=== PATIENT | male | born 1960 | race Caucasian/White ===

== ENCOUNTER 2021-07-03 15:29 | Inpatient (IN) | payer OTHER ==
[~2021-07-03] VITALS: Ht 175.3 cm; Wt 84.9 kg
[~2021-07-03 15:29] MED LIST: ACETAMINOPHEN 500 MG TAB (TYLENOL) PO PRN; ALPR0.254 PO; ALPRAZolam 0.25 MG (XANAX) TAB PO PRN; AMLO-250 PO; ASPI325T32 PO; ATOR20TA66 PO; BISACODYL 10 MG SUPP (DULCOLAX) PR PRN; CALCIUM CARBONATE 500 MG (TUMS) TAB.CHEW PO PRN; CLN.1T PO; DOCUSATE SODIUM 100 MG (COLACE) CAP PO PRN; ENOX30DI4 SQ; FLEET ENEMA ADULT 1 EA BTL PR PRN; GLUC1KIT2 IJ; HYDR-3924 PO; INSU100I34 SQ; INSU100V SQ; INSU100V39 SQ; LABE100T6 PO; LACTULOSE SYRUP 10GM/15ML (ENULOSE) 30ML UDC PO PRN; LOPERAMIDE 2 MG (IMODIUM) TABLET PO PRN; LOSA50TA63 PO; MECL50TA3 PO; MELATONIN 3 MG TABLET PO PRN; ONDANSETRON 4 MG (ZOFRAN) ORAL DISSOLVE TAB PO PRN; PAMI30VI8 SQ; PANT40TA52 PO; diphenhydrAMINE 25 MG TAB (BENADRYL) PO PRN; guaiFENesin/CODEINE (ROBITUSSIN AC) 10ML UDC PO PRN
--- NOTE | 2021-07-03 17:10 | PM&R Post Admission Assessment ---
PM&R HP Date of Visit: Jul 03, 2021 Time of Visit: 17:00 History of Present Illness CC: CVA HPI: This is a 61yoWM patient who transferred from [facility] due to debility following a CVA. He continues to have dizziness and is a major fall risk. Nephrotic syndrome dx by Nephrology. 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 He does not smoke or drink. Checked meds and labs and records from [facility]. No BM for several days and has difficulty sleeping. [facility] H&P: Aniyah Julien a 60 y.o.rivka patient of No primary care provider on file.who is being admitted through the emergency room with chief complaint of dizziness. Patient has a history of CKD, diabetes, hypertension. Patient started having room spinning dizziness that was worse with movement. This started yesterday around 3 pmand he also had associated nausea and vomiting.He laid down for 3 hours or so and was feeling better. He was able to drink water and sprite after that.He states it started while he was lying on the ground fixing his car. Dizziness did improve today, but he is still not to baseline. He has been having some nasal congestion and right ear pain and some swelling on the right side of his neck for the past 2 weeks. Patient tried to be ambulated in the ER, but was very off balance. He is not dizzy at rest. It comes on when he stands up, sitting up does not affect as much. Turning his head does not affect it. Past medical and surgical histories, family and social histories, allergies and medications were reviewed and verified with the patient. 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 He reported dizziness only when he went for his MRI otherwise feels fine. There was a concern of acute stroke in the occipital lobe and possible vertebral dissection by neurology. I discussed the case with radiology and no stroke was seen but will have the imagine review again by neuroradiologist. We have ordered MRA to evaluate his vertebral carotid arteries. No contrast due to CKD 06/28 patient was seen and examined. MRI showed acute punctate infarcts in the posterior aspect of the right cerebellar. I discussed with neurologist via secure chart. MRA not done yet. ECHO not done yet. Carotid US showed moderate disease. Reported dizziness with PT. Nephrology: Principal Problem: Hypertensive urgency Active Problems: Type 2 diabetes mellitus with hyperglycemia, without long-term current use of insulin Dizziness CKD (chronic kidney disease) stage 4, GFR 15-29 ml/min Tongue mass-incidental finding Acute suppurative otitis media Hypertensive emergency Head and neck cancer Acute kidney injury superimposed on CKD Demand ischemia Cerebellar stroke SHIV on CKD3-4 due to diabetic nephropathy, nephrotic range proteinuria, no need for urgent HD, US ordered. HTN urgency. Uncontrolled DM. Mild anemia. Electrolytes/ acid base ok. Will check PTH, vit D. Prognosis guarded. MRI: IMPRESSION: 1. Acute punctate infarcts are present along the posterior aspect of the right cerebellar hemisphere in the medial aspect of the left frontal lobe. No evidence of acute intracranial hemorrhage. 2. Patchy foci of signal abnormality in the white matter most likely reflect chronic microvascular disease. SUBJECTIVE: no new events per nursing; patient describes dizzyas near syncope &vertigo particularly when standing no headache, neck pain, double vision, vision loss, slurred speech, difficulty swallowing, difficulty finding words, difficulty walking, focal weakness / numbness / clumsiness, chest pain / pressure, SOB, palpitations, fevers, chills OBJECTIVE: 204/86, 98.4, 91 BPM, 18 RR 96% RA Awake, alert, attentive, NAD; comprehends following Vox3, produces normally and appropriately, no dysarthria Thomas full to monocular testing EOMI, no N, gaze conjugate and crossing midline Face symmetric, tongue midline, shrug 5/5 Strength B UE 5/5 proximal and distal Strength B LE 5/5 proximal and distal Sensation intact to touch B F-A-L No jerking, tremor R UE dysmetria LABS: MRI brain with L frontal DWI changes. TTE negative. ASSESSMENT: 61 yo M with hypertensive encephalopathy causing ischemic stroke RECOMMENDATIONS 1. Reduce SBP <160 now, target BP <140/90 within 6hr; recommend transfer to ICU for intravenous antihypertensive treatment 2. Aspirin 325mg, atorvastatin 40mg qd 3. CTA head & neck preferable over MRA 4. Check stroke serologies: ESR, CRP, HIV, RPR, fasting lipid panel, hemoglobin A1c, vitamin B12 5. PT, OT, ST 6. Call with questions [phone] This visit has been conducted by synchronous interactive video conference. The patient or patients representatives consented to the evaluation. This encounter is appropriate and reasonable under the circumstances given the patients particular presentation at this time. The patient/parent/guardian arteaga s/have been advised of the potential risks and limitations of this mode of assessment and treatment (including but not limited to the absence of in-person examination) and verbally consented for this virtual medicine visit. Any and all of the patients/patients familys questions on this issue have been answered. The patient is located at: [facility]. Staff that participated with the visit included: Facility Staff. I, Felipe Villavicencio MD, performed this video medicine visit from my offsite location at my [facility] [employer] [facility] [employer] office I spent approximately 50 minutes in reviewing clinical data in the EMR, examining the patient, and in preparation of this report Past Tlaxprz-Caoanh-Txegsc Hx Past Med/Social Hx: Reviewed Nursing Past Med/Soc Hx, Reviewed and Corrections made Patient Social History Marrital Status: Employed/Student: employed ([employer]) Alcohol Use: Denies Use Smoking Status: Never a Smoker Past Medical History Surgeries: Orthopedic Cardiac: High Cholesterol, Hypertension Neurological: Stroke Genitourinary: Renal Failure Musculoskeletal: Arthritis Endocrine: Diabetes, Non-Insulin dep HEENT: Cataract Psychosocial: Sleep Difficulties PM&R Allergy/Meds/Data Review Allergies Coded Allergies: diltiazem (Verified Allergy, Unknown, 07/03/21) Home Medications Scheduled Amlodipine Besylate (Amlodipine Besylate), 5 MG PO DAILY, (Reported) Aspirin (Aspirin EC), 325 MG PO DAILY, (Reported) Atorvastatin Calcium (Atorvastatin Calcium), 20 MG PO HS, (Reported) Clonidine HCl (Clonidine HCl), 0.1 MG PO BID, (Reported) Enoxaparin Sodium (Enoxaparin Sodium), 30 MG SQ DAILY, (Reported) Hydralazine HCl (Hydralazine HCl), 50 MG PO Q8H, (Reported) Insulin Glargine,Hum.rec.anlog (Basaglar Kwikpen U-100), 10 UNIT SQ HS, (Reported) Insulin Lispro (Humalog), 0-4 UNIT SQ TIDWM, (Reported) Insulin Lispro (Insulin Lispro), 0-3 UNIT SQ HS, (Reported) Labetalol HCl (Labetalol HCl), 100 MG PO Q8H, (Reported) Losartan Potassium (Losartan Potassium), 50 MG PO DAILY, (Reported) Meclizine HCl (Antivert), 50 MG PO TID, (Reported) Pantoprazole Sodium (Pantoprazole Sodium), 40 MG PO DAILY BEFORE BREAKFAST, (Reported) Scheduled PRN ALPRAZolam (ALPRAZolam), 0.25 MG PO BID PRN for ANXIETY, (Reported) Glucagon,Human Recombinant (Glucagen), 1 MG IJ UD PRN for HYPERGLYCEMIA, (Repo rted) Current Medications Current Medications Reviewed Review of Systems Constitutional: dizziness, malaise, weakness EENTM: blurred vision, double vision Respiratory: no symptoms reported Cardiovascular: no symptoms reported Gastrointestinal: constipation Genitourinary: decreased output Musculoskeletal: back pain, joint pain Skin: no symptoms reported Psychiatric/Neurological: Anxiety, Depressed, Tremors, Weakness Physical Exam Physical Exam Vital Signs Capillary Refill : Height, Weight, BMI Height: '" Weight: lbs. oz. kg; BMI Method: General Appearance: No Apparent Distress, WD/WN, Chronically ill Eyes: Bilateral Eye Normal Inspection, Bilateral Eye PERRL HEENT: PERRL/EOMI, Normal ENT Inspection, Pharynx Normal Neck: Full Range of Motion, Normal Inspection, Non Tender, Supple, Carotid Bruit Respiratory: Chest Non Tender, Lungs Clear, Normal Breath Sounds, No Accessory Muscle Use, No Respiratory Distress Cardiovascular: Regular Rate, Rhythm, No Edema, No Gallop, No JVD, No Murmur, Normal Peripheral Pulses Gastrointestinal: Normal Bowel Sounds, No Organomegaly, No Pulsatile Mass, Non Tender, Soft Back: Normal Inspection, No CVA Tenderness, No Vertebral Tenderness Extremity: Normal Capillary Refill, Normal Inspection, Normal Range of Motion, Non Tender, No Calf Tenderness, No Pedal Edema Neurologic/Psychiatric: Alert, Oriented x3, No Motor/Sensory Deficits, cutch cleaner II- XII Norm as Tested, Abnormal Gait, Depressed Affect, Motor Weakness (generalized 3/5) Skin: Normal Color, Warm/Dry Lymphatic: No Adenopathy PM&R Medical Assessment & Plan REHAB/MEDICAL ASSESSMENT AND PLAN: REHAB IMPAIRMENT GROUP: CVA ETIOLOGIC DIAGNOSIS: CVA The comorbidities that impact the patients function and/or functional outcome by: presumed ENT cancer undx as of yet, dizziness, fall risk, CKD REHAB PLAN: The patient is being admitted to our comprehensive inpatient rehabilitation facility and can tolerate the intensity of service consisting of at least: 180 minutes of therapy a day, 5 out of 7 days a week Rehab treatment will consist of: PT OT will focus on regaining ambulatory skills with assistive devices along with help in increasing ADL independence The patient/family has a good understanding of our discharge process and will benefit from an interdisciplinary inpatient rehabilitation program. The patient has potential to make improvement and is in need of at least two of the following multidisciplinary therapies including but not limited to physical, occupational, speech, and prosthetics and orthotics. Additionally the patient will need services from respiratory, nutritional services, wound care, psychology, etc. (Customize this to each patient). Given the patients complex condition and risk of further medical complications, rehabilitation services cannot be safely or effectively provided at a lower level of care such as a half-way facility. BARRIERS TO DISCHARGE: Dizziness ESTIMATED LOS: 14 days DISPOSITION: Home RELEVANT CHANGES SINCE PREADMISSION SCREENING: I have compared the patients medical and functional status at the time of the preadmission screening and there are: no changes PROGNOSIS: Good REHABILITATION GOALS: 1.PT OT will focus on regaining ambulatory skills with assistive devices along with help in increasing ADL independence All the above goals were reviewed with the patient and he/she is in agreement. By signing this document, I acknowledge that I have personally performed a full physical examination on this patient within 24 hours of admission to this inpatient rehabilitation facility and have determined the patient to be able to tolerate the above course of treatment at an intensive level for a reasonable period of time. I will be completing a detailed individualized Plan of Care for this patient by day #4 of the patients stay based upon the Preadmission Screen, the Post-Admission Evaluation, and the therapy evaluations. 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
[2021-07-03] MEDS ORDERED: MAGNESIUM CITRATE 300 ML BTL PO PRN (17:15)
[2021-07-03 18:20] VITALS: BP 145/65
[2021-07-03] MEDS: DOCUSATE SODIUM 100 MG (COLACE) CAP PO SCH (19:56)
[2021-07-03] MEDS: MIRTAZAPINE 15 MG (REMERON) TAB PO SCH (19:56)
[2021-07-03] MEDS: SENNA W/DOCUSATE (SENOKOT S) TABLET PO SCH (19:57)
[2021-07-03] MEDS: MECLIZINE 25 MG (ANTIVERT) TAB PO SCH (19:57)
[2021-07-03] MEDS: cloNIDine 0.1 MG (CATAPRES) TAB PO SCH (19:57)
[2021-07-03] MEDS: hydrALAZINE (APRESOLINE) 25 MG TAB PO SCH (19:57)
[2021-07-03 20:38] VITALS: BP 129/60
[2021-07-03] MEDS: MELATONIN 3 MG TABLET PO SCH (21:03)
[2021-07-03] MEDS: polyethylene glycoL POWDER 17 GM (MIRALAX) PACK PO SCH (21:03)
[2021-07-04] MEDS: hydrALAZINE (APRESOLINE) 25 MG TAB PO SCH ×3 (03:43→18:03)
[2021-07-04 06:03] LABS: BASOPHILS # (AUTO) 0.1 10^3/uL (0.0-0.1); BASOPHILS % (AUTO) 1 % (0-10); EOSINOPHILS # (AUTO) 0.4 10^3/uL (0.0-0.3); EOSINOPHILS % (AUTO) 3 % (0-10); HEMATOCRIT 22 % (40-54); HEMOGLOBIN 7.4 g/dL (13.3-17.7); LYMPHOCYTES # (AUTO) 2.3 10^3/uL (1.0-4.0); LYMPHOCYTES % (AUTO) 19 % (12-44); MEAN CORPUSCULAR HEMOGLOBIN 30 pg (25-34); MEAN CORPUSCULAR HGB CONC 33 g/dL (32-36); MEAN CORPUSCULAR VOLUME 89 fL (80-99); MEAN PLATELET VOLUME 9.2 fL (9.0-12.2); MONOCYTES # (AUTO) 0.9 10^3/uL (0.0-1.0); MONOCYTES % (AUTO) 7 % (0-12); NEUTROPHILS # (AUTO) 8.7 10^3/uL (1.8-7.8); NEUTROPHILS % (AUTO) 70 % (42-75); PLATELET COUNT 364 10^3/uL (130-400); WHITE BLOOD COUNT 12.5 10^3/uL (4.3-11.0)
[2021-07-04 06:11] LABS: ALBUMIN 2.6 GM/DL (3.2-4.5); POTASSIUM 4.9 MMOL/L (3.6-5.0)
[2021-07-04 06:12] LABS: CALCIUM 8.1 MG/DL (8.5-10.1)
[2021-07-04 06:14] LABS: TOTAL PROTEIN 5.3 GM/DL (6.4-8.2)
[2021-07-04 06:15] LABS: BILIRUBIN,TOTAL 0.3 MG/DL (0.1-1.0)
[2021-07-04 06:17] LABS: CREATININE SERUM 4.05 MG/DL (0.60-1.30)
--- NOTE | 2021-07-04 06:21 | PM&R Progress Note ---
Subjective HPI/CC On Admission Date Seen by Provider: Jul 04, 2021 Time Seen by Provider: 06:20 Subjective/Events-last exam 07/04/2021: Patient settling in well No BM yet only a few things that he is passed that are hard Continue on laxatives Creatinine 4.0 Hemoglobin 7.4 which is chronic No signs of bleeding Check meds and labs Therapy working with him Review of Systems General: Fatigue, Malaise Gastrointestinal: Constipation Objective Exam Vital Signs Vital Signs Date Time Temp Pulse Resp B/P (MAP) Pulse Ox O2 Delivery O2 Flow Rate FiO2 07/04/21 09:03 Room Air 07/04/21 08:00 37.0 73 18 165/72 (103) 97 Capillary Refill : General Appearance: No Apparent Distress, WD/WN, Chronically ill HEENT: PERRL/EOMI, Normal ENT Inspection, Pharynx Normal Neck: Full Range of Motion, Normal Inspection, Non Tender, Supple, Carotid Bruit Respiratory: Chest Non Tender, Lungs Clear, Normal Breath Sounds, No Accessory Muscle Use, No Respiratory Distress Cardiovascular: Regular Rate, Rhythm, No Edema, No Gallop, No JVD, No Murmur, Normal Peripheral Pulses Gastrointestinal: Normal Bowel Sounds, No Organomegaly, No Pulsatile Mass, Non Tender, Soft Back: Normal Inspection, No CVA Tenderness, No Vertebral Tenderness Extremity: Normal Capillary Refill, Normal Inspection, Normal Range of Motion, Non Tender, No Calf Tenderness, No Pedal Edema Neurologic/Psychiatric: Alert, Oriented x3, No Motor/Sensory Deficits, sanitarian inspector II- XII Norm as Tested, Abnormal Gait, Depressed Affect, Motor Weakness (generalized 3/5) Skin: Normal Color, Warm/Dry Lymphatic: No Adenopathy Results/Procedures Lab Laboratory Tests 07/04/21 05:56 Patient resulted labs reviewed. FIM Transfers Therapy Code Descriptions/Definitions Functional [place] Measure: 0=Not Assessed/NA 4=Minimal Assistance 1=Total Assistance 5=Supervision or Setup 2=Maximal Assistance 6=Modified [place] 3=Moderate Assistance 7=Complete IndependenceSCALE: Activities may be completed with or without assistive devices. 9-Llgjlsuznq-mzmywxl completes the activity by him/herself with no assistance from a helper. 5-Set-up or Clean-up Assistance-helper sets up or cleans up; patient completes activity. [place] assists only prior to or following the activity. 4-Supervision or Touching Assistance-helper provides verbal cues and/or touching/steadying and/or contact guard assistance as patient completes activity. Assistance may be provided throughout the activity or intermittently. 3-Partial/Moderate Assistance-helper does LESS THAN HALF the effort. [place] lifts, holds or supports trunk or limbs, but provides less than half the effort. 2-Substantial/Maximal Assistance-helper does MORE THAN HALF the effort. [place] lifts or holds trunk or limbs and provides more than half the effort. 4-Atpbbnrwx-illrba does ALL the effort. Patient does none of the effort to complete the activity. Or, the assistance of 2 or more helpers is required for the patient to complete the activity. If activity was not attempted, code reason: 7-Patient Refused. 9-Not Applicable-not attempted and the patient did not perform the activity before the current illness, exacerbation or injury. 10-Not Attempted due to Environmental Limitations-(lack of equipment, weather restraints, etc.). 88-Not Attempted due to Medical Conditions or Safety Concerns. 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
[2021-07-04 08:00] VITALS: BP 165/72
[2021-07-04] MEDS ORDERED: ENOXAPARIN 40 MG/0.4 ML (LOVENOX) SYR SQ SCH (09:00)
--- NOTE | 2021-07-04 09:31 | Occupational Therapy Eval ---
OT Evaluation-General/PLF Medical Diagnosis Admission Date Jul 03, 2021 at 18:12 Medical Diagnosis: CVA Onset Date: Jun 28, 2021 Therapy Diagnosis Therapy Diagnosis: Decreased ADL skills Precautions Precautions/Isolations: Fall Prevention, Standard Precautions, Pressure Ulcer Weight Bear Status Weight Bearing Restriction: Weight Bearing/Tolerated Referral Physician: Dr. Springer Referral Reason: Activity Tolerance, Self Care, Evaluation/Treatment, Strengthening/ROM Medical History Pertinent Medical History: DM, HTN Additional Medical History Proliferative retinopathy and macular edema, nephrotic syndrome, head and neck CA Current History Pt. became dizzy. Eventually went to hospital. Found to have CVA. Reviewed History: Yes Social History Home: Single Level Current Living Status: Spouse Entry Into Home: Level Entry Steps Into Home: 2 ADL-Prior Level of Function SCALE: Activities may be completed with or without assistive devices. 7-Ybavwargdb-ylytbww completes the activity by him/herself with no assistance from a helper. 5-Set-up or Clean-up Assistance-helper sets up or cleans up; patient completes activity. [place] assists only prior to or following the activity. 4-Supervision or Touching Assistance-helper provides verbal cues and/or touching/steadying and/or contact guard assistance as patient completes activity. Assistance may be provided throughout the activity or intermittently. 3-Partial/Moderate Assistance-helper does LESS THAN HALF the effort. [place] lifts, holds or supports trunk or limbs, but provides less than half the effort. 2-Substantial/Maximal Assistance-helper does MORE THAN HALF the effort. [place] lifts or holds trunk or limbs and provides more than half the effort. 8-Joemngljv-fzatqg does ALL the effort. Patient does none of the effort to complete the activity. Or, the assistance of 2 or more helpers is required for the patient to complete the activity. If activity was not attempted, code reason: 7-Patient Refused. 9-Not Applicable-not attempted and the patient did not perform the activity before the current illness, exacerbation or injury. 10-Not Attempted due to Environmental Limitations-(lack of equipment, weather restraints, etc.). 88-Not Attempted due to Medical Conditions or Safety Concerns. ADL PLOF Comments Pt. reports that he was independent with all tasks. 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 Spouse works outside of the home. Self Care: Independent Functional Cognition: Independent DME/Equipment Comments Pt. currently does not have any type of DME. Occupation: [employer] Self: Yes OT Current Status Subjective No pain reported. Pt. states that he has been significantly dizzy when he gets up, but does not report dizziness on this visit. He is concerned that he has not had a BM in over a week. Appearance Pt. in bed. Alert and pleasant. Agrees to work with OT. Mental Status/Objective Patient Orientation: Person, Place Current Glasses/Contacts: Yes Hand Dominance: Right Upper Extremity ROM WFL Upper Extremity Strength WFL upon strength testing. ADL-Treatment Eating (QC): 6 Oral Hygiene (QC): 7 Shower/Bathe Self (QC): 4 (CGA at times for safety while in shower.) Upper Body Dressing (QC): 4 (CGA while doffing/donning shirt for safety.) Lower Body Dressing (QC): 2 (Max assist overall. Pt. able to thread right LE into underwear and pants while seated, with min assist for balance. OT assisted to thread other leg, and then donned over hips while in stance. Pt. attempted to don over hips, but became unstable on feet.) On/Off Footwear (QC): 2 (OT donned pt's socks and slippers because he states that his spouse always does this for him at home. Pt. states that he can, but it is difficult. Pt. will need training on sock aide and adaptive equipment.) Toileting Hygiene (QC): 3 (Min assist for balance while cleansing self.) Other Treatments Pt. transfers supine-sit with CGA. He does not report dizziness, and states that he is not sure how he will do because he hasn't been up in a week. PT came in to assist with co-treat at this time for safety. PT assessed gait and guided walker, assessed balance, while OT donned shoes and guided pt. to toilet with min assist needed. Noted that pt's gait pattern is almost ataxic in nature. Pt. seems to have difficulty articulating his position in space, and needs constant min assist for guidance, mod assist at times. Pt able to stand with min assist, and then stood again from toilet with min assist. Transferred into shower and required constant supervision/CGA for safety. Pt. able to wash all parts, but does have difficulty reaching for bar, will overshoot/undershoot. Cues to sequence at times. Pt. donned shirt, but then did not pull down over torso. After dressing task, pt. ambulated to chair with min assist. OT brought in scan board, and pt. instructed to find specific pattern, and teller those. He had great difficulty with this. He states that he can't see well, but can't say exactly what that is. In the notes it is states that pt. has proliferative retinopathy and macular edema. Pt. did not mention this and seemed surprised by his vision. OT unaware at this time if visual loss is new due to CVA. Will assess more. Education OT Patient Education: Correct positioning, Modified ADL techniques, Progress toward Goal/Update tx plan, Purpose of tx/functional activities, Reviewed precautions, Rehab process, Transfer techniques Teaching Recipient: Patient Teaching Methods: Demonstration, Discussion Response to Teaching: Verbalize Understanding, Return Demonstration, Reinforcement Needed OT Short Term Goals Short Term Goals Time Frame: Jul 11, 2021 Eatin Oral hygiene: 4 Toileting hygiene: 4 Shower/bathe self: 4 Upper body dressin Lower body dressin Putting on/taking off footwear: 3 OT Usp Goals Chief Business Officer Goals Time Frame: Jul 18, 2021 Eating (QC): 6 Oral Hygiene (QC): 6 Toileting Hygiene (QC): 6 Shower/Bathe Self (QC): 5 Upper Body Dressing (QC): 6 Lower Body Dressing (QC): 5 On/Off Footwear (QC): 6 Additional Goals: 1-Demonstrate ADL Tasks, 2-Verbalize Understanding, 3- ImproveStrength/[place] 1=Demonstrate adherence to instructed precautions during ADL tasks. 2=Patient will verbalize/demonstrate understanding of assistive devices/modifications for ADL. 3=Patient will improve strength/tolerance for activity to enable patient to perform ADL's. OT Education/Plan Problem List/Assessment Assessment: Decreased Activ Tolerance, Dependent Transfers, Impaired Bed Mobility, Impaired Cognition, Impaired Coordination, Impaired Funct Balance, Impaired I ADL's, Impaired Self-Care Skills, Visual-Perceptual Deficit Discharge Recommendations Plan/Recommendations: Continue POC Therapy Discharge Recommendati: Home & Family, Post Acute OT Comment Equipment needs to be determined. Treatment Plan/Plan of Care Treatment,Training & Education: Yes Patient would benefit from OT for education, treatment and training to promote independence in ADL's, mobility, safety and/or upper extremity function for ADL's. Plan of Care: ADL Retraining, Functional Mobility, Group Exercise/Act as Ind, UE Funct Exercise/Act Treatment Duration: Jul 18, 2021 Frequency: At least 5 of 7 days/Wk (IRF) Estimated Hrs Per Day: 1.5 hours per day Agreement: Yes Rehab Potential: Good Time/GCodes Start Time: 07:50 Stop Time: 09:20 Total Time Billed (hr/min): 90 Billed Treatment Time 9415-3680 1, EVM x 10minutes, ADL x 15minutes [id number] ADL x 15minutes Co-treat with PT [id number] ADL x 30minutes, FA x 20minutes RAY AVILA OT Jul 04, 2021 09:31
[2021-07-04] MEDS: LOSARTAN 50 MG (COZAAR) TAB PO SCH (09:38)
[2021-07-04] MEDS: cloNIDine 0.1 MG (CATAPRES) TAB PO SCH ×2 (09:38→21:23)
[2021-07-04] MEDS: amLODIPine 5 MG (NORVASC) TAB PO SCH (09:38)
[2021-07-04] MEDS: SENNA W/DOCUSATE (SENOKOT S) TABLET PO SCH ×2 (09:38→21:23)
[2021-07-04] MEDS: MECLIZINE 25 MG (ANTIVERT) TAB PO SCH ×3 (09:38→21:23)
[2021-07-04] MEDS: polyethylene glycoL POWDER 17 GM (MIRALAX) PACK PO SCH ×2 (09:38→21:22)
[2021-07-04] MEDS: PANTOPRAZOLE 40 MG (PROTONIX) TAB PO SCH (09:38)
[2021-07-04] MEDS: DOCUSATE SODIUM 100 MG (COLACE) CAP PO SCH ×2 (09:38→21:23)
[2021-07-04] MEDS: ASPIRIN E.C. 325 MG (ECOTRIN) TABLET PO SCH (09:40)
[2021-07-04] MEDS: inSUlin ASPART (NovoLOG) 1 UNIT/0.01 ML (CHARGE PER UNIT) SC SCH ×3 (11:46→20:31)
--- NOTE | 2021-07-04 12:05 | Physical Therapy Evaluation ---
PT Evaluation-General Medical Diagnosis Admission Date Jul 03, 2021 at 18:12 Medical Diagnosis: CVA Onset Date: Jun 28, 2021 Therapy Diagnosis Therapy Diagnosis: Impaired mobility Precautions Precautions/Isolations: Fall Prevention, Standard Precautions, Pressure Ulcer Referral Physician: Dr. Springer Reason for Referral: Evaluation/Treatment Medical History Pertinent Medical History: CVA, DM, HTN Additional Medical History chronic kidney disease, L2-4 fracture Current History 1 week ago began having dizziness and listing to the (R). Found to have had a CVA. Transferred to [facility] Rehab yesterday afternoon. Reviewed History: Yes Social History Home: Single Level Current Living Status: Spouse Entry Into Home: Level Entry PT Steps Into Home: 2 PT Steps Inside Home: 0 Prior Prior Level of Function SCALE: Activities may be completed with or without assistive devices. 3-Xsjljldujf-ongdqux completes the activity by him/herself with no assistance from a helper. 5-Set-up or Clean-up Assistance-helper sets up or cleans up; patient completes activity. [place] assists only prior to or following the activity. 4-Supervision or Touching Assistance-helper provides verbal cues and/or touching/steadying and/or contact guard assistance as patient completes activity. Assistance may be provided throughout the activity or intermittently. 3-Partial/Moderate Assistance-helper does LESS THAN HALF the effort. [place] lifts, holds or supports trunk or limbs, but provides less than half the effort. 2-Substantial/Maximal Assistance-helper does MORE THAN HALF the effort. [place] lifts or holds trunk or limbs and provides more than half the effort. 7-Lhjuhikbw-ixkows does ALL the effort. Patient does none of the effort to complete the activity. Or, the assistance of 2 or more helpers is required for the patient to complete the activity. If activity was not attempted, code reason: 7-Patient Refused. 9-Not Applicable-not attempted and the patient did not perform the activity before the current illness, exacerbation or injury. 10-Not Attempted due to Environmental Limitations-(lack of equipment, weather restraints, etc.). 88-Not Attempted due to Medical Conditions or Safety Concerns. Bed Mobility: 6 Transfers (B,C,W/C): 6 Gait: 6 Stairs: 6 Wheelchair Mobility: 9 Indoor Mobility (Ambulation): Independent Stairs: Independent Prior Devices Use: None PT Evaluation-Current Subjective Pt reports dizziness with supine to sit and with prolonged activity in standing. Pt/Family Goals Return home. Objective Patient Orientation: Person, Place, Time, Situation ROM/Strength ROM Upper Extremities WFL ROM Lower Extremities WFL Strength Upper Extremities 5/5 (B) Strength Lower Extremities 5/5 (B) Integumentary/Posture Bowel Incontinence: No Bladder Incontinence: No Neuromuscular (Tone, Coordination, Reflexes) Normal (B) UE/LE reflexes. Slight impairment with (R) LE coordination during standing testing. Sensory Vision: Wears Glasses Hearing: Functional Hand Dominance: Right Sensation Right Upper Extremit: Intact Sensation Left Upper Extremity: Intact Sensation Right Lower Extremit: Intact Sensation Left Lower Extremity: Intact Transfers Roll Left & Right (QC): 3 Sit to Lying (QC): 3 Lying to Sitting/Side of Bed(Q: 3 Sit to Stand (QC): 3 Chair/Fas-xs-Lygrl Xfer(QC): 2 Toilet Transfer (QC): 2 Car Transfer (QC): 2 Gait Does the Patient Walk?: Yes Mode of Locomotion: Walk Anticipated Mode of Locomotion: Walk Walk 10 feet (QC): 2 Walk 50 ft with 2 Turns(QC): 2 Walk 150 ft (QC): 88 Walking 10ft/uneven surface-QC: 2 Distance: 135ft Gait Assistive Device: FWW Comments/Gait Description Pt lists to the (R) intermittently. This is most prevalent after ambulating for >3min or when standing and exercising without UE support. Wheelchair Training Does the Pt Use a Wheelchair?: No Wheel 50 ft with 2 turns (QC): 9 Wheel 150 ft (QC): 9 Stairs #of Steps: 1 1 Step (curb) (QC): 2 4 Steps (QC): 88 12 Steps (QC): 88 Walking Assistive Device: Walker Balance Sitting Static: Good Sitting Dynamic: Fair Standing Static: Poor Standing Dynamic: Poor Picking up an Object (QC): 1 Special Test Comments Performed the Hallpike Will test due to pt report of symptoms beginning after lying on his side working on a vehicle. Pt had (L) torsional nystagmus with (L) posterior canal testing. Performed the Thu maneuver for the (L) side. Repeat testing of the (L) posterior canal was normal. Pt noted the dizziness with head movement was improved. However, his ambulation and balance were unchanged following the treatment. Assessment/Needs Pt has poor balance during ambulation and transfers. He would benefit from PT to address the ambulation and balance to allow him to return home (I). Rehab Potential: Good PT Halfway Goals Halfway Goals PT [id number] Programmer Goals Time Frame: Jul 18, 2021 Roll Left & Right (QC): 5 Sit to Lying (QC): 5 Lying-Sitting on Side/Bed(QC): 5 Sit to Stand (QC): 5 Chair/Khh-mf-Jiyeh Xfer(QC): 5 Toilet Transfer (QC): 5 Car Transfer (QC): 55 Does the Patient Walk: Yes Walk 10 feet (QC): 5 Walk 50ft with 2 Turns (QC): 5 Walk 150 ft (QC): 5 Walking 10ft on Uneven Surface: 5 1 Step (curb) (QC): 5 4 Steps (QC): 5 12 Steps (QC): 5 Picking up an Object (QC): 5 Does the Pt use WC or Scooter?: No Wheel 50 feet with 2 turns (QC: 9 Wheel 150 feet: 9 PT Plan Problem List Problem List: Activity Tolerance, Safety, Balance, Gait, Transfer, Bed Mobility Treatment/Plan Treatment Plan: Continue Plan of Care Treatment Plan: Bed Mobility, Concurrent Therapy, Education, Functional Activity Navya, Functional Strength, Group Therapy, Gait, Safety, Therapeutic Exercise, Transfers Treatment Duration: Jul 18, 2021 Frequency: At least 5 of 7 days/Wk (IRF) Estimated Hrs Per Day: 1.5 hours per day Patient and/or Family Agrees t: Yes Time/GCodes Time In: 1002 Time Out: 1054 Total Billed Treatment Time: 52 Total Billed Treatment 1, chris 35, gt 17 MEIR FERNANDEZ PT Jul 04, 2021 12:05
--- NOTE | 2021-07-04 12:17 | Physical Therapy Daily Note ---
PT Daily Note-Current Subjective Pt continued to report dizziness with supine to sit and head movements. Mental Status Patient Orientation: Person, Place, Time, Situation Transfers SCALE: Activities may be completed with or without assistive devices. 4-Cveqqkuyvb-ygqmskl completes the activity by him/herself with no assistance from a helper. 5-Set-up or Clean-up Assistance-helper sets up or cleans up; patient completes activity. [place] assists only prior to or following the activity. 4-Supervision or Touching Assistance-helper provides verbal cues and/or touching/steadying and/or contact guard assistance as patient completes activity. Assistance may be provided throughout the activity or intermittently. 3-Partial/Moderate Assistance-helper does LESS THAN HALF the effort. [place] lifts, holds or supports trunk or limbs, but provides less than half the effort. 2-Substantial/Maximal Assistance-helper does MORE THAN HALF the effort. [place] lifts or holds trunk or limbs and provides more than half the effort. 9-Pkqeprwiu-ijsnoa does ALL the effort. Patient does none of the effort to complete the activity. Or, the assistance of 2 or more helpers is required for the patient to complete the activity. If activity was not attempted, code reason: 7-Patient Refused. 9-Not Applicable-not attempted and the patient did not perform the activity before the current illness, exacerbation or injury. 10-Not Attempted due to Environmental Limitations-(lack of equipment, weather restraints, etc.). 88-Not Attempted due to Medical Conditions or Safety Concerns. Roll Left & Right (QC): 3 Sit to Lying (QC): 3 Lying to Sitting/Side of Bed(Q: 3 Sit to Stand (QC): 3 Chair/Dzu-rs-Kawas Xfer(QC): 3 Toilet Transfer (QC): 3 Gait Training Does the Patient Walk?: Yes Distance: 80ft x3 Gait Assistive Device: FWW Wheelchair Training Does the Pt Use a Wheelchair?: No Exercises Standing: Dynamic Reaching Ex, Floor clock, Heel/toe raises, 3 way Ex=Flex, Abd, Ext, Sit to Stand Standing Reps: 20 Neuromuscular Performed the Hallpike test. Normal ocular response (B). Continued feeling of dizziness with supine to sit. Treatments Neuromuscular re-education with standing habituation training, no hands, head movements up/down, sides, side bend, and ocular movements. [id number]. Assessment Current Status: Fair Progress Continued dizziness and instability with prolonged activity. Pt requires constant assistance to remain vertical during gait. PT Halfway Goals Beef Cattle Grazier Goals PT Halfway Goals Time Frame: Jul 18, 2021 Roll Left & Right (QC): 5 Sit to Lying (QC): 5 Lying-Sitting on Side/Bed(QC): 5 Sit to Stand (QC): 5 Chair/Ruy-nz-Ragdn Xfer(QC): 5 Toilet Transfer (QC): 5 Car Transfer (QC): 55 Does the Patient Walk: Yes Walk 10 feet (QC): 5 Walk 50ft with 2 Turns (QC): 5 Walk 150 ft (QC): 5 Walking 10ft on Uneven Surface: 5 1 Step (curb) (QC): 5 4 Steps (QC): 5 12 Steps (QC): 5 Picking up an Object (QC): 5 Does the Pt use WC or Scooter?: No Wheel 50 feet with 2 turns (QC: 9 Wheel 150 feet: 9 PT Plan Treatment/Plan Treatment Plan: Continue Plan of Care Treatment Plan: Bed Mobility, Concurrent Therapy, Education, Functional Activity Navya, Functional Strength, Group Therapy, Gait, Safety, Therapeutic Exercise, Transfers Treatment Duration: Jul 18, 2021 Frequency: At least 5 of 7 days/Wk (IRF) Estimated Hrs Per Day: 1.5 hours per day Patient and/or Family Agrees t: Yes Time/GCodes Time In: 1120 Time Out: 1158 Total Billed Treatment Time: 38 Total Billed Treatment 1, gt 10, ex 12, nm 16 MEIR FERNANDEZ PT Jul 04, 2021 12:17
[2021-07-04 20:02] VITALS: BP 151/66
[2021-07-04] MEDS: MELATONIN 3 MG TABLET PO SCH (21:23)
[2021-07-04] MEDS: MIRTAZAPINE 15 MG (REMERON) TAB PO SCH (21:23)
[2021-07-05] MEDS: hydrALAZINE (APRESOLINE) 25 MG TAB PO SCH ×3 (03:25→18:02)
--- NOTE | 2021-07-05 05:59 | PM&R Progress Note ---
Subjective HPI/CC On Admission Date Seen by Provider: Jul 05, 2021 Time Seen by Provider: 06:00 Subjective/Events-last exam 07/05/2021: Patient doing well No concerns Bowel evacuation in process Maintained on laxatives No pain is reported We will start an IV iron infusion and vitamin B12 07/04/2021: Patient settling in well No BM yet only a few things that he is passed that are hard Continue on laxatives Creatinine 4.0 Hemoglobin 7.4 which is chronic No signs of bleeding Check meds and labs Therapy working with him Review of Systems General: Fatigue, Malaise Neurological: Weakness Objective Exam Vital Signs Vital Signs Date Time Temp Pulse Resp B/P (MAP) Pulse Ox O2 Delivery O2 Flow Rate FiO2 07/05/21 11:32 72 159/73 (101) 07/05/21 09:16 Room Air 07/05/21 07:30 36.4 22 96 Capillary Refill : General Appearance: No Apparent Distress, WD/WN, Chronically ill HEENT: PERRL/EOMI, Normal ENT Inspection, Pharynx Normal Neck: Full Range of Motion, Normal Inspection, Non Tender, Supple, Carotid Bruit Respiratory: Chest Non Tender, Lungs Clear, Normal Breath Sounds, No Accessory Muscle Use, No Respiratory Distress Cardiovascular: Regular Rate, Rhythm, No Edema, No Gallop, No JVD, No Murmur, Normal Peripheral Pulses Gastrointestinal: Normal Bowel Sounds, No Organomegaly, No Pulsatile Mass, Non Tender, Soft Back: Normal Inspection, No CVA Tenderness, No Vertebral Tenderness Extremity: Normal Capillary Refill, Normal Inspection, Normal Range of Motion, Non Tender, No Calf Tenderness, No Pedal Edema Neurologic/Psychiatric: Alert, Oriented x3, No Motor/Sensory Deficits, natural gas inspector II- XII Norm as Tested, Abnormal Gait, Depressed Affect, Motor Weakness (generalized 3/5) Skin: Normal Color, Warm/Dry Lymphatic: No Adenopathy Results/Procedures Lab Patient resulted labs reviewed. FIM Transfers Therapy Code Descriptions/Definitions Functional [place] Measure: 0=Not Assessed/NA 4=Minimal Assistance 1=Total Assistance 5=Supervision or Setup 2=Maximal Assistance 6=Modified [place] 3=Moderate Assistance 7=Complete IndependenceSCALE: Activities may be completed with or without assistive devices. 3-Bxcswfinxg-xrqktit completes the activity by him/herself with no assistance from a helper. 5-Set-up or Clean-up Assistance-helper sets up or cleans up; patient completes activity. [place] assists only prior to or following the activity. 4-Supervision or Touching Assistance-helper provides verbal cues and/or touching/steadying and/or contact guard assistance as patient completes activity. Assistance may be provided throughout the activity or intermittently. 3-Partial/Moderate Assistance-helper does LESS THAN HALF the effort. [place] lifts, holds or supports trunk or limbs, but provides less than half the effort. 2-Substantial/Maximal Assistance-helper does MORE THAN HALF the effort. [place] lifts or holds trunk or limbs and provides more than half the effort. 8-Uhvchispc-ogxygn does ALL the effort. Patient does none of the effort to complete the activity. Or, the assistance of 2 or more helpers is required for the patient to complete the activity. If activity was not attempted, code reason: 7-Patient Refused. 9-Not Applicable-not attempted and the patient did not perform the activity before the current illness, exacerbation or injury. 10-Not Attempted due to Environmental Limitations-(lack of equipment, weather restraints, etc.). 88-Not Attempted due to Medical Conditions or Safety Concerns. Roll Left to Right (QC): 3 Sit to Lying (QC): 3 Sit to Stand (QC): 3 Chair/Eka-kt-Qexup Xfer(QC): 3 Car Transfer (QC): 2 Gait Training Does the Patient Walk?: Yes Distance: 80ft x3 Walk 10 feet (QC): 2 Walk 50 ft with 2 Turns(QC): 2 Walk 150 ft (QC): 88 Walking 10ft/uneven surface-QC: 2 Gait Assistive Device: FWW Wheelchair Training Does the Pt Use a Wheelchair?: No Wheel 50 ft with 2 turns (QC): 9 Wheel 150 ft (QC): 9 Stair Training #of Steps: 1 1 Step (curb) (QC): 2 4 Steps (QC): 88 12 Steps (QC): 88 Balance Picking up an Object (QC): 1 ADL-Treatment Eating (QC): 6 Oral Hygiene (QC): 7 Shower/Bathe Self (QC): 4 (CGA at times for safety while in shower.) Upper Body Dressing (QC): 4 (CGA while doffing/donning shirt for safety.) Lower Body Dressing (QC): 2 (Max assist overall. Pt. able to thread right LE into underwear and pants while seated, with min assist for balance. OT assisted to thread other leg, and then donned over hips while in stance. Pt. attempted to don over hips, but became unstable on feet.) On/Off Footwear (QC): 2 (OT donned pt's socks and slippers because he states that his spouse always does this for him at home. Pt. states that he can, but it is difficult. Pt. 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
--- NOTE | 2021-07-05 05:59 | Individualized Plan of Care ---
Individualized Plan of Care Rehab Nursing IPOC Order Admission Date Jul 03, 2021 at 18:12 Current Orders Orders Admission Order(Inpt,Obs,Sdc) (07/03/21 10:47) Vital Signs: Per Unit Policy ( ,16,00 (07/03/21 10:47) Italo Valenzuela (07/03/21 10:47) Sequential Compression Device .admit (07/03/21 10:47) Lead Driver-Inpt Rehab Con (07/03/21 10:47) Rehab Nursing Orders-Ipoc (07/03/21 10:47) Physical Therapy Rehab Orders (07/03/21 10:47) Occupational Therapy Rehab Ord (07/03/21 10:47) Speech Therapy Rehab Orders (07/03/21 10:47) Cbc With Automated Diff (07/04/21 06:00) Comprehensive Metabolic Panel (07/04/21 06:00) Precautions (Aru) (07/03/21 10:47) Rehab-Intensity Of Therapy (07/03/21 10:47) Initiate Admission Nursing Pro .admission (07/03/21 10:47) Alprazolam Tablet (Xanax Tablet) (07/03/21 11:00) Calcium Carbonate Chew Tablet (Antacid C (07/03/21 11:00) Diphenhydramine Tablet (Benadryl Tablet) (07/03/21 11:00) Docusate Sodium Capsule (Colace Capsule) (07/03/21 21:00) Docusate Sodium Capsule (Colace Capsule) (07/03/21 11:00) Bisacodyl Suppository (Dulcolax Supposit (07/03/21 11:00) Lactulose Oral Solution (Enulose Oral So (07/03/21 11:00) Na Phos/Na Biphos Enema (Fleet Enema Juan (07/03/21 11:00) Guaifenesin/Codeine Syrup (Robitussin Ac (07/03/21 11:00) Loperamide Tablet (Imodium Tablet) (07/03/21 11:00) Melatonin Tablet (Melatonin Tablet) (07/03/21 11:00) Polyethylene Glycol Powder Pkt (Miralax (07/03/21 21:00) Ondansetron Oral Dissolve Tab (Zofran (07/03/21 11:00) Senna S Tablet (Senokot S Tablet) (07/03/21 21:00) Code/Resuscitation (07/03/21 10:47) Initiate Admission Nursing Pro .admission (07/03/21 10:47) Acetaminophen Tablet (Tylenol Tablet) (07/03/21 11:00) Amlodipine Tablet (Norvasc Tablet) (07/04/21 09:00) Aspirin Enteric Coated Tablet (Ecotrin T (07/04/21 09:00) Atorvastatin Tablet (Lipitor Tablet) (07/03/21 21:00) Clonidine Tablet (Catapres Tablet) (07/03/21 21:00) Losartan Tablet (Cozaar Tablet) (07/04/21 09:00) Pantoprazole Tablet (Protonix Tablet) (07/04/21 09:00) Hydralazine Tablet (Apresoline Tablet) (07/03/21 19:00) Insulin Determir (Per Unit) (Levemir (Pe (07/03/21 21:00) Meclizine Tablet (Antivert Tablet) (07/03/21 21:00) Magnesium Citrate Oral Soln (Citrate Of (07/03/21 17:15) Soap Suds Enema Until Clear (07/03/21 17:09) Melatonin Tablet (Melatonin Tablet) (07/03/21 21:00) Mirtazapine Tablet (Remeron Tablet) (07/03/21 21:00) Heart Healthy (07/03/21 Dinner) Enoxaparin Injection (Lovenox Injection) (07/04/21 09:00) Accucheck Achs ACHS (07/04/21 06:35) Insulin Aspart (Novolog) (Novolog (Charg (07/04/21 11:00) Vitamin B 12 (07/04/21 06:35) Iron Test (Fe) (07/04/21 06:35) Heparin Injection (Heparin Injection) (07/04/21 06:45) Occult Blood Stool (07/04/21 06:35) Patient Visit (07/04/21 ) Pt Eval Low Complexity (07/04/21 ) Gait Training, Ea 15 Min (07/04/21 ) Exercise Therap, Ea 15 Min (07/04/21 ) Ex Neuromuscular, Ea 15 Min (07/04/21 ) Iron Sucrose Injection (Venofer Injectio (07/05/21 09:00) Iv Heplock-Insert (Order) (07/05/21 06:14) Cyanocobalamin Injection (Vitamin B-12 I (07/05/21 06:15) Cyanocobalamin Tablet (Vitamin B-12 Tabl (07/05/21 07:00) Rehab Nursing Orders: Ongoing Assess. of Cognitive Status, Ongoing Assess. of Function Status, Bladder Management, Bladder Scan, Bladder Training, Bowel Management, Bowel Training, Disease Management & Educaiton, DVT Prophylaxis, Fall Prevention, Fluid/Electrolyte/Nutrition Mgmt, Infection Prevention, Medication Management & Education, Management of Risks & Complications, Management of Skin Intergrity, Nutrition Management, Pain Management, Patient/Family Support, Safety Management, Swallow Precautions Intensity of Therapy to be met Patient to be seen: Min.3h per day/5 of 7d PT IPOC Problem List: Activity Tolerance, Safety, Balance, Gait, Transfer, Bed Mobility Treatment Plan: Continue Plan of Care Bed Mobility, Concurrent Therapy, Education, Functional Activity Navya, Functional Strength, Group Therapy, Gait, Safety, Therapeutic Exercise, Transfers Treatment Duration: Jul 18, 2021 Frequency: At least 5 of 7 days/Wk (IRF) Estimated Hrs Per Day: 1.5 hours per day OT IPOC Problems: Decreased Activ Tolerance, Dependent Transfers, Impaired Bed Mobility, Impaired Cognition, Impaired Coordination, Impaired Funct Balance, Impaired I ADL's, Impaired Self-Care Skills, Visual-Perceptual Deficit OT Treatment, Training and Edu: Yes Plan of Care: ADL Retraining, Functional Mobility, Group Exercise/Act as Ind, UE Funct Exercise/Act Treatment Duration: Jul 18, 2021 Frequency: At least 5 of 7 days/Wk (IRF) Estimated Hrs Per Day: 1.[address] IPOC Speech Therapy Treatment Plan: Modify Plan, See Comments Treatment Duration: Jul 06, 2021 Frequency: 2 times per week Estimated Hrs Per Day: Other Lead Driver/Case Mgmt Lead Driver/Case Managemen: Discharge Planning Dietitian/Marine Service Operator Dietitian/Marine Service Operator to monitor nutritional status and make changes and/or recommendations as needed and work with speech pathology on dietary upgrades as the occur. Physician IPOC Medical Issues being managed closely and that require the 24 hour availability of a physician: Recent stroke with hypertensive urgency with severe dizziness and disequilibrium with chronic kidney disease creatinine 4.0 with iron deficiency anemia will be monitored for any type of decompensation Medical Issues: Bowel/Bladder Function, DVT Prophylaxis, Falls Precautions, Fluid/Electrolyte/Nutrition Balance, Infection Protection, Pain Management, Swallowing Precautions Brief Synthesis of Preadmission Screen, Post-Admission Evaluation, and Therapy Evaluations: PT and OT will focus on ambulation with assistive devices along with fall risk prevention and increase independence in ADLs in order to return back home with spouse Medical Prognosis: Guarded Anticipated Length of Stay: 14 days MICHELLE ABBASI DO Jul 05, 2021 05:59
[2021-07-05] MEDS ORDERED: CYANOCOBALAMIN INJ 1000 MCG/ML IM ONE (06:15)
[2021-07-05] MEDS: inSUlin ASPART (NovoLOG) 1 UNIT/0.01 ML (CHARGE PER UNIT) SC SCH ×4 (06:21→20:26)
[2021-07-05] MEDS: CYANOCOBALAMIN 1,000 MCG (VITAMIN B-12) TABLET PO SCH (06:44)
[2021-07-05 07:30] VITALS: BP 163/71
[2021-07-05] MEDS: ASPIRIN E.C. 325 MG (ECOTRIN) TABLET PO SCH (08:09)
[2021-07-05] MEDS: LOSARTAN 50 MG (COZAAR) TAB PO SCH (08:09)
[2021-07-05] MEDS: amLODIPine 5 MG (NORVASC) TAB PO SCH (08:09)
[2021-07-05] MEDS: DOCUSATE SODIUM 100 MG (COLACE) CAP PO SCH ×2 (08:09→21:21)
[2021-07-05] MEDS: SENNA W/DOCUSATE (SENOKOT S) TABLET PO SCH ×2 (08:09→21:21)
[2021-07-05] MEDS: MECLIZINE 25 MG (ANTIVERT) TAB PO SCH ×3 (08:09→21:20)
[2021-07-05] MEDS: cloNIDine 0.1 MG (CATAPRES) TAB PO SCH ×2 (08:10→21:20)
[2021-07-05] MEDS: polyethylene glycoL POWDER 17 GM (MIRALAX) PACK PO SCH ×2 (08:10→21:21)
[2021-07-05] MEDS: PANTOPRAZOLE 40 MG (PROTONIX) TAB PO SCH (08:10)
[2021-07-05] MEDS: IRON SUCROSE 200 MG/10 ML (VENOFER) VIAL IV SCH (09:03)
[2021-07-05 11:32] VITALS: BP 159/73
[2021-07-05 18:02] VITALS: BP 174/81
[2021-07-05 19:03] VITALS: BP 160/74
[2021-07-05] MEDS: MIRTAZAPINE 15 MG (REMERON) TAB PO SCH (21:20)
[2021-07-05] MEDS: MELATONIN 3 MG TABLET PO SCH (21:20)
[2021-07-06] MEDS: hydrALAZINE (APRESOLINE) 25 MG TAB PO SCH ×3 (03:35→21:33)
[2021-07-06] MEDS: CYANOCOBALAMIN 1,000 MCG (VITAMIN B-12) TABLET PO SCH (06:39)
[2021-07-06] MEDS: inSUlin ASPART (NovoLOG) 1 UNIT/0.01 ML (CHARGE PER UNIT) SC SCH ×4 (06:40→20:58)
[2021-07-06 07:27] VITALS: BP 183/81
[2021-07-06] MEDS: MECLIZINE 25 MG (ANTIVERT) TAB PO SCH ×3 (08:36→21:30)
[2021-07-06] MEDS: cloNIDine 0.1 MG (CATAPRES) TAB PO SCH ×3 (08:36→21:32)
[2021-07-06] MEDS: DOCUSATE SODIUM 100 MG (COLACE) CAP PO SCH ×2 (08:36→21:31)
[2021-07-06] MEDS: polyethylene glycoL POWDER 17 GM (MIRALAX) PACK PO SCH ×2 (08:36→21:29)
[2021-07-06] MEDS: ASPIRIN E.C. 325 MG (ECOTRIN) TABLET PO SCH (08:36)
[2021-07-06] MEDS: LOSARTAN 50 MG (COZAAR) TAB PO SCH (08:36)
[2021-07-06] MEDS: PANTOPRAZOLE 40 MG (PROTONIX) TAB PO SCH (08:36)
[2021-07-06] MEDS: SENNA W/DOCUSATE (SENOKOT S) TABLET PO SCH ×2 (08:36→21:29)
[2021-07-06] MEDS: amLODIPine 5 MG (NORVASC) TAB PO SCH ×2 (08:36→21:34)
--- NOTE | 2021-07-06 08:53 | Occupational Ther Daily Note ---
OT Current Status-Daily Note Subjective Pt alert, laying with HOB raised when OT entered. Pt agreed to therapy. No c/o pain reported. Mental Status/Objective Patient Orientation: Person, Place, Time, Situation Attachments: IV ADL-Treatment Co-treat with PT ([id number]) due to decreased activity tolerance, poor balance, and increase fall risk . PT focusing on gait, transfers, and balance while OT focuses on functional/safe sitting/standing balance, sponge bath/dressing task, and hand placement during transfers. Pt requested to complete sponge bath at EOB. Pt transferred to EOB to complete sponge bath. Pt cleansed/dried UB, LB, chest, abdomen, and juan parts while seated at EOB with CGA due to decreased dynamic sitting balance. Pt sit-stand from EOB to FWW and required Mod A due to decrease standing balance to cleanse buttocks. After set up, pt donned UB dressing. Pt able to thread right LE into underwear and pants while seated, with min assist for balance. OT assisted to thread other leg due to decreased sitting balance. Pt sit-stand from EOB to FWW. Pt required CGA to stabilize pt and Mod A to hike LB dressing. Pt donned socks using figure 4 technique with CGA due to leaning. After set up, pt donned slip on shoes. Therapy Code Descriptions/Definitions Functional [place] Measure: 0=Not Assessed/NA 4=Minimal Assistance 1=Total Assistance 5=Supervision or Setup 2=Maximal Assistance 6=Modified [place] 3=Moderate Assistance 7=Complete IndependenceSCALE: Activities may be completed with or without assistive devices. 0-Jzonfwplhr-nivyqdk completes the activity by him/herself with no assistance from a helper. 5-Set-up or Clean-up Assistance-helper sets up or cleans up; patient completes activity. [place] assists only prior to or following the activity. 4-Supervision or Touching Assistance-helper provides verbal cues and/or touching/steadying and/or contact guard assistance as patient completes activity. Assistance may be provided throughout the activity or intermittently. 3-Partial/Moderate Assistance-helper does LESS THAN HALF the effort. [place] lifts, holds or supports trunk or limbs, but provides less than half the effort. 2-Substantial/Maximal Assistance-helper does MORE THAN HALF the effort. [place] lifts or holds trunk or limbs and provides more than half the effort. 5-Dvdtkjfqi-shhwdv does ALL the effort. Patient does none of the effort to complete the activity. Or, the assistance of 2 or more helpers is required for the patient to complete the activity. If activity was not attempted, code reason: 7-Patient Refused. 9-Not Applicable-not attempted and the patient did not perform the activity before the current illness, exacerbation or injury. 10-Not Attempted due to Environmental Limitations-(lack of equipment, weather restraints, etc.). 88-Not Attempted due to Medical Conditions or Safety Concerns. Other Treatment Pt sit-stand from EOB to FWW. Pt ambulated throughout [facility] using FWW to increase functional/safe mobility. See PT notes for assistance with mobility. Pt required resting break due decreased activity tolerance and pt reporting feeling dizzy. Pt ambulated to gym using FWW. Pt participated in dynamic/static standing/sitting test due to uncoordinated movement patterns. Pt tolerated test well, required multiple resting break throughout session due to feeling dizzy, pt able to recover. See PT notes for accurate scores on test. After session, pt with PT in gym. All needs met. Education OT Patient Education: Correct positioning, Energy conservation, Modified ADL techniques, Safety issues Teaching Recipient: Patient Teaching Methods: Demonstration, Discussion Response to Teaching: Verbalize Understanding OT Short Term Goals Short Term Goals Time Frame: Jul 11, 2021 Eatin Oral hygiene: 4 Toileting hygiene: 4 Shower/bathe self: 4 Upper body dressin Lower body dressin Putting on/taking off footwear: 3 OT Bunch Breaker Machine Operator Goals Bunch Breaker Machine Operator Goals Time Frame: Jul 18, 2021 Eating (QC): 6 Oral Hygiene (QC): 6 Toileting Hygiene (QC): 6 Shower/Bathe Self (QC): 5 Upper Body Dressing (QC): 6 Lower Body Dressing (QC): 5 On/Off Footwear (QC): 6 Additional Goals: 1-Demonstrate ADL Tasks, 2-Verbalize Understanding, 3-ImproveStrength/Navya 1=Demonstrate adherence to instructed precautions during ADL tasks. 2=Patient will verbalize/demonstrate understanding of assistive devices/modifications for ADL. 3=Patient will improve strength/tolerance for activity to enable patient to perform ADL's. OT Education/Plan Problem List/Assessment Assessment: Decreased Safety Aware, Impaired Coordination, Impaired Funct Balance, Impaired Self-Care Skills Discharge Recommendations Plan/Recommendations: Continue POC Treatment Plan/Plan of Care Patient would benefit from OT for education, treatment and training to promote independence in ADL's, mobility, safety and/or upper extremity function for ADL's. Plan of Care: ADL Retraining, Functional Mobility, Group Exercise/Act as Ind, UE Funct Exercise/Act Treatment Duration: Jul 18, 2021 Frequency: At least 5 of 7 days/Wk (IRF) Estimated Hrs Per Day: 1.5 hours per day Agreement: Yes Rehab Potential: Good Time/GCodes Start Time: 08:00 Stop Time: 09:00 Total Time Billed (hr/min): 60 Billed Treatment Time 1 visit -ADL 2 ( 32 mins) FA 2 (28 mins) Co treat ([id number]) CHAVEZ JEFF Jul 06, 2021 08:53
--- NOTE | 2021-07-06 09:13 | Physical Therapy Daily Note ---
PT Daily Note-Current Subjective Pt in bed upon arrival and agrees to co-treat. Pt has no c/o pain at this time. Co-treat d/t pt poor mobility, balance, safety, and decrease risk of falls. Mental Status Patient Orientation: Person, Place, Time, Situation Transfers SCALE: Activities may be completed with or without assistive devices. 5-Sjcfgoftoy-hmjbtxk completes the activity by him/herself with no assistance from a helper. 5-Set-up or Clean-up Assistance-helper sets up or cleans up; patient completes activity. [place] assists only prior to or following the activity. 4-Supervision or Touching Assistance-helper provides verbal cues and/or touching/steadying and/or contact guard assistance as patient completes activity. Assistance may be provided throughout the activity or intermittently. 3-Partial/Moderate Assistance-helper does LESS THAN HALF the effort. [place] lifts, holds or supports trunk or limbs, but provides less than half the effort. 2-Substantial/Maximal Assistance-helper does MORE THAN HALF the effort. [place] lifts or holds trunk or limbs and provides more than half the effort. 9-Vzbeeopci-sululd does ALL the effort. Patient does none of the effort to complete the activity. Or, the assistance of 2 or more helpers is required for the patient to complete the activity. If activity was not attempted, code reason: 7-Patient Refused. 9-Not Applicable-not attempted and the patient did not perform the activity before the current illness, exacerbation or injury. 10-Not Attempted due to Environmental Limitations-(lack of equipment, weather restraints, etc.). 88-Not Attempted due to Medical Conditions or Safety Concerns. Sit to Stand (QC): 3 Gait Training Does the Patient Walk?: Yes Distance: 100' x2, 80' x2 Walk 10 feet (QC): 3 Walk 50 ft with 2 Turns(QC): 3 Gait Persons Needed: 1 Gait Assistive Device: FWW Pt extremely unsteady throughout gait. Pt has accelerated pace, shuffling gait and tends to scissor with turns. VC given for slower pace and to not cross legs. With slower pace, pt more steady during amb. Wheelchair Training Does the Pt Use a Wheelchair?: No Exercises Seated Therapy Exercises: Sit to stand, Long arc quads Seated Reps: 10 Standing: Hip Abduction, Marching Standing Reps: 10 Treatments Co-treat 8:00- 9:00: OT focused on bathing, dressing, and UE strengthening/positioning. PT focused on mobility, balance, and LE streng thening/positioning. Pt completes bed bath while sitting EOB, pt requires Nafisa to hold balance when bathing and dressing LE. Sit to stand to clean bottom and don pants, Nafisa/CGA for steadiness. Pt then amb to therapy gym 100' x2. During gait/standing, pt c/o dizziness, subsides with seated/supine rest. Once in gym, pt completes Heath Balance test, scoring 17/56. Pt unable to complete: picking up object from floor, turning 360', alternate foot on step, tandem stance, and standing on one leg. Pt requires Min/ModA for all dynamic standing activity, and CGA for most static standing. Post Heath test, OT exits tx. 9:00-9:15: Pt completes standing ex, requiring rest breaks between each d/t dizziness. Pt completes seated ex, then amb back to room w/ one seated rest break. Pt returns to bed in room and begins to eat breakfast. Pt remains in bed with all needs met, call light in hand. Assessment Current Status: Fair Progress Pt c/o dizziness with prolonged standing/amb, subsides with seated/supine breaks. Pt requires frequent rest breaks during tx. Pt completed Heath Balance test, scoring 17/56 with rest breaks between each item d/t dizziness. PT Residential Goals Residential Goals PT Residential Goals Time Frame: Jul 18, 2021 Roll Left & Right (QC): 5 Sit to Lying (QC): 5 Lying-Sitting on Side/Bed(QC): 5 Sit to Stand (QC): 5 Chair/Kea-dr-Hglmo Xfer(QC): 5 Toilet Transfer (QC): 5 Car Transfer (QC): 55 Does the Patient Walk: Yes Walk 10 feet (QC): 5 Walk 50ft with 2 Turns (QC): 5 Walk 150 ft (QC): 5 Walking 10ft on Uneven Surface: 5 1 Step (curb) (QC): 5 4 Steps (QC): 5 12 Steps (QC): 5 Picking up an Object (QC): 5 Does the Pt use WC or Scooter?: No Wheel 50 feet with 2 turns (QC: 9 Wheel 150 feet: 9 PT Plan Treatment/Plan Treatment Plan: Continue Plan of Care Treatment Plan: Bed Mobility, Concurrent Therapy, Education, Functional Activity Navya, Functional Strength, Group Therapy, Gait, Safety, Therapeutic Exercise, Transfers Treatment Duration: Jul 18, 2021 Frequency: At least 5 of 7 days/Wk (IRF) Estimated Hrs Per Day: 1.5 hours per day Patient and/or Family Agrees t: Yes Time/GCodes Time In: 800 Time Out: 915 Total Billed Treatment Time: 75 Total Billed Treatment 1, NM x2, FA x2, DEA BUSTILLOS OPAL POLISHER Jul 06, 2021 09:13
--- NOTE | 2021-07-06 10:23 | ST Cognitive Linguistic Eval ---
Speech Evaluation-General Medical Diagnosis CVA Onset Date: Jun 28, 2021 Therapy Diagnosis Therapy Diagnosis: Cognitive-communication Referral Referring Physician: Dr. Springer Medical History Pertinent Medical History: CVA, DM, HTN Reviewed History: Yes Social History Current Living Status: Spouse Speech PLF-Current Status Prior Level of Function [place] . He was working up to the day the CVA occured. Subjective Patient was pleasant and cooperative with the cognitive assessment which was given at bedside. The patient does present with a flat affect. Language Eval: Auditory Comprehends Simple Yes/No Ques: Functional Indent/Objects Multiple Thomas: Functional Ident/Pics in Multiple Thomas: Functional Follows 1-Step Commands: Functional Follows Complex Directions: Functional Follows General Conversations: Functional Objective Cognitive Domain Attention: WNL Memory: WNL Problem Solving: Functional Executive Functions: WNL Visuospatial Skills: WNL Composite Severity Rating: WNL Objective Formal/Standardized Tests [facility] Mental Status ([facility]) Results 28/30, within normal range of function Oral Motor/Speech Production Within Normal Limits Impression Patient is a pleasant 61 y/o male who presents with a flat affect. He was given the SLUMS at bedside with a score of 28/30 obtained. This score is within normal range of function and does not indicate a need for further ST services. Speech Patient Assess Expression of Ideas/Wants: Expression (4) Understanding Verbal Content: Understands (4) Brief Interview-Mental Status: Yes Repetition of Three Words: Three (3) Temporal Orientation: Year: Correct (3) Temporal Orientation: Month: Accurate within 5 days(2) Temporal Orientation: Day: Correct (1) Recall : Wear to say "Sock": Yes, no cue required (2) Recall : Color: Yes, after cueing (1) Recall : Bed: Yes, no cue required (2) Memory/Recall Ability: Current season, Location of own room, That he or she is in a hsp/hsp unit Speech-Plan Patient/Family Goals Patient/Family Goals: Patient plans on returning to his home where he lives with his . Treatment Plan Speech Therapy Treatment Plan: Discontinue ST Treatment Duration: Jul 06, 2021 Frequency: 1 time per week Estimated Hrs Per Day: Other Rehab Potential: Good Barriers to Learning: None identified with cognitive-communication Pt/Family Agrees to Plan: Yes Safety Risks/Education Teaching Recipient: Patient Teaching Methods: Discussion Response to Teaching: Verbalize Understanding Education Topics Provided: Safety within his room, communication of wants/needs Time Speech Therapy Time In: 10:00 Speech Therapy Time Out: 10:30 Total Billed Time: 30 Billed Treatment Time 1, MARÍA ELENA BRADEN B[address] ST Jul 06, 2021 10:22
--- NOTE | 2021-07-06 10:32 | PM&R Progress Note ---
Subjective HPI/CC On Admission Date Seen by Provider: Jul 06, 2021 Time Seen by Provider: 10:30 Subjective/Events-last exam 07/06/2021: Pt doing okay Enema was done yesterday Laxatives will be given No dizziness if he lays in bed BP 180s so initiated Norvasc of 5mg twice daily and changed Hydralazine to 50 TID and Clonidine TID 07/05/2021: Patient doing well No concerns Bowel evacuation in process Maintained on laxatives No pain is reported We will start an IV iron infusion and vitamin B12 07/04/2021: Patient settling in well No BM yet only a few things that he is passed that are hard Continue on laxatives Creatinine 4.0 Hemoglobin 7.4 which is chronic No signs of bleeding Check meds and labs Therapy working with him Review of Systems General: Fatigue, Malaise Gastrointestinal: Constipation Neurological: Weakness, Incoordination Objective Exam Vital Signs Vital Signs Date Time Temp Pulse Resp B/P (MAP) Pulse Ox O2 Delivery O2 Flow Rate FiO2 07/06/21 20:15 97 Room Air 07/06/21 19:47 37.0 76 20 174/68 (103) Capillary Refill : General Appearance: No Apparent Distress, WD/WN, Chronically ill HEENT: PERRL/EOMI, Normal ENT Inspection, Pharynx Normal Neck: Full Range of Motion, Normal Inspection, Non Tender, Supple, Carotid Bruit Respiratory: Chest Non Tender, Lungs Clear, Normal Breath Sounds, No Accessory Muscle Use, No Respiratory Distress Cardiovascular: Regular Rate, Rhythm, No Edema, No Gallop, No JVD, No Murmur, Normal Peripheral Pulses Gastrointestinal: Normal Bowel Sounds, No Organomegaly, No Pulsatile Mass, Non Tender, Soft Back: Normal Inspection, No CVA Tenderness, No Vertebral Tenderness Extremity: Normal Capillary Refill, Normal Inspection, Normal Range of Motion, Non Tender, No Calf Tenderness, No Pedal Edema Neurologic/Psychiatric: Alert, Oriented x3, No Motor/Sensory Deficits, sewing techniques demonstrator II- XII Norm as Tested, Abnormal Gait, Depressed Affect, Motor Weakness (generalized 3/5) Skin: Normal Color, Warm/Dry Lymphatic: No Adenopathy Results/Procedures Lab Patient resulted labs reviewed. FIM Transfers Therapy Code Descriptions/Definitions Functional [place] Measure: 0=Not Assessed/NA 4=Minimal Assistance 1=Total Assistance 5=Supervision or Setup 2=Maximal Assistance 6=Modified [place] 3=Moderate Assistance 7=Complete IndependenceSCALE: Activities may be completed with or without assistive devices. 4-Xwzyssyfkx-knhnnrd completes the activity by him/herself with no assistance from a helper. 5-Set-up or Clean-up Assistance-helper sets up or cleans up; patient completes activity. [employer] assists only prior to or following the activity. 4-Supervision or Touching Assistance-helper provides verbal cues and/or touching/steadying and/or contact guard assistance as patient completes activity. Assistance may be provided throughout the activity or intermittently. 3-Partial/Moderate Assistance-helper does LESS THAN HALF the effort. [employer] lifts, holds or supports trunk or limbs, but provides less than half the effort. 2-Substantial/Maximal Assistance-helper does MORE THAN HALF the effort. [employer] lifts or holds trunk or limbs and provides more than half the effort. 2-Soxlexhnu-lyxpru does ALL the effort. Patient does none of the effort to complete the activity. Or, the assistance of 2 or more helpers is required for the patient to complete the activity. If activity was not attempted, code reason: 7-Patient Refused. 9-Not Applicable-not attempted and the patient did not perform the activity before the current illness, exacerbation or injury. 10-Not Attempted due to Environmental Limitations-(lack of equipment, weather restraints, etc.). 88-Not Attempted due to Medical Conditions or Safety Concerns. Roll Left to Right (QC): 3 Sit to Lying (QC): 3 Sit to Stand (QC): 3 Chair/Wxz-fb-Meptq Xfer(QC): 3 Car Transfer (QC): 2 Gait Training Does the Patient Walk?: Yes Distance: 100' x2, 80' x2 Walk 10 feet (QC): 3 Walk 50 ft with 2 Turns(QC): 3 Walk 150 ft (QC): 88 Walking 10ft/uneven surface-QC: 2 Gait Persons Needed: 1 Gait Assistive Device: FWW Wheelchair Training Does the Pt Use a Wheelchair?: No Wheel 50 ft with 2 turns (QC): 9 Wheel 150 ft (QC): 9 Stair Training #of Steps: 1 1 Step (curb) (QC): 2 4 Steps (QC): 88 12 Steps (QC): 88 Balance Picking up an Object (QC): 1 ADL-Treatment Eating (QC): 6 Oral Hygiene (QC): 7 Shower/Bathe Self (QC): 4 (CGA at times for safety while in shower.) Upper Body Dressing (QC): 4 (CGA while doffing/donning shirt for safety.) Lower Body Dressing (QC): 2 (Max assist overall. Pt. able to thread right LE into underwear and pants while seated, with min assist for balance. OT assisted to thread other leg, and then donned over hips while in stance. Pt. attempted to don over hips, but became unstable on feet.) On/Off Footwear (QC): 2 (OT donned pt's socks and slippers because he states that his spouse always does this for him at home. Pt. states that he can, but it is difficult. Pt. 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
--- NOTE | 2021-07-06 14:09 | Occupational Ther Daily Note ---
OT Current Status-Daily Note Subjective Pt alert, laying in bed when OT entered. Pt agreed to therapy. No c/o pain reported. Mental Status/Objective Patient Orientation: Person, Place, Time, Situation ADL-Treatment Therapy Code Descriptions/Definitions Functional [place] Measure: 0=Not Assessed/NA 4=Minimal Assistance 1=Total Assistance 5=Supervision or Setup 2=Maximal Assistance 6=Modified [place] 3=Moderate Assistance 7=Complete IndependenceSCALE: Activities may be completed with or without assistive devices. 2-Bfxwtelkzo-ekewywj completes the activity by him/herself with no assistance from a helper. 5-Set-up or Clean-up Assistance-helper sets up or cleans up; patient completes activity. [place] assists only prior to or following the activity. 4-Supervision or Touching Assistance-helper provides verbal cues and/or to uching/steadying and/or contact guard assistance as patient completes activity. Assistance may be provided throughout the activity or intermittently. 3-Partial/Moderate Assistance-helper does LESS THAN HALF the effort. [place] lifts, holds or supports trunk or limbs, but provides less than half the effort. 2-Substantial/Maximal Assistance-helper does MORE THAN HALF the effort. [place] lifts or holds trunk or limbs and provides more than half the effort. 1-Xqketfruj-sbyghd does ALL the effort. Patient does none of the effort to complete the activity. Or, the assistance of 2 or more helpers is required for the patient to complete the activity. If activity was not attempted, code reason: 7-Patient Refused. 9-Not Applicable-not attempted and the patient did not perform the activity before the current illness, exacerbation or injury. 10-Not Attempted due to Environmental Limitations-(lack of equipment, weather restraints, etc.). 88-Not Attempted due to Medical Conditions or Safety Concerns. Other Treatment Pt transferred from supine to EOB. While seated at EOB, pt participated in dynamic sitting/standing task of reaching BUE across ALEKSANDR to grasp cone from therapist for improved safety completing ADLs such as dressing/bathing. Pt tole rated task well when sitting. Pt required vc to slow down on task and focus on where the cone was before reaching. Noted visual perception deficit when reaching for cones on L side using RUE. Pt required CGA when completing task when standing due to decreased dynamic standing balance. While seated at EOB, pt particicpated in FM task of crossing midline to grasp pegs and place them into peg board to increase FM skills for opening/closing fasteners and visual perception skills. When asked to pick out purple peg from box, pt grasped a blue peg. When given 2 options of pegs pt grasped correct color 5/5. Pt transferred from EOB to supine. After session, pt laying in bed. Call light in reach and all needs met. Education OT Patient Education: Correct positioning, Purpose of tx/functional activities Teaching Recipient: Patient Teaching Methods: Demonstration, Discussion Response to Teaching: Verbalize Understanding, Return Demonstration OT Short Term Goals Short Term Goals Time Frame: Jul 11, 2021 Eatin Oral hygiene: 4 Toileting hygiene: 4 Shower/bathe self: 4 Upper body dressin Lower body dressin Putting on/taking off footwear: 3 OT Halfway Goals Halfway Goals Time Frame: Jul 18, 2021 Eating (QC): 6 Oral Hygiene (QC): 6 Toileting Hygiene (QC): 6 Shower/Bathe Self (QC): 5 Upper Body Dressing (QC): 6 Lower Body Dressing (QC): 5 On/Off Footwear (QC): 6 Additional Goals: 1-Demonstrate ADL Tasks, 2-Verbalize Understanding, 3- ImproveStrength/[place] 1=Demonstrate adherence to instructed precautions during ADL tasks. 2=Patient will verbalize/demonstrate understanding of assistive devices/modifications for ADL. 3=Patient will improve strength/tolerance for activity to enable patient to perform ADL's. OT Education/Plan Problem List/Assessment Assessment: Decreased Activ Tolerance, Decreased UE Strength, Impaired Coordination, Impaired Funct Balance, Impaired Self-Care Skills Discharge Recommendations Plan/Recommendations: Continue POC Treatment Plan/Plan of Care Patient would benefit from OT for education, treatment and training to promote independence in ADL's, mobility, safety and/or upper extremity function for ADL's. Plan of Care: ADL Retraining, Functional Mobility, Group Exercise/Act as Ind, UE Funct Exercise/Act Treatment Duration: Jul 18, 2021 Frequency: At least 5 of 7 days/Wk (IRF) Estimated Hrs Per Day: 1.5 hours per day Agreement: Yes Rehab Potential: Good Time/GCodes Start Time: 13:15 Stop Time: 13:30 Total Time Billed (hr/min): 15 Billed Treatment Time 1 visit- FA 1 (15 mins) RANDEE,CHAVEZ MONKEY KEEPER Jul 06, 2021 14:09
[2021-07-06 19:47] VITALS: BP 174/68
[2021-07-06] MEDS: MIRTAZAPINE 15 MG (REMERON) TAB PO SCH (21:31)
[2021-07-06] MEDS: MELATONIN 3 MG TABLET PO SCH (21:31)
[2021-07-07] MEDS: inSUlin ASPART (NovoLOG) 1 UNIT/0.01 ML (CHARGE PER UNIT) SC SCH ×4 (05:11→21:12)
[2021-07-07] MEDS: CYANOCOBALAMIN 1,000 MCG (VITAMIN B-12) TABLET PO SCH (06:43)
[2021-07-07 06:52] LABS: ALBUMIN 2.7 GM/DL (3.2-4.5)
[2021-07-07 06:53] LABS: POTASSIUM 5.7 MMOL/L (3.6-5.0)
[2021-07-07 06:54] LABS: CALCIUM 8.4 MG/DL (8.5-10.1)
[2021-07-07 06:55] LABS: TOTAL PROTEIN 5.7 GM/DL (6.4-8.2)
[2021-07-07 06:57] LABS: BILIRUBIN,TOTAL 0.4 MG/DL (0.1-1.0)
[2021-07-07 06:59] LABS: CREATININE SERUM 3.27 MG/DL (0.60-1.30)
--- NOTE | 2021-07-07 07:22 | PM&R Progress Note ---
Subjective HPI/CC On Admission Date Seen by Provider: Jul 07, 2021 Time Seen by Provider: 09:30 Subjective/Events-last exam 07/07/2021: Patient doing well Blood pressure very resistant so adding meds Consulting Dr. Cheng for iron deficiency and Procrit request Starting sodium bicarb Starting Kayexalate Had complete bowel evacuation this morning 07/06/2021: Pt doing okay Enema was done yesterday Laxatives will be given No dizziness if he lays in bed BP 180s so initiated Norvasc of 5mg twice daily and changed Hydralazine to 50 TID and Clonidine TID 07/05/2021: Patient doing well No concerns Bowel evacuation in process Maintained on laxatives No pain is reported We will start an IV iron infusion and vitamin B12 07/04/2021: Patient settling in well No BM yet only a few things that he is passed that are hard Continue on laxatives Creatinine 4.0 Hemoglobin 7.4 which is chronic No signs of bleeding Check meds and labs Therapy working with him Review of Systems Neurological: Weakness, Incoordination Objective Exam Vital Signs Vital Signs Date Time Temp Pulse Resp B/P (MAP) Pulse Ox O2 Delivery O2 Flow Rate FiO2 07/07/21 21:04 97 Room Air 07/07/21 19:41 37.0 75 18 177/81 (113) Capillary Refill : General Appearance: No Apparent Distress, WD/WN, Chronically ill HEENT: PERRL/EOMI, Normal ENT Inspection, Pharynx Normal Neck: Full Range of Motion, Normal Inspection, Non Tender, Supple, Carotid Bruit Respiratory: Chest Non Tender, Lungs Clear, Normal Breath Sounds, No Accessory Muscle Use, No Respiratory Distress Cardiovascular: Regular Rate, Rhythm, No Edema, No Gallop, No JVD, No Murmur, Normal Peripheral Pulses Gastrointestinal: Normal Bowel Sounds, No Organomegaly, No Pulsatile Mass, Non Tender, Soft Back: Normal Inspection, No CVA Tenderness, No Vertebral Tenderness Extremity: Normal Capillary Refill, Normal Inspection, Normal Range of Motion, Non Tender, No Calf Tenderness, No Pedal Edema Neurologic/Psychiatric: Alert, Oriented x3, No Motor/Sensory Deficits, map editor II- XII Norm as Tested, Abnormal Gait, Depressed Affect, Motor Weakness (generalized 3/5) Skin: Normal Color, Warm/Dry Lymphatic: No Adenopathy Results/Procedures Lab Laboratory Tests 07/07/21 06:35 Patient resulted labs reviewed. FIM Transfers Therapy Code Descriptions/Definitions Functional [place] Measure: 0=Not Assessed/NA 4=Minimal Assistance 1=Total Assistance 5=Supervision or Setup 2=Maximal Assistance 6=Modified [place] 3=Moderate Assistance 7=Complete IndependenceSCALE: Activities may be completed with or without assistive devices. 9-Yptdelvrua-syfibzl completes the activity by him/herself with no assistance from a helper. 5-Set-up or Clean-up Assistance-helper sets up or cleans up; patient completes activity. [place] assists only prior to or following the activity. 4-Supervision or Touching Assistance-helper provides verbal cues and/or touching/steadying and/or contact guard assistance as patient completes activity. Assistance may be provided throughout the activity or intermittently. 3-Partial/Moderate Assistance-helper does LESS THAN HALF the effort. [place] lifts, holds or supports trunk or limbs, but provides less than half the effort. 2-Substantial/Maximal Assistance-helper does MORE THAN HALF the effort. [place] lifts or holds trunk or limbs and provides more than half the effort. 6-Lscchdbhi-zuuqxx does ALL the effort. Patient does none of the effort to complete the activity. Or, the assistance of 2 or more helpers is required for the patient to complete the activity. If activity was not attempted, code reason: 7-Patient Refused. 9-Not Applicable-not attempted and the patient did not perform the activity before the current illness, exacerbation or injury. 10-Not Attempted due to Environmental Limitations-(lack of equipment, weather restraints, etc.). 88-Not Attempted due to Medical Conditions or Safety Concerns. Roll Left to Right (QC): 3 Sit to Lying (QC): 3 Sit to Stand (QC): 3 Chair/Gho-oi-Uhjym Xfer(QC): 3 Car Transfer (QC): 2 Gait Training Does the Patient Walk?: Yes Distance: 100' x2, 80' x2 Walk 10 feet (QC): 3 Walk 50 ft with 2 Turns(QC): 3 Walk 150 ft (QC): 88 Walking 10ft/uneven surface-QC: 2 Gait Persons Needed: 1 Gait Assistive Device: FWW Wheelchair Training Does the Pt Use a Wheelchair?: No Wheel 50 ft with 2 turns (QC): 9 Wheel 150 ft (QC): 9 Stair Training #of Steps: 1 1 Step (curb) (QC): 2 4 Steps (QC): 88 12 Steps (QC): 88 Balance Picking up an Object (QC): 1 ADL-Treatment Eating (QC): 6 Oral Hygiene (QC): 7 Shower/Bathe Self (QC): 4 (CGA at times for safety while in shower.) Upper Body Dressing (QC): 4 (CGA while doffing/donning shirt for safety.) Lower Body Dressing (QC): 2 (Max assist overall. Pt. able to thread right LE into underwear and pants while seated, with min assist for balance. OT assisted to thread other leg, and then donned over hips while in stance. Pt. attempted to don over hips, but became unstable on feet.) On/Off Footwear (QC): 2 (OT donned pt's socks and slippers because he states that his spouse always does this for him at home. Pt. states that he can, but it is difficult. Pt. 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 MACK for Procrit request (1) CVA (cerebral vascular accident) MICHELLE ABBASI DO Jul 07, 2021 07:22
[2021-07-07 07:37] VITALS: BP 181/83
[2021-07-07] MEDS: IRON SUCROSE 200 MG/10 ML (VENOFER) VIAL IV SCH (08:29)
[2021-07-07] MEDS: LOSARTAN 50 MG (COZAAR) TAB PO SCH (08:29)
[2021-07-07] MEDS: cloNIDine 0.1 MG (CATAPRES) TAB PO SCH ×3 (08:30→21:02)
[2021-07-07] MEDS: amLODIPine 5 MG (NORVASC) TAB PO SCH ×2 (08:30→21:03)
[2021-07-07] MEDS: DOCUSATE SODIUM 100 MG (COLACE) CAP PO SCH ×2 (08:30→21:11)
[2021-07-07] MEDS: ASPIRIN E.C. 325 MG (ECOTRIN) TABLET PO SCH (08:30)
[2021-07-07] MEDS: SENNA W/DOCUSATE (SENOKOT S) TABLET PO SCH ×2 (08:30→21:12)
[2021-07-07] MEDS: PANTOPRAZOLE 40 MG (PROTONIX) TAB PO SCH (08:30)
[2021-07-07] MEDS: polyethylene glycoL POWDER 17 GM (MIRALAX) PACK PO SCH ×2 (08:30→21:11)
[2021-07-07] MEDS: MECLIZINE 25 MG (ANTIVERT) TAB PO SCH ×3 (08:30→21:02)
[2021-07-07] MEDS: hydrALAZINE (APRESOLINE) 25 MG TAB PO SCH ×3 (08:30→21:01)
[2021-07-07] MEDS ORDERED: SOD POLYSTERENE 15 GM/60 ML (KAYEXALATE) UNIT DOSE PO ONE (09:00)
--- NOTE | 2021-07-07 09:20 | Occupational Ther Daily Note ---
OT Current Status-Daily Note Subjective Pt denies pain. complains only of dizziness but states it is better than previous date. Appearance Pt left sitting in chair, all needs within reach at end of session. Mental Status/Objective Attachments: IV ADL-Treatment Therapy Code Descriptions/Definitions Functional [place] Measure: 0=Not Assessed/NA 4=Minimal Assistance 1=Total Assistance 5=Supervision or Setup 2=Maximal Assistance 6=Modified [place] 3=Moderate Assistance 7=Complete IndependenceSCALE: Activities may be completed with or without assistive devices. 1-Jccfqvzhkl-iwnyrpf completes the activity by him/herself with no assistance from a helper. 5-Set-up or Clean-up Assistance-helper sets up or cleans up; patient completes activity. [place] assists only prior to or following the activity. 4-Supervision or Touching Assistance-helper provides verbal cues and/or touching/steadying and/or contact guard assistance as patient completes activity. Assistance may be provided throughout the activity or intermittently. 3-Partial/Moderate Assistance-helper does LESS THAN HALF the effort. [place] lifts, holds or supports trunk or limbs, but provides less than half the effort. 2-Substantial/Maximal Assistance-helper does MORE THAN HALF the effort. [place] lifts or holds trunk or limbs and provides more than half the effort. 8-Bgbjmudwt-ngypul does ALL the effort. Patient does none of the effort to complete the activity. Or, the assistance of 2 or more helpers is required for the patient to complete the activity. If activity was not attempted, code reason: 7-Patient Refused. 9-Not Applicable-not attempted and the patient did not perform the activity before the current illness, exacerbation or injury. 10-Not Attempted due to Environmental Limitations-(lack of equipment, weather restraints, etc.). 88-Not Attempted due to Medical Conditions or Safety Concerns. Oral Hygiene (QC): 3 Bathing Location: L Arm, R Arm, L Upper Leg, R Upper Leg, L Lower Leg (including foot), R Lower Leg (including foot), Chest, Abdomen, Buttocks, Perineal Area Shower/Bathe Self (QC): 3 Upper Body Dressing (QC): 4 Lower Body Dressing (QC): 3 On/Off Footwear: 4 Toileting Hygiene (QC): 3 Toilet Transfer (QC): 3 Co-treat with PT ([id number]) due to decreased activity tolerance, poor balance, impulsivity and increased fall risk . PT focusing on gait, transfers, and balance while OT focuses on functional balance, ADLs, safety and coordination. All transfers performed with Min A. Pt is very impulsive and requires max cues for safety and correct positioning of hands. Pt able to follow cues but with poor carryover throughout treatment. When cued to slow speed, balance improves. Very poor safety with walker management as pt has tendency to lift walker off floor and push too far to left. Pt exhibits listing left and scissoring with gait. Poor coordination/proprioception demonstrated during functional tasks. With toileting, Pt often bumping head into wall when attempting juan care. cues for safety. Min a for thoroughness. Shower performed; majority completed in sitting. Pt stood only briefly to wash juan area/buttocks with min a for balance. Unsteadiness increases with zero UE support. Cues needed for sequencing and to initiate use of soap throughout shower. Pt able to reach all body parts without physical assist. Poor coordination noted when threading LE's into LB clothing. Cues for compensatory strategies such as threading R first and using cross over method. Ataxic movements observed throughout. Cues x2 for safety and to initiate clothing management prior to ambulating. Min A x2 for safety as pt stands to pull clothing over hips with zero UE support. Oral care and hair combing performed standing at the sink. Min-mod a for balance. Cues included: widening ALEKSANDR, scanning, initiating, and sequencing through steps. Pt often over/under shooting. Other Treatment When ambulating to gym, pt requires cues to reduce scissoring, slow speed, and improve walker management. Pt instructed to use line on floor as visual feedback to keep feet from scissoring. In gym, pt participated in dynamic standing activity with focus on improving balance, coordination, sequencing, propr ioception, and scanning. When erasing letters (placed randomly on white board) pt had difficult time completing in alphabetical order and often would speed through task. He was able to verbalize alphabet correctly before activity but unable to sequence during activity. Improved performance when using numbers (numerically) than letters. Several cues needed for scanning, more in upper right quadrant and lower left quadrant. On second attempt, 2# wrist weight added to RUE to aid in proprioception feedback. Slight improvement exhibited post addition. Pt completed activity with 0-1 UE support. Unable to tolerate zero UE support for long periods and often will use wall for support. Several standing and sitting rest breaks needed throughout activity. Education OT Patient Education: Correct positioning, Disease process, Energy conservation, Modified ADL techniques, Progress toward Goal/Update tx plan, Purpose of tx/functional activities, Reviewed precautions, Rehab process, Safety issues, Transfer techniques Teaching Recipient: Patient Teaching Methods: Demonstration, Discussion Response to Teaching: Verbalize Understanding, Return Demonstration, Reinforcement Needed OT Short Term Goals Short Term Goals Time Frame: Jul 11, 2021 Eatin Oral hygiene: 4 Toileting hygiene: 4 Shower/bathe self: 4 Upper body dressin Lower body dressin Putting on/taking off footwear: 3 OT Tactical Deception Plans Officer Goals Tactical Deception Plans Officer Goals Time Frame: Jul 18, 2021 Eating (QC): 6 Oral Hygiene (QC): 6 Toileting Hygiene (QC): 6 Shower/Bathe Self (QC): 5 Upper Body Dressing (QC): 6 Lower Body Dressing (QC): 5 On/Off Footwear (QC): 6 Additional Goals: 1-Demonstrate ADL Tasks, 2-Verbalize Understanding, 3- ImproveStrength/Navya 1=Demonstrate adherence to instructed precautions during ADL tasks. 2=Patient will verbalize/demonstrate understanding of assistive devices/modifications for ADL. 3=Patient will improve strength/tolerance for activity to enable patient to perform ADL's. OT Education/Plan Problem List/Assessment Assessment: Decreased Activ Tolerance, Decreased Safety Aware, Decreased UE Strength, Impaired Cognition, Impaired Coordination, Impaired Funct Balance, Impaired I ADL's, Impaired Self-Care Skills Discharge Recommendations Plan/Recommendations: Continue POC Equpiment Recommendations-D/C: Rails on Tub/Shower, Bath Chair Treatment Plan/Plan of Care Treatment,Training & Education: Yes Patient would benefit from OT for education, treatment and training to promote independence in ADL's, mobility, safety and/or upper extremity function for ADL's. Plan of Care: ADL Retraining, Functional Mobility, Group Exercise/Act as Ind, UE Funct Exercise/Act Treatment Duration: Jul 18, 2021 Frequency: At least 5 of 7 days/Wk (IRF) Estimated Hrs Per Day: 1.5 hours per day Agreement: Yes Rehab Potential: Fair Time/GCodes Start Time: 08:00 Stop Time: 09:30 Total Time Billed (hr/min): 90 Billed Treatment Time 1 visit ADL x4 (55 min) FA x2 (35 min) Co-treat with PT for 90 min Rosie Rocha OT Jul 07, 2021 09:20
--- NOTE | 2021-07-07 09:26 | Physical Therapy Daily Note ---
PT Daily Note-Current Subjective Pt in bed upon arrival and agrees to co-treat. Use of 2 skilled clinicians d/t pt poor balance, coordination, low activity tolerance, and safety. Pt states he is dizzy periodically during the day, says nothing improves it but does worsen when laying on R side. Mental Status Patient Orientation: Person, Place, Situation Transfers SCALE: Activities may be completed with or without assistive devices. 1-Iqxfwsweig-qyhswqr completes the activity by him/herself with no assistance from a helper. 5-Set-up or Clean-up Assistance-helper sets up or cleans up; patient completes activity. [place] assists only prior to or following the activity. 4-Supervision or Touching Assistance-helper provides verbal cues and/or touching/steadying and/or contact guard assistance as patient completes activity. Assistance may be provided throughout the activity or intermittently. 3-Partial/Moderate Assistance-helper does LESS THAN HALF the effort. [place] lifts, holds or supports trunk or limbs, but provides less than half the effort. 2-Substantial/Maximal Assistance-helper does MORE THAN HALF the effort. [place] lifts or holds trunk or limbs and provides more than half the effort. 0-Uvkfptskg-upwril does ALL the effort. Patient does none of the effort to complete the activity. Or, the assistance of 2 or more helpers is required for the patient to complete the activity. If activity was not attempted, code reason: 7-Patient Refused. 9-Not Applicable-not attempted and the patient did not perform the activity before the current illness, exacerbation or injury. 10-Not Attempted due to Environmental Limitations-(lack of equipment, weather restraints, etc.). 88-Not Attempted due to Medical Conditions or Safety Concerns. Roll Left & Right (QC): 3 Lying to Sitting/Side of Bed(Q: 3 Sit to Stand (QC): 3 Chair/Ewy-lw-Ejodl Xfer(QC): 3 CGA/Nafisa for steadiness d/t poor balance Gait Training Does the Patient Walk?: Yes Distance: 100', 75' Walk 10 feet (QC): 3 Walk 50 ft with 2 Turns(QC): 3 Gait Persons Needed: 2 Gait Assistive Device: FWW Pt steps w/ R LE closer to midline, VC for wider ALEKSANDR. With slower pace, pt is more steady Treatments Pt completes bed mobility, and sits EOB, then sit to stand to bathroom. pt request to use toilet prior to shower to have BM. Pt able to doff/don clothes and needs some A for cleaning. Pt transfers to shower (see OT note). Pt holds standing balance Min/ModA w/ torso lean on sink to perform ADLs. Pt then amb to therapy gym to complete dynamic standing balance activities with coordination training on R UE. Pt uses L UE for support and Nafisa for 15 minutes, no UE support and Nafisa for 10 minutes. Pt then amb back to room and returns to recliner. Pt remains in recliner with all needs met, call light in hand. OT focused on bathing, dressing, and UE strengthening/coordination. PT focused on functional mobility, transfers, and LE strengthening/coordination. Assessment Current Status: Fair Progress Pt balance improved from tx yesterday. VC for slower gait w/ wider ALEKSANDR. Pt requires frequent rest breaks during tx and c/o dizziness PT Residential Goals Residential Goals PT Hand Tacker Goals Time Frame: Jul 18, 2021 Roll Left & Right (QC): 5 Sit to Lying (QC): 5 Lying-Sitting on Side/Bed(QC): 5 Sit to Stand (QC): 5 Chair/Pvm-ta-Vpjlj Xfer(QC): 5 Toilet Transfer (QC): 5 Car Transfer (QC): 55 Does the Patient Walk: Yes Walk 10 feet (QC): 5 Walk 50ft with 2 Turns (QC): 5 Walk 150 ft (QC): 5 Walking 10ft on Uneven Surface: 5 1 Step (curb) (QC): 5 4 Steps (QC): 5 12 Steps (QC): 5 Picking up an Object (QC): 5 Does the Pt use WC or Scooter?: No Wheel 50 feet with 2 turns (QC: 9 Wheel 150 feet: 9 PT Plan Treatment/Plan Treatment Plan: Continue Plan of Care Treatment Plan: Bed Mobility, Concurrent Therapy, Education, Functional Activity Navya, Functional Strength, Group Therapy, Gait, Safety, Therapeutic Exercise, Transfers Treatment Duration: Jul 18, 2021 Frequency: At least 5 of 7 days/Wk (IRF) Estimated Hrs Per Day: 1.5 hours per day Patient and/or Family Agrees t: Yes Time/GCodes Time In: 800 Time Out: 930 Total Billed Treatment Time: 90 Total Billed Treatment 1, FA x4, NM x2 RODRIGUEZ,[facility] Jul 07, 2021 09:26
--- NOTE | 2021-07-07 09:56 | Oncology Consultation ---
Visit Information Visit Information Date of Admission Jul 03, 2021 at 18:12 Attending Physician Josy Springer DO Admitting Physician Ginger,Local Physician Chief Complaint Anemia and acute on chronic renal failure. Possible starting procrit treatment for anemia Interval History Mr. Zavala is a 61 year old white man in rehab here after a CVA and acute on chronic renal failure. Dr. Springer called to see if patient would be a candidate for procrit injection for his normocytic anemia Hb 7.4. Cr 3.4, GFR 19. Pt had CKD due to HTN, uncontrolled DM. I consulted the patient on: 07/07/21 09:51 Time Seen by Provider: 10:00 Review of Systems Constitutional: see HPI Health Status Allergies Coded Allergies: diltiazem (Verified Allergy, Unknown, 07/03/21) Home Medications Amlodipine Besylate (Amlodipine Besylate) 5 Mg Tablet, 5 MG PO HS, (Reported) Atorvastatin Calcium (Atorvastatin Calcium) 20 Mg Tablet, 20 MG PO HS, (Reported) Clonidine HCl (Clonidine HCl) 0.1 Mg Tablet, 0.1 MG PO BID, (Reported) Ergocalciferol (Vitamin D2) (Vitamin D2) 1,250 Mcg Capsule, 1,250 MCG PO WEEKLY, (Reported) Insulin Glargine,Hum.rec.anlog (Basaglar Kwikpen U-100) 100 Unit/1 Ml Insuln.pen, 10 UNIT SQ HS, (Reported) Loratadine (Loratadine) 10 Mg Tablet, 10 MG PO DAILY PRN for ALLERGY SYMPTOMS, (Reported) Losartan Potassium (Losartan Potassium) 50 Mg Tablet, 50 MG PO DAILY, (Reported) Montelukast Sodium (Montelukast Sodium) 10 Mg Tablet, 10 MG PO HS, (Reported) GDW-Nwytkk-Stpvzf Hx Patient Social History Marrital Status: Employed/Student: employed ([employer]) Smoking Status: Never a Smoker Alcohol Use?: Yes Have you traveled recently?: No Physical Exam Vital Signs Vital Signs - First Documented 07/09/21 08:00 Temp 36.1 Pulse 89 Resp 20 B/P (MAP) 167/74 (105) Pulse Ox 97 O2 Delivery Room Air Capillary Refill : Height, Weight, BMI Height: '" Weight: lbs. oz. kg; 29.12 BMI Method: General Appearance: No Apparent Distress Respiratory: No Accessory Muscle Use, No Respiratory Distress Data Review Labs Laboratory Tests 07/15/21 06:36 Laboratory Tests 07/12/21 15:33: Glucometer 214H 07/12/21 20:49: Glucometer 184H 07/13/21 05:34: White Blood Count 12.2H, Red Blood Count 2.55L, Hemoglobin 7.6L, Hematocrit 23L, Platelet Count 417H, Neutrophils # (Auto) 8.5H, Eosinophils # (Auto) 0.4H, Potassium Level 5.7H, Chloride Level 108H, Carbon Dioxide Level 18L, Blood Urea Nitrogen 43H, Creatinine 3.33H, Glucose Level 107H, Calcium Level 7.8L, Total Protein 5.5L, Albumin 2.8L 07/13/21 06:11: 07/13/21 10:51: Glucometer 269H 07/13/21 15:28: Glucometer 180H 07/13/21 20:23: Glucometer 160H 07/14/21 05:36: 07/14/21 10:51: Glucometer 111H 07/14/21 15:37: Glucometer 263H 07/14/21 20:34: Glucometer 230H 07/15/21 05:48: 07/15/21 06:36: Hemoglobin 7.8L, Hematocrit 25L, Potassium Level 5.4H, Chloride Level 111H, Carbon Dioxide Level 18L, Blood Urea Nitrogen 43H, Creatinine 3.23H, Calcium Level 8.3L 07/15/21 10:55: Impression & Plan Impression & Plan IMP: 1. Acute on chronic renal failure, Cr 3.2, GFR 19 and elevated K+ 5.7 2. Normacytic anemia due to #1. Stool occult blood test pending 3. Recent CVA and now on rehab 4. HTN 5. DM Plan: 1. Start long acting EPO aranesp 40mcg q2-4 week. Will give a dose today. 2. 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 3. Monitor CBC weekly. 4. If he needs to get the aranesp at cancer center, please set up follow up appointment with me in 2-4 weeks. Thank you for the consultation. ERMELINDA MACK MD Jul 07, 2021 09:56
[2021-07-07] MEDS ORDERED: DARBEPOETIN 40 MCG/ML (ARANESP) HOSPITAL SC ONE (10:30)
[2021-07-07] MEDS: SODIUM BICARBONATE 650 MG TABLET (NON-FORMULARY) PO SCH ×2 (10:42→21:01)
[2021-07-07] MEDS: doxAzosin 1 MG (CARDURA) TAB PO SCH ×2 (10:42→21:01)
[2021-07-07 19:41] VITALS: BP 177/81
[2021-07-07] MEDS ORDERED: amLODIPine 5 MG (NORVASC) TAB ONE (20:11)
[2021-07-07] MEDS: MIRTAZAPINE 15 MG (REMERON) TAB PO SCH (21:02)
[2021-07-07] MEDS: MELATONIN 3 MG TABLET PO SCH (21:02)
[2021-07-08] MEDS: inSUlin ASPART (NovoLOG) 1 UNIT/0.01 ML (CHARGE PER UNIT) SC SCH ×4 (06:00→20:58)
[2021-07-08] MEDS: CYANOCOBALAMIN 1,000 MCG (VITAMIN B-12) TABLET PO SCH (06:38)
[2021-07-08 07:30] VITALS: BP 171/80
[2021-07-08] MEDS: MECLIZINE 25 MG (ANTIVERT) TAB PO SCH ×3 (07:43→21:20)
[2021-07-08] MEDS: LOSARTAN 50 MG (COZAAR) TAB PO SCH (07:43)
[2021-07-08] MEDS: amLODIPine 5 MG (NORVASC) TAB PO SCH ×2 (07:43→21:21)
[2021-07-08] MEDS: cloNIDine 0.1 MG (CATAPRES) TAB PO SCH ×3 (07:44→21:20)
[2021-07-08] MEDS: doxAzosin 1 MG (CARDURA) TAB PO SCH ×2 (07:44→21:19)
[2021-07-08] MEDS: hydrALAZINE (APRESOLINE) 25 MG TAB PO SCH ×3 (07:47→21:20)
[2021-07-08] MEDS: PANTOPRAZOLE 40 MG (PROTONIX) TAB PO SCH (07:48)
[2021-07-08] MEDS: ASPIRIN E.C. 325 MG (ECOTRIN) TABLET PO SCH (07:48)
[2021-07-08] MEDS: SODIUM BICARBONATE 650 MG TABLET (NON-FORMULARY) PO SCH ×2 (07:48→21:20)
--- NOTE | 2021-07-08 09:25 | Occupational Ther Daily Note ---
OT Current Status-Daily Note Subjective Pt denies pain. Agreeable to co-treat. Appearance Pt left sitting in chair, RN in room. All needs within reach. Mental Status/Objective Attachments: IV ADL-Treatment Therapy Code Descriptions/Definitions Functional [place] Measure: 0=Not Assessed/NA 4=Minimal Assistance 1=Total Assistance 5=Supervision or Setup 2=Maximal Assistance 6=Modified [place] 3=Moderate Assistance 7=Complete IndependenceSCALE: Activities may be completed with or without assistive devices. 7-Mubewsvfwo-gxvmqra completes the activity by him/herself with no assistance from a helper. 5-Set-up or Clean-up Assistance-helper sets up or cleans up; patient completes activity. [place] assists only prior to or following the activity. 4-Supervision or Touching Assistance-helper provides verbal cues and/or touching/steadying and/or contact guard assistance as patient completes activity. Assistance may be provided throughout the activity or intermittently. 3-Partial/Moderate Assistance-helper does LESS THAN HALF the effort. [place] lifts, holds or supports trunk or limbs, but provides less than half the effort. 2-Substantial/Maximal Assistance-helper does MORE THAN HALF the effort. [place] lifts or holds trunk or limbs and provides more than half the effort. 6-Savyhjeyg-iuhqbs does ALL the effort. Patient does none of the effort to complete the activity. Or, the assistance of 2 or more helpers is required for the patient to complete the activity. If activity was not attempted, code reason: 7-Patient Refused. 9-Not Applicable-not attempted and the patient did not perform the activity before the current illness, exacerbation or injury. 10-Not Attempted due to Environmental Limitations-(lack of equipment, weather restraints, etc.). 88-Not Attempted due to Medical Conditions or Safety Concerns. Upper Body Dressing (QC): 4 Lower Body Dressing (QC): 3 (balance assist only) On/Off Footwear: 4 Co-treat with PT (800-930) due to decreased activity tolerance, poor balance, impulsivity and increased fall risk . PT focusing on gait, transfers, and balance while OT focuses on functional balance, vision, ADLs, safety and coordination. Pt supine at therapy arrival. BP: 191/84, asymptomatic. RN informed. Dressing tasks completed seated EOB. Pt with speedy movements and often gets off balanced secondary to this; cues for slowing pace. Pt able to thread LE's into LB clothing without assist but demonstrates increased effort secondary to losing balance. He is able to self recover and does not demonstrate any significant LOB. Min a needed for balance as he stand to pull clothing up to waist. Re-education on pacing, safety, and correct hand placement with all transfers. He stood at sink to brush hair, declined oral care. Pt continues to exhibit over/undershooting and relies heavily and resting trunk against sink. Other Treatment Pt participated in scanning activity throughout unit. Emphasis on improving compensatory scanning strategies, balance, coordination, dexterity/FM control, and endurance. 10 large resistance (yellow, green, red) clothespins placed at different heights around unit. Pt initiated proper scanning methods and often appears to be looking directly at the clothespin, yet misses it all together. Several cues needed for safety including walker management, stepping closer to item to reduce reaching too far out of ALEKSANDR, and object avoidance. Pt often bumping into objects on right side. R side inattention? Field cut? He continues to demonstrate scissoring. 1# weight added to RLE to aid in proproceptive feedback. Post addition, pt demonstrates moderate improvement with step through. Pt then performed standing balloon volleyball. Pt challenged to reduce UE support with keeping L hand on walker only. With fatigue, he begins to become retropulsive. Again, cues for safety, slowing pace, and stepping toward object during activity. Several rest breaks needed throughout task secondary to fatigue. BP checked at end of session. Continues to be hypertensive, 194/82. Rn in room. Education OT Patient Education: Correct positioning, Disease process, Energy conservation, Modified ADL techniques, Progress toward Goal/Update tx plan, Purpose of tx/functional activities, Reviewed precautions, Rehab process, Safety issues, Transfer techniques Teaching Recipient: Patient Teaching Methods: Demonstration Response to Teaching: Verbalize Understanding, Reinforcement Needed OT Short Term Goals Short Term Goals Time Frame: Jul 11, 2021 Eatin Oral hygiene: 4 Toileting hygiene: 4 Shower/bathe self: 4 Upper body dressin Lower body dressin Putting on/taking off footwear: 3 OT Drill Press Set Up Operator Goals Drill Press Set Up Operator Goals Time Frame: Jul 18, 2021 Eating (QC): 6 Oral Hygiene (QC): 6 Toileting Hygiene (QC): 6 Shower/Bathe Self (QC): 5 Upper Body Dressing (QC): 6 Lower Body Dressing (QC): 5 On/Off Footwear (QC): 6 Additional Goals: 1-Demonstrate ADL Tasks, 2-Verbalize Understanding, 3- ImproveStrength/Navya 1=Demonstrate adherence to instructed precautions during ADL tasks. 2=Patient will verbalize/demonstrate understanding of assistive devices/modifications for ADL. 3=Patient will improve strength/tolerance for activity to enable patient to perform ADL's. OT Education/Plan Problem List/Assessment Assessment: Decreased Activ Tolerance, Decreased Safety Aware, Impaired Cognition, Impaired Coordination, Impaired Funct Balance, Impaired I ADL's, Impaired Self-Care Skills Discharge Recommendations Plan/Recommendations: Continue POC Treatment Plan/Plan of Care Treatment,Training & Education: Yes Patient would benefit from OT for education, treatment and training to promote independence in ADL's, mobility, safety and/or upper extremity function for ADL's. Plan of Care: ADL Retraining, Functional Mobility, Group Exercise/Act as Ind, UE Funct Exercise/Act Treatment Duration: Jul 18, 2021 Frequency: At least 5 of 7 days/Wk (IRF) Estimated Hrs Per Day: 1.5 hours per day Agreement: Yes Rehab Potential: Fair Time/GCodes Start Time: 08:00 Stop Time: 09:30 Total Time Billed (hr/min): 90 Billed Treatment Time 1 visit, ADL x2 (30 min) FA x4 (60 min) Rosie Rocha OT Jul 08, 2021 09:25
--- NOTE | 2021-07-08 09:29 | PM&R Progress Note ---
Subjective HPI/CC On Admission Date Seen by Provider: Jul 08, 2021 Time Seen by Provider: 09:00 Subjective/Events-last exam 07/08/2021: Patient doing really well Received erythropoietin yesterday Appreciate Dr. Cheng Taking Kayexalate Taking sodium bicarb tablets Monitor closely Dizziness Is improving Impulsive Pursuing disability 07/07/2021: Patient doing well Blood pressure very resistant so adding meds Consulting Dr. Cheng for iron deficiency and Procrit request Starting sodium bicarb Starting Kayexalate Had complete bowel evacuation this morning 07/06/2021: Pt doing okay Enema was done yesterday Laxatives will be given No dizziness if he lays in bed BP 180s so initiated Norvasc of 5mg twice daily and changed Hydralazine to 50 TID and Clonidine TID 07/05/2021: Patient doing well No concerns Bowel evacuation in process Maintained on laxatives No pain is reported We will start an IV iron infusion and vitamin B12 07/04/2021: Patient settling in well No BM yet only a few things that he is passed that are hard Continue on laxatives Creatinine 4.0 Hemoglobin 7.4 which is chronic No signs of bleeding Check meds and labs Therapy working with him Review of Systems General: Fatigue, Malaise Neurological: Weakness, Incoordination Objective Exam Vital Signs Vital Signs Date Time Temp Pulse Resp B/P (MAP) Pulse Ox O2 Delivery O2 Flow Rate FiO2 07/08/21 20:24 Room Air 07/08/21 19:45 35.9 76 17 173/75 (107) 98 Capillary Refill : General Appearance: No Apparent Distress, WD/WN, Chronically ill HEENT: PERRL/EOMI, Normal ENT Inspection, Pharynx Normal Neck: Full Range of Motion, Normal Inspection, Non Tender, Supple, Carotid Bruit Respiratory: Chest Non Tender, Lungs Clear, Normal Breath Sounds, No Accessory Muscle Use, No Respiratory Distress Cardiovascular: Regular Rate, Rhythm, No Edema, No Gallop, No JVD, No Murmur, Normal Peripheral Pulses Gastrointestinal: Normal Bowel Sounds, No Organomegaly, No Pulsatile Mass, Non Tender, Soft Back: Normal Inspection, No CVA Tenderness, No Vertebral Tenderness Extremity: Normal Capillary Refill, Normal Inspection, Normal Range of Motion, Non Tender, No Calf Tenderness, No Pedal Edema Neurologic/Psychiatric: Alert, Oriented x3, No Motor/Sensory Deficits, well driller II- XII Norm as Tested, Abnormal Gait, Depressed Affect, Motor Weakness (generalized 3/5) Skin: Normal Color, Warm/Dry Lymphatic: No Adenopathy Results/Procedures Lab Patient resulted labs reviewed. FIM Transfers Therapy Code Descriptions/Definitions Functional [place] Measure: 0=Not Assessed/NA 4=Minimal Assistance 1=Total Assistance 5=Supervision or Setup 2=Maximal Assistance 6=Modified [place] 3=Moderate Assistance 7=Complete IndependenceSCALE: Activities may be completed with or without assistive devices. 4-Bfdmubhkcs-wjdsror completes the activity by him/herself with no assistance from a helper. 5-Set-up or Clean-up Assistance-helper sets up or cleans up; patient completes activity. [place] assists only prior to or following the activity. 4-Supervision or Touching Assistance-helper provides verbal cues and/or touching/steadying and/or contact guard assistance as patient completes activity. Assistance may be provided throughout the activity or intermittently. 3-Partial/Moderate Assistance-helper does LESS THAN HALF the effort. [place] lifts, holds or supports trunk or limbs, but provides less than half the effort. 2-Substantial/Maximal Assistance-helper does MORE THAN HALF the effort. [place] lifts or holds trunk or limbs and provides more than half the effort. 5-Iitcglgbq-gfttku does ALL the effort. Patient does none of the effort to complete the activity. Or, the assistance of 2 or more helpers is required for the patient to complete the activity. If activity was not attempted, code reason: 7-Patient Refused. 9-Not Applicable-not attempted and the patient did not perform the activity before the current illness, exacerbation or injury. 10-Not Attempted due to Environmental Limitations-(lack of equipment, weather restraints, etc.). 88-Not Attempted due to Medical Conditions or Safety Concerns. Roll Left to Right (QC): 3 Sit to Lying (QC): 3 Sit to Stand (QC): 3 Chair/Poz-ui-Wpolw Xfer(QC): 3 Car Transfer (QC): 2 Gait Training Does the Patient Walk?: Yes Distance: 100', 75' Walk 10 feet (QC): 3 Walk 50 ft with 2 Turns(QC): 3 Walk 150 ft (QC): 88 Walking 10ft/uneven surface-QC: 2 Gait Persons Needed: 2 Gait Assistive Device: FWW Wheelchair Training Does the Pt Use a Wheelchair?: No Wheel 50 ft with 2 turns (QC): 9 Wheel 150 ft (QC): 9 Stair Training #of Steps: 1 1 Step (curb) (QC): 2 4 Steps (QC): 88 12 Steps (QC): 88 Balance Picking up an Object (QC): 1 ADL-Treatment Eating (QC): 6 Oral Hygiene (QC): 3 Bathing Location: L Arm, R Arm, L Upper Leg, R Upper Leg, L Lower Leg (including foot), R Lower Leg (including foot), Chest, Abdomen, Buttocks, Perineal Area Shower/Bathe Self (QC): 3 Upper Body Dressing (QC): 4 Lower Body Dressing (QC): 3 On/Off Footwear (QC): 4 Toileting Hygiene (QC): 3 Toilet Transfer (QC): 3 Assessment/Plan Assessment and Plan Assess & Plan/Chief Complaint Assessment: CVA cerebellar type Dizziness Fall risk h/o Back [id number] L2,3,4 CKD (chronic kidney disease) stage 4, GFR 15-29 ml/min Combined form of senile cataract of both eyes Diabetes mellitus High cholesterol Hypertension malignant type 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 MACK for Procrit request 07/08/2021: Status post with erythropoietin Continue Kayexalate Continue sodium bicarb (1) CVA (cerebral vascular accident) MICHELLE ABBASI DO Jul 08, 2021 09:29
[2021-07-08] MEDS: polyethylene glycoL POWDER 17 GM (MIRALAX) PACK PO SCH ×2 (09:31→20:04)
[2021-07-08] MEDS: DOCUSATE SODIUM 100 MG (COLACE) CAP PO SCH ×2 (09:31→20:03)
--- NOTE | 2021-07-08 09:31 | Physical Therapy Daily Note ---
PT Daily Note-Current Subjective Pt in bed upon arrival and agrees to co-treat. Pt has no c/o pain and states there hasn't been any dizziness today. Pt states his vision has gotten worse since CVA, RN notified Mental Status Patient Orientation: Person, Place, Time, Situation Transfers SCALE: Activities may be completed with or without assistive devices. 0-Yvrhhpahrp-zoacpyq completes the activity by him/herself with no assistance from a helper. 5-Set-up or Clean-up Assistance-helper sets up or cleans up; patient completes activity. [place] assists only prior to or following the activity. 4-Supervision or Touching Assistance-helper provides verbal cues and/or touching/steadying and/or contact guard assistance as patient completes activity. Assistance may be provided throughout the activity or intermittently. 3-Partial/Moderate Assistance-helper does LESS THAN HALF the effort. [place] lifts, holds or supports trunk or limbs, but provides less than half the effort. 2-Substantial/Maximal Assistance-helper does MORE THAN HALF the effort. [place] lifts or holds trunk or limbs and provides more than half the effort. 6-Jmrgasrow-gloopq does ALL the effort. Patient does none of the effort to complete the activity. Or, the assistance of 2 or more helpers is required for the patient to complete the activity. If activity was not attempted, code reason: 7-Patient Refused. 9-Not Applicable-not attempted and the patient did not perform the activity before the current illness, exacerbation or injury. 10-Not Attempted due to Environmental Limitations-(lack of equipment, weather restraints, etc.). 88-Not Attempted due to Medical Conditions or Safety Concerns. Roll Left & Right (QC): 4 Lying to Sitting/Side of Bed(Q: 4 Sit to Stand (QC): 3 Gait Training Does the Patient Walk?: Yes Distance: 150' x4 Walk 10 feet (QC): 3 Walk 50 ft with 2 Turns(QC): 3 Walk 150 ft (QC): 3 Gait Persons Needed: 2 Gait Assistive Device: FWW Min/ModA for stability. Pt very impulsive throughout gait, tends to orange picking supervisor FWW for turns. Scissors w/ most amb, VC for wide ALEKSANDR, keep centered in FWW, and safety awareness. Pt instructed to amb w/ one LE on each side on line on ground. Pt more steady when doing so. Exercises Seated Therapy Exercises: Long arc quads, Hip abd/add Seated Reps: 12 Treatments Co-treat with 2 skilled clinicians d/t pt poor stability, impulsiveness, mobility, and safety. OT focused on dressing, ADLs, and UE coordination. PT focused on mobility, balance, and LE coordination. Pt completes bed mob and sits EOB. Pt completes dressing and amb to bathroom for ADLs (see OT note). Pt then amb 150' w/ FWW to therapy gym. Post seated rest break, pt amb around ARU while looking for clothes pins and grabbing them to improve visual scanning, UE coordination, balance, and gait training. Pt then amb back to therapy gym and completes dynamic standing balance activity while using R UE for coordination activity and supported on FWW w/ L UE. Pt requires Min/ModA for stability, increased A with fatigue. Pt then completes seated exercise, then amb back to room. Pt returns to recliner and was left with all needs met, call light in hand. Assessment Current Status: Good Progress BP taken 3 times at beginning of tx, in supine (191/84), sitting EOB (183/68), and standing (183/83), and taken post tx in recliner (194/82). RN notified of high BP. Pt requires frequent rest breaks during tx. Pt extremely impulsive and unsteady, requires Min/ModA for safety for mobility. PT Liquid Waste Treatment Plant Operator Goals Liquid Waste Treatment Plant Operator Goals PT Liquid Waste Treatment Plant Operator Goals Time Frame: Jul 18, 2021 Roll Left & Right (QC): 5 Sit to Lying (QC): 5 Lying-Sitting on Side/Bed(QC): 5 Sit to Stand (QC): 5 Chair/Hwp-ld-Ikjsj Xfer(QC): 5 Toilet Transfer (QC): 5 Car Transfer (QC): 55 Does the Patient Walk: Yes Walk 10 feet (QC): 5 Walk 50ft with 2 Turns (QC): 5 Walk 150 ft (QC): 5 Walking 10ft on Uneven Surface: 5 1 Step (curb) (QC): 5 4 Steps (QC): 5 12 Steps (QC): 5 Picking up an Object (QC): 5 Does the Pt use WC or Scooter?: No Wheel 50 feet with 2 turns (QC: 9 Wheel 150 feet: 9 PT Plan Treatment/Plan Treatment Plan: Continue Plan of Care Treatment Plan: Bed Mobility, Concurrent Therapy, Education, Functional Activity Navya, Functional Strength, Group Therapy, Gait, Safety, Therapeutic Exercise, Transfers Treatment Duration: Jul 18, 2021 Frequency: At least 5 of 7 days/Wk (IRF) Estimated Hrs Per Day: 1.5 hours per day Patient and/or Family Agrees t: Yes Time/GCodes Time In: 800 Time Out: 930 Total Billed Treatment Time: 90 Total Billed Treatment 1, FA x2, GT x2, NM x2 DEA RODRIGUEZ SOFTWARE CONSULTANT Jul 08, 2021 09:31
[2021-07-08] MEDS: SENNA W/DOCUSATE (SENOKOT S) TABLET PO SCH ×2 (09:32→20:04)
[2021-07-08] MEDS: SOD POLYSTERENE 15 GM/60 ML (KAYEXALATE) UNIT DOSE PO SCH (09:38)
[2021-07-08 09:39] VITALS: BP 169/76
[2021-07-08 19:45] VITALS: BP 173/75
[2021-07-08] MEDS: MELATONIN 3 MG TABLET PO SCH (21:19)
[2021-07-08] MEDS: MIRTAZAPINE 15 MG (REMERON) TAB PO SCH (21:21)
[2021-07-09] MEDS: inSUlin ASPART (NovoLOG) 1 UNIT/0.01 ML (CHARGE PER UNIT) SC SCH ×4 (06:02→21:12)
[2021-07-09] MEDS: CYANOCOBALAMIN 1,000 MCG (VITAMIN B-12) TABLET PO SCH (06:45)
[2021-07-09] MEDS: doxAzosin 1 MG (CARDURA) TAB PO SCH ×2 (07:23→21:13)
[2021-07-09] MEDS: MECLIZINE 25 MG (ANTIVERT) TAB PO SCH ×3 (07:23→21:13)
[2021-07-09] MEDS: IRON SUCROSE 200 MG/10 ML (VENOFER) VIAL IV SCH (07:24)
[2021-07-09] MEDS: ASPIRIN E.C. 325 MG (ECOTRIN) TABLET PO SCH (07:24)
[2021-07-09] MEDS: PANTOPRAZOLE 40 MG (PROTONIX) TAB PO SCH (07:24)
[2021-07-09] MEDS: SOD POLYSTERENE 15 GM/60 ML (KAYEXALATE) UNIT DOSE PO SCH (07:24)
[2021-07-09] MEDS: LOSARTAN 50 MG (COZAAR) TAB PO SCH (07:24)
[2021-07-09] MEDS: amLODIPine 5 MG (NORVASC) TAB PO SCH ×2 (07:24→21:13)
[2021-07-09] MEDS: SODIUM BICARBONATE 650 MG TABLET (NON-FORMULARY) PO SCH ×2 (07:24→21:13)
[2021-07-09] MEDS: hydrALAZINE (APRESOLINE) 25 MG TAB PO SCH ×3 (07:24→21:13)
[2021-07-09] MEDS: cloNIDine 0.1 MG (CATAPRES) TAB PO SCH ×3 (07:24→21:13)
[2021-07-09 08:00] VITALS: BP 167/74
[2021-07-09] MEDS: polyethylene glycoL POWDER 17 GM (MIRALAX) PACK PO SCH ×2 (08:38→20:16)
[2021-07-09] MEDS: DOCUSATE SODIUM 100 MG (COLACE) CAP PO SCH ×2 (08:38→20:09)
[2021-07-09] MEDS: SENNA W/DOCUSATE (SENOKOT S) TABLET PO SCH ×2 (08:39→20:16)
--- NOTE | 2021-07-09 08:57 | Occupational Ther Daily Note ---
OT Current Status-Daily Note Subjective Pt alert, working with PT in therapy gym. Pt agrees to therapy. No c/o pain at this time. Mental Status/Objective Patient Orientation: Person, Place, Time, Situation ADL-Treatment 1st session([id number]): Pt sitting EOB with SBA due to impulsivity and balance issues. After set up, pt able to don/doff shirt and footwear by self. After set up, pt able to thread pants on/off feet then CGA to hike pants over hips due to balance issues, pt using B UE to hike pants no other stabilization. Pt then ambulated to bathroom to stand at sink with CGA due to balance issues to complete grooming and oral care with CGA. Verbal cues for safety during all ADLs. Therapy Code Descriptions/Definitions Functional [place] Measure: 0=Not Assessed/NA 4=Minimal Assistance 1=Total Assistance 5=Supervision or Setup 2=Maximal Assistance 6=Modified [place] 3=Moderate Assistance 7=Complete IndependenceSCALE: Activities may be completed with or without assistive devices. 1-Uobiiineof-nhbufci completes the activity by him/herself with no assistance from a helper. 5-Set-up or Clean-up Assistance-helper sets up or cleans up; patient completes activity. [place] assists only prior to or following the activity. 4-Supervision or Touching Assistance-helper provides verbal cues and/or touching/steadying and/or contact guard assistance as patient completes activity. Assistance may be provided throughout the activity or intermittently. 3-Partial/Moderate Assistance-helper does LESS THAN HALF the effort. [place] lifts, holds or supports trunk or limbs, but provides less than half the effort. 2-Substantial/Maximal Assistance-helper does MORE THAN HALF the effort. [place] lifts or holds trunk or limbs and provides more than half the effort. 3-Luhsiqogx-remnxz does ALL the effort. Patient does none of the effort to complete the activity. Or, the assistance of 2 or more helpers is required for the patient to complete the activity. If activity was not attempted, code reason: 7-Patient Refused. 9-Not Applicable-not attempted and the patient did not perform the activity before the current illness, exacerbation or injury. 10-Not Attempted due to Environmental Limitations-(lack of equipment, weather restraints, etc.). 88-Not Attempted due to Medical Conditions or Safety Concerns. Co-treat with PT([id number]), 2 clinicians required for skilled instruction and care to increase body awareness, decrease fall risk and increase all mobility. PT focusing on transfers, standing, ambulation and dynamic balance while OT focusing on ADLs, B UE strengthening, body awareness and all functional mobility. Other Treatment 1st session([id number]): Pt requires CGA to min A for ambulation due to balance issues and impulsivity. Using FWW, pt ambulated around 2nd floor of hospital visually scanning for cones placed at varying heights. Pt able to scan and find 80% of cones without cues. Min A to bend and grasp cones at floor level and assist to make sure pt did not hit head on wall or wall rail when bending. Pt required 2 recovery breaks during this part of treatment. Pt engaged in therapeutic exercise program using green(medium-heavier resistance) theraband for resistance to strengthen B UE and increase activity tolerance for ADLs while seated in recliner in room.. Pt participated in 15 reps each of: B shoulder abduction, B horizontal shoulder abduction, B internal/external rotation. Pt required skilled instruction for correct technique, VC and TC to complete task. After session, pt sitting in recliner with call light/phone in reach. All needs met in room. 2nd session([id number]) Pt participated in therapeutic exercise using green(medium-heavier resistance) theraband for resistance to strengthen B UE and increase activity tolerance for ADLs while seated in recliner in room.. Pt participated in 15 reps x 2 each of: B shoulder abduction, B horizontal shoulder abduction, B internal/external rotation, B tricep extensions, and B Bicep curls. Pt required skilled instruction for correct technique, demonstrating good return on instructions. After session, pt sitting in recliner with call light/phone in reach. All needs met. Education OT Patient Education: Exercise program Teaching Recipient: Patient, Significant Other Teaching Methods: Demonstration, Handout, Discussion Response to Teaching: Verbalize Understanding, Return Demonstration OT Short Term Goals Short Term Goals Time Frame: Jul 11, 2021 Eatin Oral hygiene: 4 Toileting hygiene: 4 Shower/bathe self: 4 Upper body dressin Lower body dressin Putting on/taking off footwear: 3 OT Desktop Publishing Specialist Goals [facility] Goals Time Frame: Jul 18, 2021 Eating (QC): 6 Oral Hygiene (QC): 6 Toileting Hygiene (QC): 6 Shower/Bathe Self (QC): 5 Upper Body Dressing (QC): 6 Lower Body Dressing (QC): 5 On/Off Footwear (QC): 6 Additional Goals: 1-Demonstrate ADL Tasks, 2-Verbalize Understanding, 3- ImproveStrength/[place] 1=Demonstrate adherence to instructed precautions during ADL tasks. 2=Patient will verbalize/demonstrate understanding of assistive devices/modifications for ADL. 3=Patient will improve strength/tolerance for activity to enable patient to perform ADL's. OT Education/Plan Problem List/Assessment Assessment: Decreased Activ Tolerance, Decreased Safety Aware, Decreased UE Strength, Impaired Funct Balance, Impaired Self-Care Skills Discharge Recommendations Plan/Recommendations: Continue POC Treatment Plan/Plan of Care Patient would benefit from OT for education, treatment and training to promote independence in ADL's, mobility, safety and/or upper extremity function for ADL's. Plan of Care: ADL Retraining, Functional Mobility, Group Exercise/Act as Ind, UE Funct Exercise/Act Treatment Duration: Jul 18, 2021 Frequency: At least 5 of 7 days/Wk (IRF) Estimated Hrs Per Day: 1.5 hours per day Agreement: Yes Rehab Potential: Fair Time/GCodes Start Time: 08:00 (1430) Stop Time: 09:00 (1500) Total Time Billed (hr/min): 90 Billed Treatment Time 1 Visit ([id number])- ADL (15 min) EX (15 min) FA 2 (30 min), Co-treat with PT ([id number]). 1 Visit ([id number]) Ex 2 (30 min) TIFFANIE SOTELO Jul 09, 2021 08:57
--- NOTE | 2021-07-09 09:04 | Physical Therapy Daily Note ---
PT Daily Note-Current Subjective Pt in bed w/ RN in room and agrees to tx. Pt has no c/o pain and states that dizziness is getting better, only experienced once yesterday at night and not yet today. Mental Status Patient Orientation: Person, Place, Time, Situation Transfers SCALE: Activities may be completed with or without assistive devices. 6-Bcipidvhiu-gffrmpy completes the activity by him/herself with no assistance from a helper. 5-Set-up or Clean-up Assistance-helper sets up or cleans up; patient completes activity. [place] assists only prior to or following the activity. 4-Supervision or Touching Assistance-helper provides verbal cues and/or touchi ng/steadying and/or contact guard assistance as patient completes activity. Assistance may be provided throughout the activity or intermittently. 3-Partial/Moderate Assistance-helper does LESS THAN HALF the effort. [place] lifts, holds or supports trunk or limbs, but provides less than half the effort. 2-Substantial/Maximal Assistance-helper does MORE THAN HALF the effort. [place] lifts or holds trunk or limbs and provides more than half the effort. 4-Mritzxmym-uferjx does ALL the effort. Patient does none of the effort to complete the activity. Or, the assistance of 2 or more helpers is required for the patient to complete the activity. If activity was not attempted, code reason: 7-Patient Refused. 9-Not Applicable-not attempted and the patient did not perform the activity before the current illness, exacerbation or injury. 10-Not Attempted due to Environmental Limitations-(lack of equipment, weather restraints, etc.). 88-Not Attempted due to Medical Conditions or Safety Concerns. Roll Left & Right (QC): 6 Sit to Lying (QC): 6 Lying to Sitting/Side of Bed(Q: 4 Sit to Stand (QC): 3 Gait Training Does the Patient Walk?: Yes Distance: 200' x2, 100' x4 Walk 10 feet (QC): 3 Walk 50 ft with 2 Turns(QC): 3 Walk 150 ft (QC): 3 Gait Persons Needed: 1 Gait Assistive Device: FWW Pt has extremely unsteady gait. Accelerated pace, scissoring, veers to R side, and has LOB often. With slower pace, VC and TC for foot placement pt is more steady. Pt attempted to amb w/ 1 lbs weights on R UE and LE to A with coordination. Pt used FWW w/ theraband around front center and attached to pt gait belt at umbilical to TC and visual cues to stay centered in FWW and have wider ALEKSANDR, pt had less LOB w/ use of theraband. Exercises Supine Ex: Hip abd/add Supine Reps: 10 Seated Therapy Exercises: Ankle pumps, Long arc quads, Hip flexion Seated Reps: 10 Treatments 730-800: Pt completes bed mobility and sits EOB. pt sit to stand Nafisa and amb 200' x2 w/ Min/ModA. Pt has slight LOB throughout, VC given to pause amb for pt to regain balance before beginning to amb again. Pt enters therapy gym and during seated rest break theraband attached to pt and FWW. OT enters tx at this time. 800-900 Co-treat: Use of 2 skilled clinicians d/t poor balance, mobility, impulsiveness, safety, and pt risk of falls. OT focused on dressing, ADLs, and UE coordination/strengthening. PT focused on gait, balance, and LE coordination/strengthening. Pt amb around ARU finding cones placed throughout, pt able to picker and packer all cones and place them, reaching in all planes. Pt requires ModA when grabbing cones on floor for stabilization. Pt then enters room and changes clothes, enters bathroom to brush teeth, then sits in recliner. Pt completes seated ex, followed by supine ex w/ leg rest raised. Pt remains in recliner with all needs met, call light in hand. Assessment Current Status: Good Progress Pt increasing mobility, endurance, balance, and strength. Pt increase amb distance today with more steady gait. PT Advanced Solutions Architect Goals Advanced Solutions Architect Goals PT Advanced Solutions Architect Goals Time Frame: Jul 18, 2021 Roll Left & Right (QC): 5 Sit to Lying (QC): 5 Lying-Sitting on Side/Bed(QC): 5 Sit to Stand (QC): 5 Chair/Pte-xg-Iodel Xfer(QC): 5 Toilet Transfer (QC): 5 Car Transfer (QC): 55 Does the Patient Walk: Yes Walk 10 feet (QC): 5 Walk 50ft with 2 Turns (QC): 5 Walk 150 ft (QC): 5 Walking 10ft on Uneven Surface: 5 1 Step (curb) (QC): 5 4 Steps (QC): 5 12 Steps (QC): 5 Picking up an Object (QC): 5 Does the Pt use WC or Scooter?: No Wheel 50 feet with 2 turns (QC: 9 Wheel 150 feet: 9 PT Plan Treatment/Plan Treatment Plan: Continue Plan of Care Treatment Plan: Bed Mobility, Concurrent Therapy, Education, Functional Activity Navya, Functional Strength, Group Therapy, Gait, Safety, Therapeutic Exercise, Transfers Treatment Duration: Jul 18, 2021 Frequency: At least 5 of 7 days/Wk (IRF) Estimated Hrs Per Day: 1.5 hours per day Patient and/or Family Agrees t: Yes Time/GCodes Time In: 730 Time Out: 900 Total Billed Treatment Time: 90 Total Billed Treatment 1, GT x3, FA x2, Ex DEA RODRIGUEZ SHAFTING CLEANER Jul 09, 2021 09:04
--- NOTE | 2021-07-09 10:11 | PM&R Progress Note ---
Subjective HPI/CC On Admission Date Seen by Provider: Jul 09, 2021 Time Seen by Provider: 10:15 Subjective/Events-last exam 07/09/2021: Patient dramatically improved at bedside Sugar was 95 Reviewed blood pressure trend and will adjust medications again Checking labs tomorrow Kayexalate maintained although loose stools occur that is how hyperkalemia is resolved Not eating bananas anymore 07/08/2021: Patient doing really well Received erythropoietin yesterday Appreciate Dr. Cheng Taking Kayexalate Taking sodium bicarb tablets Monitor closely Dizziness Is improving Impulsive Pursuing disability 07/07/2021: Patient doing well Blood pressure very resistant so adding meds Consulting Dr. Cheng for iron deficiency and Procrit request Starting sodium bicarb Starting Kayexalate Had complete bowel evacuation this morning 07/06/2021: Pt doing okay Enema was done yesterday Laxatives will be given No dizziness if he lays in bed BP 180s so initiated Norvasc of 5mg twice daily and changed Hydralazine to 50 TID and Clonidine TID 07/05/2021: Patient doing well No concerns Bowel evacuation in process Maintained on laxatives No pain is reported We will start an IV iron infusion and vitamin B12 07/04/2021: Patient settling in well No BM yet only a few things that he is passed that are hard Continue on laxatives Creatinine 4.0 Hemoglobin 7.4 which is chronic No signs of bleeding Check meds and labs Therapy working with him Review of Systems General: Fatigue, Malaise Neurological: Weakness, Incoordination Objective Exam Vital Signs Vital Signs Date Time Temp Pulse Resp B/P (MAP) Pulse Ox O2 Delivery O2 Flow Rate FiO2 07/09/21 20:10 Room Air 07/09/21 19:37 37.0 84 18 163/72 (102) 98 Capillary Refill : General Appearance: No Apparent Distress, WD/WN, Chronically ill HEENT: PERRL/EOMI, Normal ENT Inspection, Pharynx Normal Neck: Full Range of Motion, Normal Inspection, Non Tender, Supple, Carotid Bruit Respiratory: Chest Non Tender, Lungs Clear, Normal Breath Sounds, No Accessory Muscle Use, No Respiratory Distress Cardiovascular: Regular Rate, Rhythm, No Edema, No Gallop, No JVD, No Murmur, Normal Peripheral Pulses Gastrointestinal: Normal Bowel Sounds, No Organomegaly, No Pulsatile Mass, Non Tender, Soft Back: Normal Inspection, No CVA Tenderness, No Vertebral Tenderness Extremity: Normal Capillary Refill, Normal Inspection, Normal Range of Motion, Non Tender, No Calf Tenderness, No Pedal Edema Neurologic/Psychiatric: Alert, Oriented x3, No Motor/Sensory Deficits, acid plant helper II- XII Norm as Tested, Abnormal Gait, Depressed Affect, Motor Weakness (generalized 3/5) Skin: Normal Color, Warm/Dry Lymphatic: No Adenopathy Results/Procedures Lab Patient resulted labs reviewed. FIM Transfers Therapy Code Descriptions/Definitions Functional [place] Measure: 0=Not Assessed/NA 4=Minimal Assistance 1=Total Assistance 5=Supervision or Setup 2=Maximal Assistance 6=Modified [place] 3=Moderate Assistance 7=Complete IndependenceSCALE: Activities may be completed with or without assistive devices. 0-Evzzqurzce-rdewxbq completes the activity by him/herself with no assistance from a helper. 5-Set-up or Clean-up Assistance-helper sets up or cleans up; patient completes activity. [place] assists only prior to or following the activity. 4-Supervision or Touching Assistance-helper provides verbal cues and/or touching/steadying and/or contact guard assistance as patient completes activity. Assistance may be provided throughout the activity or intermittently. 3-Partial/Moderate Assistance-helper does LESS THAN HALF the effort. [place] lifts, holds or supports trunk or limbs, but provides less than half the effort. 2-Substantial/Maximal Assistance-helper does MORE THAN HALF the effort. [place] lifts or holds trunk or limbs and provides more than half the effort. 9-Kffabhemf-enurvl does ALL the effort. Patient does none of the effort to complete the activity. Or, the assistance of 2 or more helpers is required for the patient to complete the activity. If activity was not attempted, code reason: 7-Patient Refused. 9-Not Applicable-not attempted and the patient did not perform the activity before the current illness, exacerbation or injury. 10-Not Attempted due to Environmental Limitations-(lack of equipment, weather restraints, etc.). 88-Not Attempted due to Medical Conditions or Safety Concerns. Roll Left to Right (QC): 6 Sit to Lying (QC): 6 Sit to Stand (QC): 3 Chair/Epr-gf-Huyzz Xfer(QC): 3 Car Transfer (QC): 2 Gait Training Does the Patient Walk?: Yes Distance: 200' x2, 100' x4 Walk 10 feet (QC): 3 Walk 50 ft with 2 Turns(QC): 3 Walk 150 ft (QC): 3 Walking 10ft/uneven surface-QC: 2 Gait Persons Needed: 1 Gait Assistive Device: FWW Wheelchair Training Does the Pt Use a Wheelchair?: No Wheel 50 ft with 2 turns (QC): 9 Wheel 150 ft (QC): 9 Stair Training #of Steps: 1 1 Step (curb) (QC): 2 4 Steps (QC): 88 12 Steps (QC): 88 Balance Picking up an Object (QC): 1 ADL-Treatment Eating (QC): 6 Oral Hygiene (QC): 3 Bathing Location: L Arm, R Arm, L Upper Leg, R Upper Leg, L Lower Leg (inc luding foot), R Lower Leg (including foot), Chest, Abdomen, Buttocks, Perineal Area Shower/Bathe Self (QC): 3 Upper Body Dressing (QC): 4 Lower Body Dressing (QC): 3 (balance assist only) On/Off Footwear (QC): 4 Toileting Hygiene (QC): 3 Toilet Transfer (QC): 3 Assessment/Plan Assessment and Plan Assess & Plan/Chief Complaint Assessment: CVA cerebellar type Dizziness Fall risk h/o Back [id number] L2,3,4 CKD (chronic kidney disease) stage 4, GFR 15-29 ml/min Combined form of senile cataract of both eyes Diabetes mellitus High cholesterol Hypertension malignant type 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 MACK for Procrit request 07/08/2021: Status post with erythropoietin Continue Kayexalate Continue sodium bicarb 07/09/2021: Checking labs tomorrow Monitor blood pressure (1) CVA (cerebral vascular accident) MICHELLE ABBASI DO Jul 09, 2021 10:11
[2021-07-09 13:32] VITALS: BP 173/77
[2021-07-09] MEDS ORDERED: ERGO1250 PO (14:56)
[2021-07-09] MEDS ORDERED: MONT10TA32 PO (14:56)
[2021-07-09] MEDS ORDERED: LORA10TA7 PO (14:56)
[2021-07-09 19:37] VITALS: BP 163/72
[2021-07-09] MEDS: MIRTAZAPINE 15 MG (REMERON) TAB PO SCH (21:13)
[2021-07-09] MEDS: MELATONIN 3 MG TABLET PO SCH (21:13)
[2021-07-10] MEDS: inSUlin ASPART (NovoLOG) 1 UNIT/0.01 ML (CHARGE PER UNIT) SC SCH ×4 (05:35→21:22)
[2021-07-10 06:15] LABS: BASOPHILS # (AUTO) 0.1 10^3/uL (0.0-0.1); BASOPHILS % (AUTO) 1 % (0-10); EOSINOPHILS # (AUTO) 0.4 10^3/uL (0.0-0.3); EOSINOPHILS % (AUTO) 4 % (0-10); HEMATOCRIT 22 % (40-54); HEMOGLOBIN 7.4 g/dL (13.3-17.7); LYMPHOCYTES # (AUTO) 2.4 10^3/uL (1.0-4.0); LYMPHOCYTES % (AUTO) 23 % (12-44); MEAN CORPUSCULAR HEMOGLOBIN 30 pg (25-34); MEAN CORPUSCULAR HGB CONC 33 g/dL (32-36); MEAN CORPUSCULAR VOLUME 89 fL (80-99); MEAN PLATELET VOLUME 9.2 fL (9.0-12.2); MONOCYTES # (AUTO) 0.7 10^3/uL (0.0-1.0); MONOCYTES % (AUTO) 7 % (0-12); NEUTROPHILS # (AUTO) 6.5 10^3/uL (1.8-7.8); NEUTROPHILS % (AUTO) 65 % (42-75); PLATELET COUNT 381 10^3/uL (130-400); WHITE BLOOD COUNT 10.1 10^3/uL (4.3-11.0)
[2021-07-10 06:24] LABS: ALBUMIN 2.7 GM/DL (3.2-4.5); POTASSIUM 4.9 MMOL/L (3.6-5.0)
[2021-07-10 06:25] LABS: CALCIUM 7.9 MG/DL (8.5-10.1)
[2021-07-10 06:27] LABS: TOTAL PROTEIN 5.4 GM/DL (6.4-8.2)
[2021-07-10 06:28] LABS: BILIRUBIN,TOTAL 0.3 MG/DL (0.1-1.0)
[2021-07-10 06:30] LABS: CREATININE SERUM 3.02 MG/DL (0.60-1.30)
[2021-07-10] MEDS: CYANOCOBALAMIN 1,000 MCG (VITAMIN B-12) TABLET PO SCH (06:36)
[2021-07-10 07:54] VITALS: BP 177/77
[2021-07-10] MEDS: ASPIRIN E.C. 325 MG (ECOTRIN) TABLET PO SCH (08:23)
[2021-07-10] MEDS: PANTOPRAZOLE 40 MG (PROTONIX) TAB PO SCH (08:23)
[2021-07-10] MEDS: SENNA W/DOCUSATE (SENOKOT S) TABLET PO SCH ×2 (08:23→21:25)
[2021-07-10] MEDS: hydrALAZINE (APRESOLINE) 25 MG TAB PO SCH ×3 (08:23→21:16)
[2021-07-10] MEDS: SODIUM BICARBONATE 650 MG TABLET (NON-FORMULARY) PO SCH ×2 (08:23→21:16)
[2021-07-10] MEDS: amLODIPine 5 MG (NORVASC) TAB PO SCH ×2 (08:23→21:15)
[2021-07-10] MEDS: DOCUSATE SODIUM 100 MG (COLACE) CAP PO SCH ×2 (08:23→21:16)
[2021-07-10] MEDS: doxAzosin 1 MG (CARDURA) TAB PO SCH ×2 (08:24→21:15)
[2021-07-10] MEDS: cloNIDine 0.1 MG (CATAPRES) TAB PO SCH ×3 (08:24→21:15)
[2021-07-10] MEDS: MECLIZINE 25 MG (ANTIVERT) TAB PO SCH ×3 (08:26→21:15)
[2021-07-10] MEDS: polyethylene glycoL POWDER 17 GM (MIRALAX) PACK PO SCH ×2 (09:00→21:24)
--- NOTE | 2021-07-10 09:57 | Physical Therapy Daily Note ---
PT Daily Note-Current Subjective Pt in bed upon arrival and agrees to tx. Pt has no c/o pain but states he was dizzy earlier this morning. Mental Status Patient Orientation: Person, Place, Situation Transfers SCALE: Activities may be completed with or without assistive devices. 4-Ebqvovgkaf-mclexqe completes the activity by him/herself with no assistance from a helper. 5-Set-up or Clean-up Assistance-helper sets up or cleans up; patient completes activity. [place] assists only prior to or following the activity. 4-Supervision or Touching Assistance-helper provides verbal cues and/or touching/steadying and/or contact guard assistance as patient completes activity. Assistance may be provided throughout the activity or intermittently. 3-Partial/Moderate Assistance-helper does LESS THAN HALF the effort. [place] lifts, holds or supports trunk or limbs, but provides less than half the effort. 2-Substantial/Maximal Assistance-helper does MORE THAN HALF the effort. [place] lifts or holds trunk or limbs and provides more than half the effort. 4-Yhfoluhcv-brhhez does ALL the effort. Patient does none of the effort to complete the activity. Or, the assistance of 2 or more helpers is required for the patient to complete the activity. If activity was not attempted, code reason: 7-Patient Refused. 9-Not Applicable-not attempted and the patient did not perform the activity before the current illness, exacerbation or injury. 10-Not Attempted due to Environmental Limitations-(lack of equipment, weather restraints, etc.). 88-Not Attempted due to Medical Conditions or Safety Concerns. Roll Left & Right (QC): 4 Sit to Lying (QC): 4 Lying to Sitting/Side of Bed(Q: 4 Sit to Stand (QC): 3 Gait Training Does the Patient Walk?: Yes Distance: 200' x2, 100' x5 Walk 10 feet (QC): 3 Walk 50 ft with 2 Turns(QC): 3 Walk 150 ft (QC): 3 Gait Persons Needed: 1 Gait Assistive Device: FWW Pt attempted to amb with accelerated pace today, was much more unsteady. VC for slower pace, wider ALEKSANDR, and to stay centered in FWW. With slow pace pt much more stable with gait Treatments Pt completes bed mobility and sit to stand Nafisa for steadiness. Pt amb to bathroom, able to doff/don pants and clean self CGA. Pt then amb 100' to therapy gym for seated rest break. Pt then amb 200' on ARU while searching for cones at various heights. With VC, pt able to find cones, requires CGA/Nafisa for stabilization throughout activity. Pt had slight LOB when grabbing cone from floor, correct by standing back upright and readjusting LE placement. Pt then completes various functional gait activities, navigating through cones with turns and in tight spaces. Pt requires VC for awareness of cones at times. Pt then amb 200' back to room and returns to recliner, pt remains in chair with all needs met, call light in hand. Assessment Current Status: Fair Progress Pt attempted to accelerate pace w/ amb today, VC given that w/ slower pace pt more steady. PT Tactical Response Group Officer Goals Tactical Response Group Officer Goals PT Tactical Response Group Officer Goals Time Frame: Jul 18, 2021 Roll Left & Right (QC): 5 Sit to Lying (QC): 5 Lying-Sitting on Side/Bed(QC): 5 Sit to Stand (QC): 5 Chair/Pbx-hk-Huqap Xfer(QC): 5 Toilet Transfer (QC): 5 Car Transfer (QC): 55 Does the Patient Walk: Yes Walk 10 feet (QC): 5 Walk 50ft with 2 Turns (QC): 5 Walk 150 ft (QC): 5 Walking 10ft on Uneven Surface: 5 1 Step (curb) (QC): 5 4 Steps (QC): 5 12 Steps (QC): 5 Picking up an Object (QC): 5 Does the Pt use WC or Scooter?: No Wheel 50 feet with 2 turns (QC: 9 Wheel 150 feet: 9 PT Plan Treatment/Plan Treatment Plan: Continue Plan of Care Treatment Plan: Bed Mobility, Concurrent Therapy, Education, Functional Activity Navya, Functional Strength, Group Therapy, Gait, Safety, Therapeutic Exercise, Transfers Treatment Duration: Jul 18, 2021 Frequency: At least 5 of 7 days/Wk (IRF) Estimated Hrs Per Day: 1.5 hours per day Patient and/or Family Agrees t: Yes Time/GCodes Time In: 900 Time Out: 1000 Total Billed Treatment Time: 60 Total Billed Treatment 1, GA x2, FA x2 DEA RODRIGUEZ CARE WORKER Jul 10, 2021 09:57
--- NOTE | 2021-07-10 11:05 | PM&R Progress Note ---
Subjective HPI/CC On Admission Date Seen by Provider: Jul 10, 2021 Time Seen by Provider: 11:15 Subjective/Events-last exam 07/10/2021: Dizziness improved Youngest son at the bedside Blood pressure still high Potassium 4.9 we will stop Kayexalate Stopping losartan due to hyperkalemia Hemoglobin the same at 7.4 07/09/2021: Patient dramatically improved at bedside Sugar was 95 Reviewed blood pressure trend and will adjust medications again Checking labs tomorrow Kayexalate maintained although loose stools occur that is how hyperkalemia is re solved Not eating bananas anymore 07/08/2021: Patient doing really well Received erythropoietin yesterday Appreciate Dr. Cheng Taking Kayexalate Taking sodium bicarb tablets Monitor closely Dizziness Is improving Impulsive Pursuing disability 07/07/2021: Patient doing well Blood pressure very resistant so adding meds Consulting Dr. Cheng for iron deficiency and Procrit request Starting sodium bicarb Starting Kayexalate Had complete bowel evacuation this morning 07/06/2021: Pt doing okay Enema was done yesterday Laxatives will be given No dizziness if he lays in bed BP 180s so initiated Norvasc of 5mg twice daily and changed Hydralazine to 50 TID and Clonidine TID 07/05/2021: Patient doing well No concerns Bowel evacuation in process Maintained on laxatives No pain is reported We will start an IV iron infusion and vitamin B12 07/04/2021: Patient settling in well No BM yet only a few things that he is passed that are hard Continue on laxatives Creatinine 4.0 Hemoglobin 7.4 which is chronic No signs of bleeding Check meds and labs Therapy working with him Review of Systems General: Fatigue, Malaise Objective Exam Vital Signs Vital Signs Date Time Temp Pulse Resp B/P (MAP) Pulse Ox O2 Delivery O2 Flow Rate FiO2 07/10/21 21:25 Room Air 07/10/21 20:00 37.4 83 18 163/74 (103) 95 Capillary Refill : General Appearance: No Apparent Distress, WD/WN, Chronically ill HEENT: PERRL/EOMI, Normal ENT Inspection, Pharynx Normal Neck: Full Range of Motion, Normal Inspection, Non Tender, Supple, Carotid Bruit Respiratory: Chest Non Tender, Lungs Clear, Normal Breath Sounds, No Accessory Muscle Use, No Respiratory Distress Cardiovascular: Regular Rate, Rhythm, No Edema, No Gallop, No JVD, No Murmur, Normal Peripheral Pulses Gastrointestinal: Normal Bowel Sounds, No Organomegaly, No Pulsatile Mass, Non Tender, Soft Back: Normal Inspection, No CVA Tenderness, No Vertebral Tenderness Extremity: Normal Capillary Refill, Normal Inspection, Normal Range of Motion, Non Tender, No Calf Tenderness, No Pedal Edema Neurologic/Psychiatric: Alert, Oriented x3, No Motor/Sensory Deficits, regional transportation manager II- XII Norm as Tested, Abnormal Gait, Depressed Affect, Motor Weakness (generalized 3/5) Skin: Normal Color, Warm/Dry Lymphatic: No Adenopathy Results/Procedures Lab Patient resulted labs reviewed. FIM Transfers Therapy Code Descriptions/Definitions Functional [place] Measure: 0=Not Assessed/NA 4=Minimal Assistance 1=Total Assistance 5=Supervision or Setup 2=Maximal Assistance 6=Modified [place] 3=Moderate Assistance 7=Complete IndependenceSCALE: Activities may be completed with or without assistive devices. 2-Ontmuhpbip-fbmirzx completes the activity by him/herself with no assistance from a helper. 5-Set-up or Clean-up Assistance-helper sets up or cleans up; patient completes activity. [place] assists only prior to or following the activity. 4-Supervision or Touching Assistance-helper provides verbal cues and/or touching/steadying and/or contact guard assistance as patient completes activity. Assistance may be provided throughout the activity or intermittently. 3-Partial/Moderate Assistance-helper does LESS THAN HALF the effort. [place] lifts, holds or supports trunk or limbs, but provides less than half the effort. 2-Substantial/Maximal Assistance-helper does MORE THAN HALF the effort. [place] lifts or holds trunk or limbs and provides more than half the effort. 4-Obbilxany-xjtqqo does ALL the effort. Patient does none of the effort to complete the activity. Or, the assistance of 2 or more helpers is required for the patient to complete the activity. If activity was not attempted, code reason: 7-Patient Refused. 9-Not Applicable-not attempted and the patient did not perform the activity before the current illness, exacerbation or injury. 10-Not Attempted due to Environmental Limitations-(lack of equipment, weather restraints, etc.). 88-Not Attempted due to Medical Conditions or Safety Concerns. Roll Left to Right (QC): 4 Sit to Lying (QC): 4 Sit to Stand (QC): 3 Chair/Hve-xd-Gbhhn Xfer(QC): 3 Car Transfer (QC): 2 Gait Training Does the Patient Walk?: Yes Distance: 200' x2, 100' x5 Walk 10 feet (QC): 3 Walk 50 ft with 2 Turns(QC): 3 Walk 150 ft (QC): 3 Walking 10ft/uneven surface-QC: 2 Gait Persons Needed: 1 Gait Assistive Device: FWW Wheelchair Training Does the Pt Use a Wheelchair?: No Wheel 50 ft with 2 turns (QC): 9 Wheel 150 ft (QC): 9 Stair Training #of Steps: 1 1 Step (curb) (QC): 2 4 Steps (QC): 88 12 Steps (QC): 88 Balance Picking up an Object (QC): 1 ADL-Treatment Eating (QC): 6 Oral Hygiene (QC): 3 Bathing Location: L Arm, R Arm, L Upper Leg, R Upper Leg, L Lower Leg (in cluding foot), R Lower Leg (including foot), Chest, Abdomen, Buttocks, Perineal Area Shower/Bathe Self (QC): 3 Upper Body Dressing (QC): 4 Lower Body Dressing (QC): 3 (balance assist only) On/Off Footwear (QC): 4 Toileting Hygiene (QC): 3 Toilet Transfer (QC): 3 Assessment/Plan Assessment and Plan Assess & Plan/Chief Complaint Assessment: CVA cerebellar type Dizziness Fall risk h/o Back [id number] L2,3,4 CKD (chronic kidney disease) stage 4, GFR 15-29 ml/min Combined form of senile cataract of both eyes Diabetes mellitus High cholesterol Hypertension malignant type 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 MACK for Procrit request 07/08/2021: Status post with erythropoietin Continue Kayexalate Continue sodium bicarb 07/09/2021: Checking labs tomorrow Monitor blood pressure 07/10/2021: Stop losartan Stop Kayexalate Continue iron infusions (1) CVA (cerebral vascular accident) MICHLELE ABBASI DO Jul 10, 2021 11:05
--- NOTE | 2021-07-10 11:13 | Occupational Ther Daily Note ---
OT Current Status-Daily Note Subjective Pt sitting in recliner, alert. Pt stated being weak, no c/o pain. Pt agrees to therapy. Mental Status/Objective Patient Orientation: Person, Place, Time, Situation Attachments: IV ADL-Treatment Pt agrees to shower. Pt sit->stand using FWW CGA , ambulated to shower seat in bathroom SBA using FWW. VC x 2 on proper hand placement and to slow down. Pt stand to sit using FWW and grab bars. Pt doffed UB independently, LB dressing SBA. Pt showered SBA. After shower Pt lost balance in shower requiring assist to recover. Pt educated on proper hand placement and transfer technique to transfer from FWW to chair. Pt donned UB dressing of shirt while seated independently after set up, LB dressing of underwear and pants SBA to thread over ankles and Min A to hike over hips, using FWW for stability when sit->stand. Pt independent after set up in donning shoes and socks while seated. Pt engaged in sit<->stand activity 5x to improve safety awareness and improve functional balance for ADL tasks. Therapy Code Descriptions/Definitions Functional [place] Measure: 0=Not Assessed/NA 4=Minimal Assistance 1=Total Assistance 5=Supervision or Setup 2=Maximal Assistance 6=Modified [place] 3=Moderate Assistance 7=Complete IndependenceSCALE: Activities may be completed with or without assistive devices. 1-Hoqzcjfzex-nplcivs completes the activity by him/herself with no assistance from a helper. 5-Set-up or Clean-up Assistance-helper sets up or cleans up; patient completes activity. [place] assists only prior to or following the activity. 4-Supervision or Touching Assistance-helper provides verbal cues and/or touching/steadying and/or contact guard assistance as patient completes activity. Assistance may be provided throughout the activity or intermittently. 3-Partial/Moderate Assistance-helper does LESS THAN HALF the effort. [place] lifts, holds or supports trunk or limbs, but provides less than half the effort. 2-Substantial/Maximal Assistance-helper does MORE THAN HALF the effort. [place] lifts or holds trunk or limbs and provides more than half the effort. 1-Sxayxstzp-clbizs does ALL the effort. Patient does none of the effort to complete the activity. Or, the assistance of 2 or more helpers is required for the patient to complete the activity. If activity was not attempted, code reason: 7-Patient Refused. 9-Not Applicable-not attempted and the patient did not perform the activity before the current illness, exacerbation or injury. 10-Not Attempted due to Environmental Limitations-(lack of equipment, weather restraints, etc.). 88-Not Attempted due to Medical Conditions or Safety Concerns. Oral Hygiene (QC): 7 (Pt refused) Bathing Location: L Arm, R Arm, L Upper Leg, R Upper Leg, L Lower Leg (including foot), R Lower Leg (including foot), Chest, Abdomen, Buttocks, Perineal Area Shower/Bathe Self (QC): 5 (SBA due to instability with balance) Upper Body Dressing (QC): 6 (Pt don/dof shirt Independently ) Lower Body Dressing (QC): 3 On/Off Footwear: 3 (SBA threading pants, underwear. Min A hiking over hips using FWW for stability.) Toileting Hygiene (QC): 6 (Pt independent in don/doffing socks and shoes) Other Treatment Pt did not demonstrate any visual field cut during visual scanning activities. Pt able to work L to R and top to bottom to find specified shapes and letters. After therapy, pt sitting in recliner with call light/phone in reach. All needs met in room. Education OT Patient Education: Correct positioning, Safety issues, Transfer techniques Teaching Recipient: Patient Teaching Methods: Demonstration, Discussion Response to Teaching: Verbalize Understanding, Return Demonstration, Reinforcement Needed OT Short Term Goals Short Term Goals Time Frame: Jul 11, 2021 Eatin Oral hygiene: 4 Toileting hygiene: 4 Shower/bathe self: 4 Upper body dressin Lower body dressin Putting on/taking off footwear: 3 OT Case Briefer Goals Longterm Goals Time Frame: Jul 18, 2021 Eating (QC): 6 Oral Hygiene (QC): 6 Toileting Hygiene (QC): 6 Shower/Bathe Self (QC): 5 Upper Body Dressing (QC): 6 Lower Body Dressing (QC): 5 On/Off Footwear (QC): 6 Additional Goals: 1-Demonstrate ADL Tasks, 2-Verbalize Understanding, 3- ImproveStrength/Navya 1=Demonstrate adherence to instructed precautions during ADL tasks. 2=Patient will verbalize/demonstrate understanding of assistive devices/modifications for ADL. 3=Patient will improve strength/tolerance for activity to enable patient to perform ADL's. OT Education/Plan Problem List/Assessment Assessment: Decreased Safety Aware, Impaired Funct Balance, Impaired Self-Care Skills, Visual-Perceptual Deficit Discharge Recommendations Plan/Recommendations: Continue POC Treatment Plan/Plan of Care Patient would benefit from OT for education, treatment and training to promote independence in ADL's, mobility, safety and/or upper extremity function for ADL's. Plan of Care: ADL Retraining, Functional Mobility, Group Exercise/Act as Ind, UE Funct Exercise/Act Treatment Duration: Jul 18, 2021 Frequency: At least 5 of 7 days/Wk (IRF) Estimated Hrs Per Day: 1.5 hours per day Agreement: Yes Rehab Potential: Fair Time/GCodes Start Time: 10:00 Stop Time: 11:00 Total Time Billed (hr/min): 60 Billed Treatment Time 1 Visit- ADL 3 (45 min) FA 1 (15 min) TIFFANIE SOTELO Jul 10, 2021 11:13
--- NOTE | 2021-07-10 14:01 | Physical Therapy Daily Note ---
PT Daily Note-Current Subjective Pt in recliner w/ family in room upon arrival and agrees to PT. Pt has no c/o pain or dizziness at this time. Mental Status Patient Orientation: Person, Place, Situation Transfers SCALE: Activities may be completed with or without assistive devices. 4-Rulxjqtbrh-joevdgw completes the activity by him/herself with no assistance from a helper. 5-Set-up or Clean-up Assistance-helper sets up or cleans up; patient completes activity. [place] assists only prior to or following the activity. 4-Supervision or Touching Assistance-helper provides verbal cues and/or touching/steadying and/or contact guard assistance as patient completes activity. Assistance may be provided throughout the activity or intermittently. 3-Partial/Moderate Assistance-helper does LESS THAN HALF the effort. [place] lifts, holds or supports trunk or limbs, but provides less than half the effort. 2-Substantial/Maximal Assistance-helper does MORE THAN HALF the effort. [place] lifts or holds trunk or limbs and provides more than half the effort. 9-Admaugulo-cduqef does ALL the effort. Patient does none of the effort to complete the activity. Or, the assistance of 2 or more helpers is required for the patient to complete the activity. If activity was not attempted, code reason: 7-Patient Refused. 9-Not Applicable-not attempted and the patient did not perform the activity before the current illness, exacerbation or injury. 10-Not Attempted due to Environmental Limitations-(lack of equipment, weather restraints, etc.). 88-Not Attempted due to Medical Conditions or Safety Concerns. Sit to Stand (QC): 3 Gait Training Does the Patient Walk?: Yes Distance: 200' x2 Walk 10 feet (QC): 3 Walk 50 ft with 2 Turns(QC): 3 Walk 150 ft (QC): 3 Gait Persons Needed: 1 Gait Assistive Device: FWW Pt had more steady gait in pm tx. Pt had slow, steady pace w/ wide ALEKSANDR. Pt used lines on ground to keep wider ALEKSANDR and to keep from veering to R side. With turns VC given to move R LE before L LE d/t the pt moving L LE first and stepping on R LE Exercises NuStep Minutes: 5 NuStep Workload: 4 Treatments Pt sit to stand from recliner and amb 200' x2 on ARU w/ FWW and Nafisa. Pt enters therapy gym and completes NuStep on WL of 4 for 5 minutes to increase strength and endurance, and to improve coordination in UE and LE. Pt then amb back to room and returns to recliner, pt left with all needs met and call light in hand. Assessment Current Status: Good Progress With slower gait pace, pt more steady. Pt requires frequent rest breaks PT Detention Goals Hose Tubing Backer Goals PT Detention Goals Time Frame: Jul 18, 2021 Roll Left & Right (QC): 5 Sit to Lying (QC): 5 Lying-Sitting on Side/Bed(QC): 5 Sit to Stand (QC): 5 Chair/Gvo-ba-Msayt Xfer(QC): 5 Toilet Transfer (QC): 5 Car Transfer (QC): 55 Does the Patient Walk: Yes Walk 10 feet (QC): 5 Walk 50ft with 2 Turns (QC): 5 Walk 150 ft (QC): 5 Walking 10ft on Uneven Surface: 5 1 Step (curb) (QC): 5 4 Steps (QC): 5 12 Steps (QC): 5 Picking up an Object (QC): 5 Does the Pt use WC or Scooter?: No Wheel 50 feet with 2 turns (QC: 9 Wheel 150 feet: 9 PT Plan Problem List Problem List: Safety, Balance, Gait, Transfer Treatment/Plan Treatment Plan: Continue Plan of Care Treatment Plan: Bed Mobility, Concurrent Therapy, Education, Functional Activity Navya, Functional Strength, Group Therapy, Gait, Safety, Therapeutic Exercise, Transfers Treatment Duration: Jul 18, 2021 Frequency: At least 5 of 7 days/Wk (IRF) Estimated Hrs Per Day: 1.5 hours per day Patient and/or Family Agrees t: Yes Safety Risks/Education Patient Education: Gait Training, Transfer Techniques, Correct Positioning, Safety Issues Teaching Recipient: Patient Teaching Methods: Demonstration, Discussion Response to Teaching: Verbalize Understanding, Return Demonstration Time/GCodes Time In: 1330 Time Out: 1400 Total Billed Treatment Time: 30 Total Billed Treatment 1, GT, DEA BUSTILLOS OPERATIONS TEAM LEADER Jul 10, 2021 14:01
--- NOTE | 2021-07-10 14:14 | Occupational Ther Daily Note ---
OT Current Status-Daily Note Subjective Pt sitting in recliner, alert. No c/o pain. Pt agrees to therapy. Mental Status/Objective Patient Orientation: Person, Place, Time, Situation Attachments: IV ADL-Treatment Therapy Code Descriptions/Definitions Functional [place] Measure: 0=Not Assessed/NA 4=Minimal Assistance 1=Total Assistance 5=Supervision or Setup 2=Maximal Assistance 6=Modified [place] 3=Moderate Assistance 7=Complete IndependenceSCALE: Activities may be completed with or without assistive devices. 8-Fraesijnlu-mypbckm completes the activity by him/herself with no assistance from a helper. 5-Set-up or Clean-up Assistance-helper sets up or cleans up; patient completes activity. [place] assists only prior to or following the activity. 4-Supervision or Touching Assistance-helper provides verbal cues and/or touching/steadying and/or contact guard assistance as patient completes activity. Assistance may be provided throughout the activity or intermittently. 3-Partial/Moderate Assistance-helper does LESS THAN HALF the effort. [place] lift s, holds or supports trunk or limbs, but provides less than half the effort. 2-Substantial/Maximal Assistance-helper does MORE THAN HALF the effort. [place] lifts or holds trunk or limbs and provides more than half the effort. 3-Ubsabrsra-lnhcpl does ALL the effort. Patient does none of the effort to complete the activity. Or, the assistance of 2 or more helpers is required for the patient to complete the activity. If activity was not attempted, code reason: 7-Patient Refused. 9-Not Applicable-not attempted and the patient did not perform the activity before the current illness, exacerbation or injury. 10-Not Attempted due to Environmental Limitations-(lack of equipment, weather restraints, etc.). 88-Not Attempted due to Medical Conditions or Safety Concerns. Other Treatment Pt participated in therapeutic exercise while seated in chair. Pt engaged in resistive exercise using green theraband (medium) to strengthen B UE and increase activity tolerance for ADL tasks. Pt engaged in 10 reps 2 sets of each exercise: B bicep curls, B tricep extensions, B horizontal shoulder abduction, B internal/external rotation. Skilled instruction for correct technique and VC required for pt to decrease pace, educated on pursed lip breathing with pt giv ing good return on instructions. Pt engaged in pivot transfer task to improve safety awareness and prevent a fall event. Pt sit-> stand from recliner using FWW for stability CGA. Pt ambulated to shower bench CGA using FWW. VC x 3 and PC x 2 required on hand placement and body mechanics to safely complete task of transfer using grab bars and FWW for support CGA. After session, pt in recliner with call light/phone within reach. All needs met in room. Education OT Patient Education: Correct positioning, Safety issues, Transfer techniques Teaching Recipient: Patient Teaching Methods: Demonstration, Discussion Response to Teaching: Verbalize Understanding, Return Demonstration OT Short Term Goals Short Term Goals Time Frame: Jul 11, 2021 Eatin Oral hygiene: 4 Toileting hygiene: 4 Shower/bathe self: 4 Upper body dressin Lower body dressin Putting on/taking off footwear: 3 OT Metal Stamping Machine Operator Goals Metal Stamping Machine Operator Goals Time Frame: Jul 18, 2021 Eating (QC): 6 Oral Hygiene (QC): 6 Toileting Hygiene (QC): 6 Shower/Bathe Self (QC): 5 Upper Body Dressing (QC): 6 Lower Body Dressing (QC): 5 On/Off Footwear (QC): 6 Additional Goals: 1-Demonstrate ADL Tasks, 2-Verbalize Understanding, 3- ImproveStrength/Navya 1=Demonstrate adherence to instructed precautions during ADL tasks. 2=Patient will verbalize/demonstrate understanding of assistive devices/modifications for ADL. 3=Patient will improve strength/tolerance for activity to enable patient to perform ADL's. OT Education/Plan Problem List/Assessment Assessment: Decreased Safety Aware, Decreased UE Strength, Impaired Funct Balance Discharge Recommendations Plan/Recommendations: Continue POC Treatment Plan/Plan of Care Patient would benefit from OT for education, treatment and training to promote independence in ADL's, mobility, safety and/or upper extremity function for ADL's. Plan of Care: ADL Retraining, Functional Mobility, Group Exercise/Act as Ind, UE Funct Exercise/Act Treatment Duration: Jul 18, 2021 Frequency: At least 5 of 7 days/Wk (IRF) Estimated Hrs Per Day: 1.5 hours per day Agreement: Yes Rehab Potential: Fair Time/GCodes Start Time: 13:00 Stop Time: 13:30 Total Time Billed (hr/min): 30 Billed Treatment Time 1 Visit- Ex (15 min) FA (15 min) TIFFANIE SOTELO Jul 10, 2021 14:14
[2021-07-10 20:00] VITALS: BP 163/74
[2021-07-10] MEDS: MIRTAZAPINE 15 MG (REMERON) TAB PO SCH (21:16)
[2021-07-10] MEDS: MELATONIN 3 MG TABLET PO SCH (21:16)
[2021-07-11] MEDS: inSUlin ASPART (NovoLOG) 1 UNIT/0.01 ML (CHARGE PER UNIT) SC SCH ×4 (06:00→21:44)
[2021-07-11] MEDS: CYANOCOBALAMIN 1,000 MCG (VITAMIN B-12) TABLET PO SCH (06:32)
[2021-07-11 07:30] VITALS: BP 163/74
[2021-07-11] MEDS: cloNIDine 0.1 MG (CATAPRES) TAB PO SCH ×3 (07:45→21:43)
[2021-07-11] MEDS: ASPIRIN E.C. 325 MG (ECOTRIN) TABLET PO SCH (07:45)
[2021-07-11] MEDS: doxAzosin 1 MG (CARDURA) TAB PO SCH ×2 (07:46→21:43)
[2021-07-11] MEDS: PANTOPRAZOLE 40 MG (PROTONIX) TAB PO SCH (07:46)
[2021-07-11] MEDS: amLODIPine 5 MG (NORVASC) TAB PO SCH ×2 (07:46→21:43)
[2021-07-11] MEDS: hydrALAZINE (APRESOLINE) 25 MG TAB PO SCH ×3 (07:46→21:44)
[2021-07-11] MEDS: MECLIZINE 25 MG (ANTIVERT) TAB PO SCH ×3 (07:46→21:43)
[2021-07-11] MEDS: SODIUM BICARBONATE 650 MG TABLET (NON-FORMULARY) PO SCH ×2 (07:46→21:44)
[2021-07-11] MEDS: IRON SUCROSE 200 MG/10 ML (VENOFER) VIAL IV SCH (07:46)
--- NOTE | 2021-07-11 10:44 | Physical Therapy Daily Note ---
PT Daily Note-Current Subjective Pt in bed, agreeable. Denies pain. Pain Numeric Pain Scale: 0-No Pain Location: No Pain Reported Mental Status Patient Orientation: Person, Place, Time, Situation Transfers SCALE: Activities may be completed with or without assistive devices. 7-Wkjcsyliek-rpsiwzk completes the activity by him/herself with no assistance from a helper. 5-Set-up or Clean-up Assistance-helper sets up or cleans up; patient completes activity. [place] assists only prior to or following the activity. 4-Supervision or Touching Assistance-helper provides verbal cues and/or to uching/steadying and/or contact guard assistance as patient completes activity. Assistance may be provided throughout the activity or intermittently. 3-Partial/Moderate Assistance-helper does LESS THAN HALF the effort. [place] lifts, holds or supports trunk or limbs, but provides less than half the effort. 2-Substantial/Maximal Assistance-helper does MORE THAN HALF the effort. [place] lifts or holds trunk or limbs and provides more than half the effort. 6-Apmaavcsk-eimmiv does ALL the effort. Patient does none of the effort to complete the activity. Or, the assistance of 2 or more helpers is required for the patient to complete the activity. If activity was not attempted, code reason: 7-Patient Refused. 9-Not Applicable-not attempted and the patient did not perform the activity before the current illness, exacerbation or injury. 10-Not Attempted due to Environmental Limitations-(lack of equipment, weather restraints, etc.). 88-Not Attempted due to Medical Conditions or Safety Concerns. Lying to Sitting/Side of Bed(Q: 6 Sit to Stand (QC): 4 Weight Bearing Right Lower Extremity: Right Full Weight Bearing Left Lower Extremity: Left Full Weight Bearing Gait Training Does the Patient Walk?: Yes Distance: 250 Walk 10 feet (QC): 3 Walk 50 ft with 2 Turns(QC): 3 Walk 150 ft (QC): 3 Gait Persons Needed: 1 Gait Assistive Device: FWW Pt ambulates with moderate pace, CGA-min A x 1 for balance with gait. Pt self correcting ALEKSANDR and placement within walker without VCS. With turning to (R), Pt demonstrates (R) lean; Pt attempting to correct (I) but requires CGA-Min A x 1 for balance. Returned to up in recliner with all needs met. Treatments Gait training with FWW. Assessment Current Status: Good Progress Pt tolerated well. Good awareness of ALEKSANDR, position in walker, and (R) lean, attempting to self correct. PT Retail Team Member Goals Detention Goals PT Retail Team Member Goals Time Frame: Jul 18, 2021 Roll Left & Right (QC): 5 Sit to Lying (QC): 5 Lying-Sitting on Side/Bed(QC): 5 Sit to Stand (QC): 5 Chair/Sjc-qd-Wgjyy Xfer(QC): 5 Toilet Transfer (QC): 5 Car Transfer (QC): 55 Does the Patient Walk: Yes Walk 10 feet (QC): 5 Walk 50ft with 2 Turns (QC): 5 Walk 150 ft (QC): 5 Walking 10ft on Uneven Surface: 5 1 Step (curb) (QC): 5 4 Steps (QC): 5 12 Steps (QC): 5 Picking up an Object (QC): 5 Does the Pt use WC or Scooter?: No Wheel 50 feet with 2 turns (QC: 9 Wheel 150 feet: 9 PT Plan Problem List Problem List: Activity Tolerance, Functional Strength, Safety, Balance, Gait, Transfer, Bed Mobility Treatment/Plan Treatment Plan: Continue Plan of Care Treatment Plan: Bed Mobility, Concurrent Therapy, Education, Functional Activity Navya, Functional Strength, Group Therapy, Gait, Safety, Therapeutic Exercise, Transfers Treatment Duration: Jul 18, 2021 Frequency: At least 5 of 7 days/Wk (IRF) Estimated Hrs Per Day: 1.5 hours per day Patient and/or Family Agrees t: Yes Time/GCodes Time In: 1028 Time Out: 1038 Total Billed Treatment Time: 10 Total Billed Treatment 1, GT x 10' OSIRIS LUCIA DPT Jul 11, 2021 10:44
--- NOTE | 2021-07-11 12:35 | PM&R Progress Note ---
Subjective HPI/CC On Admission Date Seen by Provider: Jul 11, 2021 Time Seen by Provider: 12:40 Subjective/Events-last exam 07/11/2021: Patient doing well Less dizzy Blood pressure much better Check meds and labs No falls 07/10/2021: Dizziness improved Youngest son at the bedside Blood pressure still high Potassium 4.9 we will stop Kayexalate Stopping losartan due to hyperkalemia Hemoglobin the same at 7.4 07/09/2021: Patient dramatically improved at bedside Sugar was 95 Reviewed blood pressure trend and will adjust medications again Checking labs tomorrow Kayexalate maintained although loose stools occur that is how hyperkalemia is resolved Not eating bananas anymore 07/08/2021: Patient doing really well Received erythropoietin yesterday Appreciate Dr. Cheng Taking Kayexalate Taking sodium bicarb tablets Monitor closely Dizziness Is improving Impulsive Pursuing disability 07/07/2021: Patient doing well Blood pressure very resistant so adding meds Consulting Dr. Cheng for iron deficiency and Procrit request Starting sodium bicarb Starting Kayexalate Had complete bowel evacuation this morning 07/06/2021: Pt doing okay Enema was done yesterday Laxatives will be given No dizziness if he lays in bed BP 180s so initiated Norvasc of 5mg twice daily and changed Hydralazine to 50 TID and Clonidine TID 07/05/2021: Patient doing well No concerns Bowel evacuation in process Maintained on laxatives No pain is reported We will start an IV iron infusion and vitamin B12 07/04/2021: Patient settling in well No BM yet only a few things that he is passed that are hard Continue on laxatives Creatinine 4.0 Hemoglobin 7.4 which is chronic No signs of bleeding Check meds and labs Therapy working with him Review of Systems General: Fatigue, Malaise, Other (Dizziness) Neurological: Weakness, Incoordination Objective Exam Vital Signs Vital Signs Date Time Temp Pulse Resp B/P (MAP) Pulse Ox O2 Delivery O2 Flow Rate FiO2 07/11/21 21:45 Room Air 07/11/21 19:55 36.8 82 18 148/65 (92) 98 Capillary Refill : General Appearance: No Apparent Distress, WD/WN, Chronically ill HEENT: PERRL/EOMI, Normal ENT Inspection, Pharynx Normal Neck: Full Range of Motion, Normal Inspection, Non Tender, Supple, Carotid Bruit Respiratory: Chest Non Tender, Lungs Clear, Normal Breath Sounds, No Accessory Muscle Use, No Respiratory Distress Cardiovascular: Regular Rate, Rhythm, No Edema, No Gallop, No JVD, No Murmur, Normal Peripheral Pulses Gastrointestinal: Normal Bowel Sounds, No Organomegaly, No Pulsatile Mass, Non Tender, Soft Back: Normal Inspection, No CVA Tenderness, No Vertebral Tenderness Extremity: Normal Capillary Refill, Normal Inspection, Normal Range of Motion, Non Tender, No Calf Tenderness, No Pedal Edema Neurologic/Psychiatric: Alert, Oriented x3, No Motor/Sensory Deficits, staffing and scheduling coordinator II- XII Norm as Tested, Abnormal Gait, Depressed Affect, Motor Weakness (generalized 3/5) Skin: Normal Color, Warm/Dry Lymphatic: No Adenopathy Results/Procedures Lab Patient resulted labs reviewed. FIM Transfers Therapy Code Descriptions/Definitions Functional [place] Measure: 0=Not Assessed/NA 4=Minimal Assistance 1=Total Assistance 5=Supervision or Setup 2=Maximal Assistance 6=Modified [place] 3=Moderate Assistance 7=Complete IndependenceSCALE: Activities may be completed with or without assistive devices. 9-Koqffvvabw-zhlladv completes the activity by him/herself with no assistance from a helper. 5-Set-up or Clean-up Assistance-helper sets up or cleans up; patient completes activity. [place] assists only prior to or following the activity. 4-Supervision or Touching Assistance-helper provides verbal cues and/or touching/steadying and/or contact guard assistance as patient completes ac tivity. Assistance may be provided throughout the activity or intermittently. 3-Partial/Moderate Assistance-helper does LESS THAN HALF the effort. [place] lifts, holds or supports trunk or limbs, but provides less than half the effort. 2-Substantial/Maximal Assistance-helper does MORE THAN HALF the effort. [place] lifts or holds trunk or limbs and provides more than half the effort. 8-Xqlvodcyg-udmpub does ALL the effort. Patient does none of the effort to complete the activity. Or, the assistance of 2 or more helpers is required for the patient to complete the activity. If activity was not attempted, code reason: 7-Patient Refused. 9-Not Applicable-not attempted and the patient did not perform the activity before the current illness, exacerbation or injury. 10-Not Attempted due to Environmental Limitations-(lack of equipment, weather restraints, etc.). 88-Not Attempted due to Medical Conditions or Safety Concerns. Roll Left to Right (QC): 4 Sit to Lying (QC): 4 Sit to Stand (QC): 4 Chair/Znl-ij-Mdjqt Xfer(QC): 3 Car Transfer (QC): 2 Gait Training Does the Patient Walk?: Yes Distance: 250 Walk 10 feet (QC): 3 Walk 50 ft with 2 Turns(QC): 3 Walk 150 ft (QC): 3 Walking 10ft/uneven surface-QC: 2 Gait Persons Needed: 1 Gait Assistive Device: FWW Wheelchair Training Does the Pt Use a Wheelchair?: No Wheel 50 ft with 2 turns (QC): 9 Wheel 150 ft (QC): 9 Stair Training #of Steps: 1 1 Step (curb) (QC): 2 4 Steps (QC): 88 12 Steps (QC): 88 Balance Picking up an Object (QC): 1 ADL-Treatment Eating (QC): 6 Oral Hygiene (QC): 7 (Pt refused) Bathing Location: L Arm, R Arm, L Upper Leg, R Upper Leg, L Lower Leg (including foot), R Lower Leg (including foot), Chest, Abdomen, Buttocks, Perine al Area Shower/Bathe Self (QC): 5 (SBA due to instability with balance) Upper Body Dressing (QC): 6 (Pt don/dof shirt Independently ) Lower Body Dressing (QC): 3 On/Off Footwear (QC): 3 (SBA threading pants, underwear. 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 MACK for Procrit request 07/08/2021: Status post with erythropoietin Continue Kayexalate Continue sodium bicarb 07/09/2021: Checking labs tomorrow Monitor blood pressure 07/10/2021: Stop losartan Stop Kayexalate Continue iron infusions 07/11/2021: Supportive care Blood pressure management (1) CVA (cerebral vascular accident) MICHELLE ABBASI DO Jul 11, 2021 12:35
[2021-07-11] MEDS: SENNA W/DOCUSATE (SENOKOT S) TABLET PO SCH ×3 (12:45→22:43)
[2021-07-11] MEDS: DOCUSATE SODIUM 100 MG (COLACE) CAP PO SCH ×2 (12:45→21:43)
[2021-07-11] MEDS: polyethylene glycoL POWDER 17 GM (MIRALAX) PACK PO SCH ×2 (12:45→21:45)
[2021-07-11 19:55] VITALS: BP 148/65
[2021-07-11] MEDS: MIRTAZAPINE 15 MG (REMERON) TAB PO SCH (21:43)
[2021-07-11] MEDS: MELATONIN 3 MG TABLET PO SCH (21:44)
[2021-07-12] MEDS: inSUlin ASPART (NovoLOG) 1 UNIT/0.01 ML (CHARGE PER UNIT) SC SCH ×4 (05:29→21:26)
[2021-07-12] MEDS: CYANOCOBALAMIN 1,000 MCG (VITAMIN B-12) TABLET PO SCH (06:39)
--- NOTE | 2021-07-12 07:14 | PM&R Progress Note ---
Subjective HPI/CC On Admission Date Seen by Provider: Jul 12, 2021 Time Seen by Provider: 12:30 Subjective/Events-last exam 07/12/2021: Improved dizziness Eating better Check meds and labs at bedside 07/11/2021: Patient doing well Less dizzy Blood pressure much better Check meds and labs No falls 07/10/2021: Dizziness improved Youngest son at the bedside Blood pressure still high Potassium 4.9 we will stop Kayexalate Stopping losartan due to hyperkalemia Hemoglobin the same at 7.4 07/09/2021: Patient dramatically improved at bedside Sugar was 95 Reviewed blood pressure trend and will adjust medications again Checking labs tomorrow Kayexalate maintained although loose stools occur that is how hyperkalemia is resolved Not eating bananas anymore 07/08/2021: Patient doing really well Received erythropoietin yesterday Appreciate Dr. Cheng Taking Kayexalate Taking sodium bicarb tablets Monitor closely Dizziness Is improving Impulsive Pursuing disability 07/07/2021: Patient doing well Blood pressure very resistant so adding meds Consulting Dr. Cheng for iron deficiency and Procrit request Starting sodium bicarb Starting Kayexalate Had complete bowel evacuation this morning 07/06/2021: Pt doing okay Enema was done yesterday Laxatives will be given No dizziness if he lays in bed BP 180s so initiated Norvasc of 5mg twice daily and changed Hydralazine to 50 TID and Clonidine TID 07/05/2021: Patient doing well No concerns Bowel evacuation in process Maintained on laxatives No pain is reported We will start an IV iron infusion and vitamin B12 07/04/2021: Patient settling in well No BM yet only a few things that he is passed that are hard Continue on laxatives Creatinine 4.0 Hemoglobin 7.4 which is chronic No signs of bleeding Check meds and labs Therapy working with him Review of Systems General: Fatigue, Malaise Neurological: Weakness, Incoordination Objective Exam Vital Signs Vital Signs Date Time Temp Pulse Resp B/P (MAP) Pulse Ox O2 Delivery O2 Flow Rate FiO2 07/12/21 21:26 Room Air 07/12/21 19:41 36.3 87 19 159/72 (101) 97 Capillary Refill : General Appearance: No Apparent Distress, WD/WN, Chronically ill HEENT: PERRL/EOMI, Normal ENT Inspection, Pharynx Normal Neck: Full Range of Motion, Normal Inspection, Non Tender, Supple, Carotid Bruit Respiratory: Chest Non Tender, Lungs Clear, Normal Breath Sounds, No Accessory Muscle Use, No Respiratory Distress Cardiovascular: Regular Rate, Rhythm, No Edema, No Gallop, No JVD, No Murmur, Normal Peripheral Pulses Gastrointestinal: Normal Bowel Sounds, No Organomegaly, No Pulsatile Mass, Non Tender, Soft Back: Normal Inspection, No CVA Tenderness, No Vertebral Tenderness Extremity: Normal Capillary Refill, Normal Inspection, Normal Range of Motion, Non Tender, No Calf Tenderness, No Pedal Edema Neurologic/Psychiatric: Alert, Oriented x3, No Motor/Sensory Deficits, commercial finance analyst II- XII Norm as Tested, Abnormal Gait, Depressed Affect, Motor Weakness (generalized 3/5) Skin: Normal Color, Warm/Dry Lymphatic: No Adenopathy Results/Procedures Lab Patient resulted labs reviewed. FIM Transfers Therapy Code Descriptions/Definitions Functional [place] Measure: 0=Not Assessed/NA 4=Minimal Assistance 1=Total Assistance 5=Supervision or Setup 2=Maximal Assistance 6=Modified [place] 3=Moderate Assistance 7=Complete IndependenceSCALE: Activities may be completed with or without assistive devices. 0-Xxcdgdtfjs-qdrrcng completes the activity by him/herself with no assistance from a helper. 5-Set-up or Clean-up Assistance-helper sets up or cleans up; patient completes activity. [place] assists only prior to or following the activity. 4-Supervision or Touching Assistance-helper provides verbal cues and/or touching/steadying and/or contact guard assistance as patient completes activity. Assistance may be provided throughout the activity or intermittently. 3-Partial/Moderate Assistance-helper does LESS THAN HALF the effort. [place] lifts, holds or supports trunk or limbs, but provides less than half the effort. 2-Substantial/Maximal Assistance-helper does MORE THAN HALF the effort. [place] lifts or holds trunk or limbs and provides more than half the effort. 7-Qbripensh-quooeg does ALL the effort. Patient does none of the effort to complete the activity. Or, the assistance of 2 or more helpers is required for the patient to complete the activity. If activity was not attempted, code reason: 7-Patient Refused. 9-Not Applicable-not attempted and the patient did not perform the activity before the current illness, exacerbation or injury. 10-Not Attempted due to Environmental Limitations-(lack of equipment, weather restraints, etc.). 88-Not Attempted due to Medical Conditions or Safety Concerns. Roll Left to Right (QC): 4 Sit to Lying (QC): 4 Sit to Stand (QC): 4 Chair/Eup-mz-Jgrat Xfer(QC): 3 Car Transfer (QC): 2 Gait Training Does the Patient Walk?: Yes Distance: 250 Walk 10 feet (QC): 3 Walk 50 ft with 2 Turns(QC): 3 Walk 150 ft (QC): 3 Walking 10ft/uneven surface-QC: 2 Gait Persons Needed: 1 Gait Assistive Device: FWW Wheelchair Training Does the Pt Use a Wheelchair?: No Wheel 50 ft with 2 turns (QC): 9 Wheel 150 ft (QC): 9 Stair Training #of Steps: 1 1 Step (curb) (QC): 2 4 Steps (QC): 88 12 Steps (QC): 88 Balance Picking up an Object (QC): 1 ADL-Treatment Eating (QC): 6 Oral Hygiene (QC): 7 (Pt refused) Bathing Location: L Arm, R Arm, L Upper Leg, R Upper Leg, L Lower Leg (including foot), R Lower Leg (including foot), Chest, Abdomen, Buttocks, Perineal Area Shower/Bathe Self (QC): 5 (SBA due to instability with balance) Upper Body Dressing (QC): 6 (Pt don/dof shirt Independently ) Lower Body Dressing (QC): 3 On/Off Footwear (QC): 3 (SBA threading pants, underwear. 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 MACK for Procrit request 07/08/2021: Status post with erythropoietin Continue Kayexalate Continue sodium bicarb 07/09/2021: Checking labs tomorrow Monitor blood pressure 07/10/2021: Stop losartan Stop Kayexalate Continue iron infusions 07/11/2021: Supportive care Blood pressure management 07/12/2021: Monitor hemoglobin Monitor creatinine Blood pressure improved (1) CVA (cerebral vascular accident) MICHELLE ABBASI DO Jul 12, 2021 07:14
[2021-07-12 07:30] VITALS: BP 159/72
[2021-07-12] MEDS: polyethylene glycoL POWDER 17 GM (MIRALAX) PACK PO SCH ×2 (08:49→21:23)
[2021-07-12] MEDS: SODIUM BICARBONATE 650 MG TABLET (NON-FORMULARY) PO SCH ×2 (08:50→21:19)
[2021-07-12] MEDS: DOCUSATE SODIUM 100 MG (COLACE) CAP PO SCH ×2 (08:50→21:23)
[2021-07-12] MEDS: ASPIRIN E.C. 325 MG (ECOTRIN) TABLET PO SCH (08:50)
[2021-07-12] MEDS: doxAzosin 1 MG (CARDURA) TAB PO SCH ×2 (08:51→21:19)
[2021-07-12] MEDS: MECLIZINE 25 MG (ANTIVERT) TAB PO SCH ×3 (08:51→21:19)
[2021-07-12] MEDS: cloNIDine 0.1 MG (CATAPRES) TAB PO SCH ×3 (08:51→21:19)
[2021-07-12] MEDS: PANTOPRAZOLE 40 MG (PROTONIX) TAB PO SCH (08:51)
[2021-07-12] MEDS: hydrALAZINE (APRESOLINE) 25 MG TAB PO SCH ×3 (08:51→21:18)
[2021-07-12] MEDS: amLODIPine 5 MG (NORVASC) TAB PO SCH ×2 (08:52→21:19)
[2021-07-12 13:36] VITALS: BP 152/68
[2021-07-12 19:41] VITALS: BP 159/72
[2021-07-12] MEDS: MELATONIN 3 MG TABLET PO SCH (21:18)
[2021-07-12] MEDS: MIRTAZAPINE 15 MG (REMERON) TAB PO SCH (21:18)
[2021-07-12] MEDS: SENNA W/DOCUSATE (SENOKOT S) TABLET PO SCH (21:23)
[2021-07-13 05:55] LABS: BASOPHILS # (AUTO) 0.1 10^3/uL (0.0-0.1); BASOPHILS % (AUTO) 1 % (0-10); EOSINOPHILS # (AUTO) 0.4 10^3/uL (0.0-0.3); EOSINOPHILS % (AUTO) 3 % (0-10); HEMATOCRIT 23 % (40-54); HEMOGLOBIN 7.6 g/dL (13.3-17.7); LYMPHOCYTES # (AUTO) 2.3 10^3/uL (1.0-4.0); LYMPHOCYTES % (AUTO) 19 % (12-44); MEAN CORPUSCULAR HEMOGLOBIN 30 pg (25-34); MEAN CORPUSCULAR HGB CONC 33 g/dL (32-36); MEAN CORPUSCULAR VOLUME 91 fL (80-99); MEAN PLATELET VOLUME 9.4 fL (9.0-12.2); MONOCYTES # (AUTO) 0.8 10^3/uL (0.0-1.0); MONOCYTES % (AUTO) 6 % (0-12); NEUTROPHILS # (AUTO) 8.5 10^3/uL (1.8-7.8); NEUTROPHILS % (AUTO) 70 % (42-75); PLATELET COUNT 417 10^3/uL (130-400); WHITE BLOOD COUNT 12.2 10^3/uL (4.3-11.0)
[2021-07-13 06:04] LABS: ALBUMIN 2.8 GM/DL (3.2-4.5)
[2021-07-13 06:05] LABS: POTASSIUM 5.7 MMOL/L (3.6-5.0)
[2021-07-13 06:06] LABS: CALCIUM 7.8 MG/DL (8.5-10.1)
[2021-07-13 06:07] LABS: TOTAL PROTEIN 5.5 GM/DL (6.4-8.2)
[2021-07-13 06:09] LABS: BILIRUBIN,TOTAL 0.2 MG/DL (0.1-1.0)
[2021-07-13] MEDS: inSUlin ASPART (NovoLOG) 1 UNIT/0.01 ML (CHARGE PER UNIT) SC SCH ×4 (06:09→21:13)
[2021-07-13 06:11] LABS: CREATININE SERUM 3.33 MG/DL (0.60-1.30)
[2021-07-13] MEDS: CYANOCOBALAMIN 1,000 MCG (VITAMIN B-12) TABLET PO SCH (06:41)
[2021-07-13 07:37] VITALS: BP 179/79
--- NOTE | 2021-07-13 08:59 | Physical Therapy Daily Note ---
PT Daily Note-Current Subjective Pt in bed upon arrival and agrees to PT. Pt has no c/o pain or dizziness, states he hasn't had dizziness all weekend. Mental Status Patient Orientation: Person, Place, Time, Situation Transfers SCALE: Activities may be completed with or without assistive devices. 4-Qwkdcnkctp-ndtxxyx completes the activity by him/herself with no assistance from a helper. 5-Set-up or Clean-up Assistance-helper sets up or cleans up; patient completes activity. [place] assists only prior to or following the activity. 4-Supervision or Touching Assistance-helper provides verbal cues and/or touching/steadying and/or contact guard assistance as patient completes activity. Assistance may be provided throughout the activity or intermittently. 3-Partial/Moderate Assistance-helper does LESS THAN HALF the effort. [place] lifts, holds or supports trunk or limbs, but provides less than half the effort. 2-Substantial/Maximal Assistance-helper does MORE THAN HALF the effort. [place] lifts or holds trunk or limbs and provides more than half the effort. 9-Hrebzrmtl-aykshr does ALL the effort. Patient does none of the effort to complete the activity. Or, the assistance of 2 or more helpers is required for the patient to complete the activity. If activity was not attempted, code reason: 7-Patient Refused. 9-Not Applicable-not attempted and the patient did not perform the activity before the current illness, exacerbation or injury. 10-Not Attempted due to Environmental Limitations-(lack of equipment, weather restraints, etc.). 88-Not Attempted due to Medical Conditions or Safety Concerns. Sit to Stand (QC): 3 Chair/Ppx-sg-Jszqs Xfer(QC): 3 Weight Bearing Right Lower Extremity: Right Full Weight Bearing Left Lower Extremity: Left Full Weight Bearing Gait Training Does the Patient Walk?: Yes Distance: 250' x2 Walk 10 feet (QC): 3 Walk 50 ft with 2 Turns(QC): 3 Walk 150 ft (QC): 3 Gait Persons Needed: 1 Gait Assistive Device: FWW Pt veers to R side, VC for placement in FWW and to keep wide ALEKSANDR. When amb on line on floor pt more stable. Pt has slow, steady pace today. Exercises Seated Therapy Exercises: Long arc quads (2# weights), Hip abd/add (ball and RTB) Seated Reps: 10 Standing: Hamstring curls, Heel/toe raises, Marching Standing Reps: 10 Treatments Pt sits EOB, sit to stand and amb to bathroom. Pt able to doff/don pants CGA for stability. Pt then amb 250' w/ one seated RB, Nafisa. Pt had slight LOB, but self corrected. Once in therapy gym pt completes Heath Balance Test, scoring 20/56, improving with balance from last weeks test of 17/56. Pt then completes standing ex in // bars, followed by seated ex. Pt amb 250' back to room, left with all needs met in recliner with call light in hand. Assessment Current Status: Good Progress Pt improving balance, endurance, and strength. PT [facility] Goals Power Brake Operator Goals PT [facility] Goals Time Frame: Jul 18, 2021 Roll Left & Right (QC): 5 Sit to Lying (QC): 5 Lying-Sitting on Side/Bed(QC): 5 Sit to Stand (QC): 5 Chair/Ckp-kl-Winsf Xfer(QC): 5 Toilet Transfer (QC): 5 Car Transfer (QC): 55 Does the Patient Walk: Yes Walk 10 feet (QC): 5 Walk 50ft with 2 Turns (QC): 5 Walk 150 ft (QC): 5 Walking 10ft on Uneven Surface: 5 1 Step (curb) (QC): 5 4 Steps (QC): 5 12 Steps (QC): 5 Picking up an Object (QC): 5 Does the Pt use WC or Scooter?: No Wheel 50 feet with 2 turns (QC: 9 Wheel 150 feet: 9 PT Plan Treatment/Plan Treatment Plan: Continue Plan of Care Treatment Plan: Bed Mobility, Concurrent Therapy, Education, Functional Activity [place], Functional Strength, Group Therapy, Gait, Safety, Therapeutic Exercise, Transfers Treatment Duration: Jul 18, 2021 Frequency: At least 5 of 7 days/Wk (IRF) Estimated Hrs Per Day: 1.5 hours per day Patient and/or Family Agrees t: Yes Safety Risks/Education Patient Education: Gait Training, Correct Positioning, Safety Issues Teaching Recipient: Patient Teaching Methods: Demonstration, Discussion Response to Teaching: Verbalize Understanding, Return Demonstration Time/GCodes Time In: 800 Time Out: 900 Total Billed Treatment Time: 60 Total Billed Treatment 1, NM x2, GT, EX DEA RODRIGUEZ SIMULATION TECHNICIAN Jul 13, 2021 08:59
[2021-07-13] MEDS: cloNIDine 0.1 MG (CATAPRES) TAB PO SCH ×3 (09:58→21:33)
[2021-07-13] MEDS: SODIUM BICARBONATE 650 MG TABLET (NON-FORMULARY) PO SCH ×2 (09:58→21:34)
[2021-07-13] MEDS: PANTOPRAZOLE 40 MG (PROTONIX) TAB PO SCH (09:58)
[2021-07-13] MEDS: doxAzosin 1 MG (CARDURA) TAB PO SCH ×2 (09:58→21:34)
[2021-07-13] MEDS: hydrALAZINE (APRESOLINE) 25 MG TAB PO SCH ×3 (09:58→21:33)
[2021-07-13] MEDS: ASPIRIN E.C. 325 MG (ECOTRIN) TABLET PO SCH (09:58)
[2021-07-13] MEDS: MECLIZINE 25 MG (ANTIVERT) TAB PO SCH ×3 (09:58→21:34)
[2021-07-13] MEDS: IRON SUCROSE 200 MG/10 ML (VENOFER) VIAL IV SCH (09:58)
[2021-07-13] MEDS: amLODIPine 5 MG (NORVASC) TAB PO SCH ×2 (09:58→21:35)
[2021-07-13] MEDS: DOCUSATE SODIUM 100 MG (COLACE) CAP PO SCH ×2 (10:05→21:12)
[2021-07-13] MEDS: SENNA W/DOCUSATE (SENOKOT S) TABLET PO SCH ×2 (10:06→21:12)
[2021-07-13] MEDS: polyethylene glycoL POWDER 17 GM (MIRALAX) PACK PO SCH ×2 (10:06→21:12)
--- NOTE | 2021-07-13 10:23 | Occupational Ther Daily Note ---
OT Current Status-Daily Note Subjective Pt sitting in recliner, alert. No c/o pain. Pt agrees to therapy. Mental Status/Objective Patient Orientation: Person, Place, Time, Situation Attachments: IV ADL-Treatment Pt agrees to shower. Pt sit->stand using FWW CGA , ambulated to shower seat in bathroom SBA using FWW. VC on proper hand placement and to slow down. Pt stand to sit using FWW and grab bars. Pt showered SBA using shower bench and grab bars. Pt completed shower sitting on shower bench to cleanse all areas except buttocks then pt stood stabilizing self with grabbars with SBA. After shower, Pt educated on proper hand placement and transfer technique to transfer from FWW to chair. Pt completed UB dressing of shirt while seated independently after set up, LB dressing of underwear and pants SBA to thread over ankles to hike over hips, using FWW for stability when sit->stand. Pt independent after set up in donning shoes and socks while seated. Therapy Code Descriptions/Definitions Functional [place] Measure: 0=Not Assessed/NA 4=Minimal Assistance 1=Total Assistance 5=Supervision or Setup 2=Maximal Assistance 6=Modified [place] 3=Moderate Assistance 7=Complete IndependenceSCALE: Activities may be completed with or without assistive devices. 4-Fyxgvjoppa-krgjrhh completes the activity by him/herself with no assistance from a helper. 5-Set-up or Clean-up Assistance-helper sets up or cleans up; patient completes activity. [place] assists only prior to or following the activity. 4-Supervision or Touching Assistance-helper provides verbal cues and/or touching/steadying and/or contact guard assistance as patient completes activity. Assistance may be provided throughout the activity or intermittently. 3-Partial/Moderate Assistance-helper does LESS THAN HALF the effort. [place] lifts, holds or supports trunk or limbs, but provides less than half the effort. 2-Substantial/Maximal Assistance-helper does MORE THAN HALF the effort. [place] lifts or holds trunk or limbs and provides more than half the effort. 0-Sxswbexif-fvfgul does ALL the effort. Patient does none of the effort to complete the activity. Or, the assistance of 2 or more helpers is required for the patient to complete the activity. If activity was not attempted, code reason: 7-Patient Refused. 9-Not Applicable-not attempted and the patient did not perform the activity before the current illness, exacerbation or injury. 10-Not Attempted due to Environmental Limitations-(lack of equipment, weather restraints, etc.). 88-Not Attempted due to Medical Conditions or Safety Concerns. Oral Hygiene (QC): 4 (SBA while pt stood at sink using countertop for stability) Bathing Location: L Arm, R Arm, L Upper Leg, R Upper Leg, L Lower Leg (including foot), R Lower Leg (including foot), Chest, Abdomen, Buttocks, Perineal Area Shower/Bathe Self (QC): 4 (SBA) Upper Body Dressing (QC): 5 (set up) Lower Body Dressing (QC): 4 (SBA) On/Off Footwear: 5 (Set up) Other Treatment Pt engaged in pivot transfer activity, chair<-> EOB using FWW for stability. VC x 2 and TC given on hand placement and body mechanics. Pt engaged in transfers 5x with fair return on skilled instructions. Will require more skilled i nstructions to become more proficient. After session, pt in recliner with call light/ phone within reach. All needs met in room. Education OT Patient Education: Transfer techniques Teaching Recipient: Patient Teaching Methods: Demonstration, Discussion Response to Teaching: Verbalize Understanding, Return Demonstration, Reinforcement Needed OT Short Term Goals Short Term Goals Time Frame: Jul 11, 2021 Eatin Oral hygiene: 4 Toileting hygiene: 4 Shower/bathe self: 4 Upper body dressin Lower body dressin Putting on/taking off footwear: 3 OT Residential Goals Residential Goals Time Frame: Jul 18, 2021 Eating (QC): 6 Oral Hygiene (QC): 6 Toileting Hygiene (QC): 6 Shower/Bathe Self (QC): 5 Upper Body Dressing (QC): 6 Lower Body Dressing (QC): 5 On/Off Footwear (QC): 6 Additional Goals: 1-Demonstrate ADL Tasks, 2-Verbalize Understanding, 3- ImproveStrength/[place] 1=Demonstrate adherence to instructed precautions during ADL tasks. 2=Patient will verbalize/demonstrate understanding of assistive devices/ modifications for ADL. 3=Patient will improve strength/tolerance for activity to enable patient to perform ADL's. OT Education/Plan Problem List/Assessment Assessment: Decreased Safety Aware, Impaired Funct Balance, Impaired Self-Care Skills Discharge Recommendations Plan/Recommendations: Continue POC Treatment Plan/Plan of Care Patient would benefit from OT for education, treatment and training to promote independence in ADL's, mobility, safety and/or upper extremity function for ADL's. Plan of Care: ADL Retraining, Functional Mobility, Group Exercise/Act as Ind, UE Funct Exercise/Act Treatment Duration: Jul 18, 2021 Frequency: At least 5 of 7 days/Wk (IRF) Estimated Hrs Per Day: 1.5 hours per day Agreement: Yes Rehab Potential: Fair Time/GCodes Start Time: 09:00 Stop Time: 10:00 Total Time Billed (hr/min): 60 Billed Treatment Time 1 Visit- ADL 3 (45 min) FA (15 min) TIFFANIE SOTELO Jul 13, 2021 10:23
--- NOTE | 2021-07-13 10:49 | PM&R Progress Note ---
Subjective HPI/CC On Admission Date Seen by Provider: Jul 13, 2021 Time Seen by Provider: 10:45 Subjective/Events-last exam 07/13/2021: Patient doing well Less dizziness Hemoglobin stable Potassium will need potassium binder 07/12/2021: Improved dizziness Eating better Check meds and labs at bedside 07/11/2021: Patient doing well Less dizzy Blood pressure much better Check meds and labs No falls 07/10/2021: Dizziness improved Youngest son at the bedside Blood pressure still high Potassium 4.9 we will stop Kayexalate Stopping losartan due to hyperkalemia Hemoglobin the same at 7.4 07/09/2021: Patient dramatically improved at bedside Sugar was 95 Reviewed blood pressure trend and will adjust medications again Checking labs tomorrow Kayexalate maintained although loose stools occur that is how hyperkalemia is resolved Not eating bananas anymore 07/08/2021: Patient doing really well Received erythropoietin yesterday Appreciate Dr. Cheng Taking Kayexalate Taking sodium bicarb tablets Monitor closely Dizziness Is improving Impulsive Pursuing disability 07/07/2021: Patient doing well Blood pressure very resistant so adding meds Consulting Dr. Cheng for iron deficiency and Procrit request Starting sodium bicarb Starting Kayexalate Had complete bowel evacuation this morning 07/06/2021: Pt doing okay Enema was done yesterday Laxatives will be given No dizziness if he lays in bed BP 180s so initiated Norvasc of 5mg twice daily and changed Hydralazine to 50 TID and Clonidine TID 07/05/2021: Patient doing well No concerns Bowel evacuation in process Maintained on laxatives No pain is reported We will start an IV iron infusion and vitamin B12 07/04/2021: Patient settling in well No BM yet only a few things that he is passed that are hard Continue on laxatives Creatinine 4.0 Hemoglobin 7.4 which is chronic No signs of bleeding Check meds and labs Therapy working with him Review of Systems General: Fatigue, Malaise Neurological: Weakness, Incoordination Objective Exam Vital Signs Vital Signs Date Time Temp Pulse Resp B/P (MAP) Pulse Ox O2 Delivery O2 Flow Rate FiO2 07/13/21 21:35 Room Air 07/13/21 20:00 37.0 82 20 169/75 (106) 96 Capillary Refill : General Appearance: No Apparent Distress, WD/WN, Chronically ill HEENT: PERRL/EOMI, Normal ENT Inspection, Pharynx Normal Neck: Full Range of Motion, Normal Inspection, Non Tender, Supple, Carotid Bruit Respiratory: Chest Non Tender, Lungs Clear, Normal Breath Sounds, No Accessory Muscle Use, No Respiratory Distress Cardiovascular: Regular Rate, Rhythm, No Edema, No Gallop, No JVD, No Murmur, Normal Peripheral Pulses Gastrointestinal: Normal Bowel Sounds, No Organomegaly, No Pulsatile Mass, Non Tender, Soft Back: Normal Inspection, No CVA Tenderness, No Vertebral Tenderness Extremity: Normal Capillary Refill, Normal Inspection, Normal Range of Motion, Non Tender, No Calf Tenderness, No Pedal Edema Neurologic/Psychiatric: Alert, Oriented x3, No Motor/Sensory Deficits, slackman II- XII Norm as Tested, Abnormal Gait, Depressed Affect, Motor Weakness (generalized 3/5) Skin: Normal Color, Warm/Dry Lymphatic: No Adenopathy Results/Procedures Lab Laboratory Tests 07/13/21 05:34 Patient resulted labs reviewed. FIM Transfers Therapy Code Descriptions/Definitions Functional [place] Measure: 0=Not Assessed/NA 4=Minimal Assistance 1=Total Assistance 5=Supervision or Setup 2=Maximal Assistance 6=Modified [place] 3=Moderate Assistance 7=Complete IndependenceSCALE: Activities may be completed with or without assistive devices. 0-Lwkscxhkqm-qljevlb completes the activity by him/herself with no assistance from a helper. 5-Set-up or Clean-up Assistance-helper sets up or cleans up; patient completes activity. [place] assists only prior to or following the activity. 4-Supervision or Touching Assistance-helper provides verbal cues and/or touching/steadying and/or contact guard assistance as patient completes activity. Assistance may be provided throughout the activity or intermittently. 3-Partial/Moderate Assistance-helper does LESS THAN HALF the effort. [place] lifts, holds or supports trunk or limbs, but provides less than half the effort. 2-Substantial/Maximal Assistance-helper does MORE THAN HALF the effort. [place] lifts or holds trunk or limbs and provides more than half the effort. 5-Yedvmzxcb-kbsufc does ALL the effort. Patient does none of the effort to complete the activity. Or, the assistance of 2 or more helpers is required for the patient to complete the activity. If activity was not attempted, code reason: 7-Patient Refused. 9-Not Applicable-not attempted and the patient did not perform the activity before the current illness, exacerbation or injury. 10-Not Attempted due to Environmental Limitations-(lack of equipment, weather restraints, etc.). 88-Not Attempted due to Medical Conditions or Safety Concerns. Roll Left to Right (QC): 4 Sit to Lying (QC): 4 Sit to Stand (QC): 3 Chair/Kcn-kf-Ncuoc Xfer(QC): 3 Car Transfer (QC): 2 Gait Training Does the Patient Walk?: Yes Distance: 250' x2 Walk 10 feet (QC): 3 Walk 50 ft with 2 Turns(QC): 3 Walk 150 ft (QC): 3 Walking 10ft/uneven surface-QC: 2 Gait Persons Needed: 1 Gait Assistive Device: FWW Wheelchair Training Does the Pt Use a Wheelchair?: No Wheel 50 ft with 2 turns (QC): 9 Wheel 150 ft (QC): 9 Stair Training #of Steps: 1 1 Step (curb) (QC): 2 4 Steps (QC): 88 12 Steps (QC): 88 Balance Picking up an Object (QC): 1 ADL-Treatment Eating (QC): 6 Oral Hygiene (QC): 4 (SBA while pt stood at sink using countertop for stability) Bathing Location: L Arm, R Arm, L Upper Leg, R Upper Leg, L Lower Leg (including foot), R Lower Leg (including foot), Chest, Abdomen, Buttocks, Pe rineal Area Shower/Bathe Self (QC): 4 (SBA) Upper Body Dressing (QC): 5 (set up) Lower Body Dressing (QC): 4 (SBA) On/Off Footwear (QC): 5 (Set up) Toileting Hygiene (QC): 6 (Pt independent in don/doffing socks and shoes) Toilet Transfer (QC): 3 Assessment/Plan Assessment and Plan Assess & Plan/Chief Complaint Assessment: CVA cerebellar type Dizziness Fall risk h/o Back [id number] L2,3,4 CKD (chronic kidney disease) stage 4, GFR 15-29 ml/min Combined form of senile cataract of both eyes Diabetes mellitus High cholesterol Hypertension malignant type 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 MACK for Procrit request 07/08/2021: Status post with erythropoietin Continue Kayexalate Continue sodium bicarb 07/09/2021: Checking labs tomorrow Monitor blood pressure 07/10/2021: Stop losartan Stop Kayexalate Continue iron infusions 07/11/2021: Supportive care Blood pressure management 07/12/2021: Monitor hemoglobin Monitor creatinine Blood pressure improved 07/13/2021: Continue bowel regimen Potassium binder (1) CVA (cerebral vascular accident) MICHELLE ABBASI DO Jul 13, 2021 10:49
[2021-07-13] MEDS: SOD POLYSTERENE 15 GM/60 ML (KAYEXALATE) UNIT DOSE PO SCH (11:39)
[2021-07-13 13:28] VITALS: BP 169/74
--- NOTE | 2021-07-13 13:32 | Occupational Ther Daily Note ---
OT Current Status-Daily Note Subjective Pt was sitting in recliner, alert. No c/o pain. Pt agrees to therapy. Mental Status/Objective Patient Orientation: Person, Place, Time, Situation ADL-Treatment Therapy Code Descriptions/Definitions Functional [place] Measure: 0=Not Assessed/NA 4=Minimal Assistance 1=Total Assistance 5=Supervision or Setup 2=Maximal Assistance 6=Modified [place] 3=Moderate Assistance 7=Complete IndependenceSCALE: Activities may be completed with or without assistive devices. 3-Njjnexmcqw-yxwmmkw completes the activity by him/herself with no assistance from a helper. 5-Set-up or Clean-up Assistance-helper sets up or cleans up; patient completes activity. [place] assists only prior to or following the activity. 4-Supervision or Touching Assistance-helper provides verbal cues and/or touching/steadying and/or contact guard assistance as patient completes activity. Assistance may be provided throughout the activity or intermittently. 3-Partial/Moderate Assistance-helper does LESS THAN HALF the effort. [place] lifts, holds or supports trunk or limbs, but provides less than half the effort. 2-Substantial/Maximal Assistance-helper does MORE THAN HALF the effort. [place] lifts or holds trunk or limbs and provides more than half the effort. 6-Tdzyoecbp-wqzvwe does ALL the effort. Patient does none of the effort to complete the activity. Or, the assistance of 2 or more helpers is required for the patient to complete the activity. If activity was not attempted, code reason: 7-Patient Refused. 9-Not Applicable-not attempted and the patient did not perform the activity before the current illness, exacerbation or injury. 10-Not Attempted due to Environmental Limitations-(lack of equipment, weather restraints, etc.). 88-Not Attempted due to Medical Conditions or Safety Concerns. Other Treatment Pt.sit-stand (VC for hand placement) using FWW for stability SBA, ambulated to therapy gym using FWW CGA. VC x3 and TC on body mechanics when turning corners. Pt completed B UE strengthening using 2# hand weight to increase strength, body awareness and activity tolerance for daily functional skills. Bicep curls, tricep extensions, Chest press and B shldr flex/ext 2 sets 10 reps. Skilled instruction required for correct technique. Pt then completed transfers using FWW with VC for B UE/LE placement when turning to sit on elevated surface. Pt demonstrated progress with transfers, no LOB noted. After therapy, pt sitting in recliner with call light/phone in reach. All needs met in room. OT Short Term Goals Short Term Goals Time Frame: Jul 11, 2021 Eatin Oral hygiene: 4 Toileting hygiene: 4 Shower/bathe self: 4 Upper body dressin Lower body dressin Putting on/taking off footwear: 3 OT Hood Maker Goals Chcf Goals Time Frame: Jul 18, 2021 Eating (QC): 6 Oral Hygiene (QC): 6 Toileting Hygiene (QC): 6 Shower/Bathe Self (QC): 5 Upper Body Dressing (QC): 6 Lower Body Dressing (QC): 5 On/Off Footwear (QC): 6 Additional Goals: 1-Demonstrate ADL Tasks, 2-Verbalize Understanding, 3- ImproveStrength/Navya 1=Demonstrate adherence to instructed precautions during ADL tasks. 2=Patient will verbalize/demonstrate understanding of assistive devices/modifications for ADL. 3=Patient will improve strength/tolerance for activity to enable patient to perform ADL's. OT Education/Plan Problem List/Assessment Assessment: Decreased Activ Tolerance, Decreased Safety Aware, Decreased UE Strength, Impaired Coordination, Impaired Funct Balance Discharge Recommendations Plan/Recommendations: Continue POC Treatment Plan/Plan of Care Patient would benefit from OT for education, treatment and training to promote independence in ADL's, mobility, safety and/or upper extremity function for ADL's. Plan of Care: ADL Retraining, Functional Mobility, Group Exercise/Act as Ind, UE Funct Exercise/Act Treatment Duration: Jul 18, 2021 Frequency: At least 5 of 7 days/Wk (IRF) Estimated Hrs Per Day: 1.5 hours per day Agreement: Yes Rehab Potential: Fair Time/GCodes Start Time: 13:00 Stop Time: 13:30 Total Time Billed (hr/min): 30 Billed Treatment Time 1 visit-EX 1 (15 min) FA 1 (15 min) TIFFANIE SOTELO Jul 13, 2021 13:32
--- NOTE | 2021-07-13 13:57 | Physical Therapy Daily Note ---
PT Daily Note-Current Subjective Pt in recliner upon arrival and agrees to tx. Pt has no c/o pain Mental Status Patient Orientation: Person, Place, Time, Situation Transfers SCALE: Activities may be completed with or without assistive devices. 6-Lcczaxmxqg-ulkfxob completes the activity by him/herself with no assistance from a helper. 5-Set-up or Clean-up Assistance-helper sets up or cleans up; patient completes activity. [place] assists only prior to or following the activity. 4-Supervision or Touching Assistance-helper provides verbal cues and/or touching/steadying and/or contact guard assistance as patient completes activity. Assistance may be provided throughout the activity or intermittently. 3-Partial/Moderate Assistance-helper does LESS THAN HALF the effort. [place] lifts, holds or supports trunk or limbs, but provides less than half the effort. 2-Substantial/Maximal Assistance-helper does MORE THAN HALF the effort. [place] lifts or holds trunk or limbs and provides more than half the effort. 8-Twczxsdme-uyqswe does ALL the effort. Patient does none of the effort to complete the activity. Or, the assistance of 2 or more helpers is required for the patient to complete the activity. If activity was not attempted, code reason: 7-Patient Refused. 9-Not Applicable-not attempted and the patient did not perform the activity before the current illness, exacerbation or injury. 10-Not Attempted due to Environmental Limitations-(lack of equipment, weather restraints, etc.). 88-Not Attempted due to Medical Conditions or Safety Concerns. Sit to Stand (QC): 4 Weight Bearing Right Lower Extremity: Right Full Weight Bearing Left Lower Extremity: Left Full Weight Bearing Gait Training Does the Patient Walk?: Yes Distance: 200', 100' Walk 10 feet (QC): 4 Walk 50 ft with 2 Turns(QC): 4 Walk 150 ft (QC): 4 Gait Persons Needed: 1 Gait Assistive Device: FWW Pt much more stable in pm tx w/o any LOB. Pt able to keep placement in FWW and have wide ALEKSANDR. Exercises NuStep Minutes: 13 NuStep Workload: 4 Treatments Pt sit to stand from recliner and amb 200' on ARU to therapy gym. Pt completes NuStep for 13 minutes at a WL of 4. Pt then amb 100' back to room. Pt returns to recliner and is left with all needs met, call light in hand. Assessment Current Status: Fair Progress Pt more stable in pm and requires less VC for safety PT Demand Generator Manager Goals Correction Goals PT Correction Goals Time Frame: Jul 18, 2021 Roll Left & Right (QC): 5 Sit to Lying (QC): 5 Lying-Sitting on Side/Bed(QC): 5 Sit to Stand (QC): 5 Chair/Bua-mb-Hkrhe Xfer(QC): 5 Toilet Transfer (QC): 5 Car Transfer (QC): 55 Does the Patient Walk: Yes Walk 10 feet (QC): 5 Walk 50ft with 2 Turns (QC): 5 Walk 150 ft (QC): 5 Walking 10ft on Uneven Surface: 5 1 Step (curb) (QC): 5 4 Steps (QC): 5 12 Steps (QC): 5 Picking up an Object (QC): 5 Does the Pt use WC or Scooter?: No Wheel 50 feet with 2 turns (QC: 9 Wheel 150 feet: 9 PT Plan Treatment/Plan Treatment Plan: Continue Plan of Care Treatment Plan: Bed Mobility, Concurrent Therapy, Education, Functional Activity Navya, Functional Strength, Group Therapy, Gait, Safety, Therapeutic Exercise, Transfers Treatment Duration: Jul 18, 2021 Frequency: At least 5 of 7 days/Wk (IRF) Estimated Hrs Per Day: 1.5 hours per day Patient and/or Family Agrees t: Yes Time/GCodes Time In: 1330 Time Out: 1400 Total Billed Treatment Time: 30 Total Billed Treatment 1, GT, EX DEA RODRIGUEZ WHEY DEPARTMENT OPERATOR Jul 13, 2021 13:57
--- NOTE | 2021-07-13 15:30 | Progress Note ---
TANESHA NUGENT MED STUDENT 07/13/21 1530: Progress Note Assessment: Aniyah presents to IRF due to CVA and acute on chronic renal failure, with symptoms of dizziness, lightheadedness, and ataxia. OT: Demonstrates minimal need for assistance with hygiene/dressing activities. Good progress with good prognosis. PT: Uses walker for assistance ambulating. Able to ambulate independently and only requires assistance with setup. Good progress with good prognosis. Plan: Review on 07/15. Anticipate home health care needs. JOSY ABBASI DO 07/14/21 0501: Supervisory-Addendum Brief Verification & Attestation Participated in pt care: history, MDM, physical Personally performed: exam, history, MDM, supervision of care Care discussed with: Medical Student Procedures: n/a Results interpretation: Verified all documentation Verification and Attestation of Medical Student E/M Service A medical student performed and documented this service in my presence. I reviewed and verified all information documented by the medical student and made modifications to such information, when appropriate. I personally performed the physical exam and medical decision making. Josy Abbasi, Jul 14, 2021,05:01 TANESHA NUGENT MED STUDENT Jul 13, 2021 15:30 JOSY ABBASI DO Jul 14, 2021 05:01
[2021-07-13 20:00] VITALS: BP 169/75
[2021-07-13] MEDS: MIRTAZAPINE 15 MG (REMERON) TAB PO SCH (21:33)
[2021-07-13] MEDS: MELATONIN 3 MG TABLET PO SCH (21:34)
[2021-07-14] MEDS: inSUlin ASPART (NovoLOG) 1 UNIT/0.01 ML (CHARGE PER UNIT) SC SCH ×4 (06:00→20:46)
[2021-07-14] MEDS: CYANOCOBALAMIN 1,000 MCG (VITAMIN B-12) TABLET PO SCH (06:38)
[2021-07-14 07:51] VITALS: BP 179/79
[2021-07-14] MEDS: SOD POLYSTERENE 15 GM/60 ML (KAYEXALATE) UNIT DOSE PO SCH (08:50)
[2021-07-14] MEDS: polyethylene glycoL POWDER 17 GM (MIRALAX) PACK PO SCH ×2 (08:50→19:34)
[2021-07-14] MEDS: cloNIDine 0.1 MG (CATAPRES) TAB PO SCH ×3 (08:51→20:47)
[2021-07-14] MEDS: PANTOPRAZOLE 40 MG (PROTONIX) TAB PO SCH (08:51)
[2021-07-14] MEDS: DOCUSATE SODIUM 100 MG (COLACE) CAP PO SCH ×2 (08:51→20:48)
[2021-07-14] MEDS: amLODIPine 5 MG (NORVASC) TAB PO SCH ×2 (08:51→20:46)
[2021-07-14] MEDS: ASPIRIN E.C. 325 MG (ECOTRIN) TABLET PO SCH (08:51)
[2021-07-14] MEDS: SODIUM BICARBONATE 650 MG TABLET (NON-FORMULARY) PO SCH ×2 (08:51→20:45)
[2021-07-14] MEDS: doxAzosin 1 MG (CARDURA) TAB PO SCH ×2 (08:51→20:45)
[2021-07-14] MEDS: MECLIZINE 25 MG (ANTIVERT) TAB PO SCH ×3 (08:51→20:45)
[2021-07-14] MEDS: hydrALAZINE (APRESOLINE) 25 MG TAB PO SCH ×3 (08:51→20:46)
[2021-07-14] MEDS: SENNA W/DOCUSATE (SENOKOT S) TABLET PO SCH ×2 (08:51→20:48)
--- NOTE | 2021-07-14 08:54 | Physical Therapy Daily Note ---
PT Daily Note-Current Subjective Pt in bed upon arrival and agrees to PT. Pt has no c/o pain or dizziness prior to tx. Post functional gait activity, pt states he has slight dizziness, but it subsides with rest. Mental Status Patient Orientation: Person, Place, Time, Situation Transfers SCALE: Activities may be completed with or without assistive devices. 2-Ybwenyrwje-ecfhcuj completes the activity by him/herself with no assistance from a helper. 5-Set-up or Clean-up Assistance-helper sets up or cleans up; patient completes activity. [place] assists only prior to or following the activity. 4-Supervision or Touching Assistance-helper provides verbal cues and/or touching/steadying and/or contact guard assistance as patient completes activity. Assistance may be provided throughout the activity or intermittently. 3-Partial/Moderate Assistance-helper does LESS THAN HALF the effort. [place] lifts, holds or supports trunk or limbs, but provides less than half the effort. 2-Substantial/Maximal Assistance-helper does MORE THAN HALF the effort. [place] lifts or holds trunk or limbs and provides more than half the effort. 2-Elmgahoax-ouhcrk does ALL the effort. Patient does none of the effort to complete the activity. Or, the assistance of 2 or more helpers is required for the patient to complete the activity. If activity was not attempted, code reason: 7-Patient Refused. 9-Not Applicable-not attempted and the patient did not perform the activity before the current illness, exacerbation or injury. 10-Not Attempted due to Environmental Limitations-(lack of equipment, weather restraints, etc.). 88-Not Attempted due to Medical Conditions or Safety Concerns. Lying to Sitting/Side of Bed(Q: 5 Sit to Stand (QC): 4 Weight Bearing Right Lower Extremity: Right Full Weight Bearing Left Lower Extremity: Left Full Weight Bearing Gait Training Does the Patient Walk?: Yes Distance: 250', 200' x2 Walk 10 feet (QC): 4 Walk 50 ft with 2 Turns(QC): 4 Walk 150 ft (QC): 4 Gait Persons Needed: 1 Gait Assistive Device: FWW Pt amb with slower, steady gait. pt had slight LOB once but self corrected. Pt much more stable with amb today and yesterday pm. Wheelchair Training Does the Pt Use a Wheelchair?: No Stair Training Stair Training: Handrails/: 2 handrails #of Steps: 8 1 Step (curb) (QC): 4 4 Steps (QC): 4 Stairs: Pattern: Step to Pt has step to pattern first set of steps, and reciprocal for second set. Pt had steady gait, VC for sequencing. Balance Picking up an Object (QC): 4 Treatments Pt supine to sit dons shoes SBA. Pt sit to stand CGA and amb 200' to therapy gym. Pt has rest break, then amb 250', searching for cones throughout ARU. Pt coordination on R UE improving, able to grab and place cones w/o weight on R wrist. Pt then completes functional gait activities, amb through cones in figure 8s, stepping over, retro gait, and amb in tight spaces. Pt then returns to gym and completes stair training. Pt performs static standing balance activity while unsupported from UE and CGA. Pt used R UE to grab and place checkers w/ 1# wt on wrist. Pt then amb back to room and returns to recliner. Spouse in room at this time. Pt remains in recliner with all needs met, call light in hand. Assessment Current Status: Good Progress Pt required no VC for gait and had slight LOB, but self corrected. Pt more steady than last week. Pt fatigues quickly and requires frequent rest breaks. PT Bar Attendant Goals Custodial Goals PT Custodial Goals Time Frame: Jul 18, 2021 Roll Left & Right (QC): 5 Sit to Lying (QC): 5 Lying-Sitting on Side/Bed(QC): 5 Sit to Stand (QC): 5 Chair/Kau-rr-Gggcg Xfer(QC): 5 Toilet Transfer (QC): 5 Car Transfer (QC): 55 Does the Patient Walk: Yes Walk 10 feet (QC): 5 Walk 50ft with 2 Turns (QC): 5 Walk 150 ft (QC): 5 Walking 10ft on Uneven Surface: 5 1 Step (curb) (QC): 5 4 Steps (QC): 5 12 Steps (QC): 5 Picking up an Object (QC): 5 Does the Pt use WC or Scooter?: No Wheel 50 feet with 2 turns (QC: 9 Wheel 150 feet: 9 PT Plan Problem List Problem List: Balance Treatment/Plan Treatment Plan: Continue Plan of Care Treatment Plan: Bed Mobility, Concurrent Therapy, Education, Functional Activity Navya, Functional Strength, Group Therapy, Gait, Safety, Therapeutic Exercise, Transfers Treatment Duration: Jul 18, 2021 Frequency: At least 5 of 7 days/Wk (IRF) Estimated Hrs Per Day: 1.5 hours per day Patient and/or Family Agrees t: Yes Safety Risks/Education Patient Education: Gait Training, Steps Teaching Recipient: Patient Teaching Methods: Demonstration, Discussion Response to Teaching: Verbalize Understanding, Return Demonstration Time/GCodes Time In: 800 Time Out: 900 Total Billed Treatment Time: 60 Total Billed Treatment 1, NM x2, FA, GT DEA RODRIGUEZ STRINGED INSTRUMENT REPAIRER Jul 14, 2021 08:54
--- NOTE | 2021-07-14 09:08 | PM&R Progress Note ---
Subjective HPI/CC On Admission Date Seen by Provider: Jul 14, 2021 Time Seen by Provider: 09:15 Subjective/Events-last exam 07/14/2021: Patient dramatically improving No bowels moving since Tuesday Laxatives ordered Dizziness improved Check meds and labs 07/13/2021: Patient doing well Less dizziness Hemoglobin stable Potassium will need potassium binder 07/12/2021: Improved dizziness Eating better Check meds and labs at bedside 07/11/2021: Patient doing well Less dizzy Blood pressure much better Check meds and labs No falls 07/10/2021: Dizziness improved Youngest son at the bedside Blood pressure still high Potassium 4.9 we will stop Kayexalate Stopping losartan due to hyperkalemia Hemoglobin the same at 7.4 07/09/2021: Patient dramatically improved at bedside Sugar was 95 Reviewed blood pressure trend and will adjust medications again Checking labs tomorrow Kayexalate maintained although loose stools occur that is how hyperkalemia is resolved Not eating bananas anymore 07/08/2021: Patient doing really well Received erythropoietin yesterday Appreciate Dr. Cheng Taking Kayexalate Taking sodium bicarb tablets Monitor closely Dizziness Is improving Impulsive Pursuing disability 07/07/2021: Patient doing well Blood pressure very resistant so adding meds Consulting Dr. Cheng for iron deficiency and Procrit request Starting sodium bicarb Starting Kayexalate Had complete bowel evacuation this morning 07/06/2021: Pt doing okay Enema was done yesterday Laxatives will be given No dizziness if he lays in bed BP 180s so initiated Norvasc of 5mg twice daily and changed Hydralazine to 50 TID and Clonidine TID 07/05/2021: Patient doing well No concerns Bowel evacuation in process Maintained on laxatives No pain is reported We will start an IV iron infusion and vitamin B12 07/04/2021: Patient settling in well No BM yet only a few things that he is passed that are hard Continue on laxatives Creatinine 4.0 Hemoglobin 7.4 which is chronic No signs of bleeding Check meds and labs Therapy working with him Review of Systems General: Fatigue, Malaise Objective Exam Vital Signs Vital Signs Date Time Temp Pulse Resp B/P (MAP) Pulse Ox O2 Delivery O2 Flow Rate FiO2 07/14/21 20:20 Room Air 07/14/21 20:08 37.1 87 20 171/76 (107) 96 Capillary Refill : General Appearance: No Apparent Distress, WD/WN, Chronically ill HEENT: PERRL/EOMI, Normal ENT Inspection, Pharynx Normal Neck: Full Range of Motion, Normal Inspection, Non Tender, Supple, Carotid Bruit Respiratory: Chest Non Tender, Lungs Clear, Normal Breath Sounds, No Accessory Muscle Use, No Respiratory Distress Cardiovascular: Regular Rate, Rhythm, No Edema, No Gallop, No JVD, No Murmur, Normal Peripheral Pulses Gastrointestinal: Normal Bowel Sounds, No Organomegaly, No Pulsatile Mass, Non Tender, Soft Back: Normal Inspection, No CVA Tenderness, No Vertebral Tenderness Extremity: Normal Capillary Refill, Normal Inspection, Normal Range of Motion, Non Tender, No Calf Tenderness, No Pedal Edema Neurologic/Psychiatric: Alert, Oriented x3, No Motor/Sensory Deficits, telephone service adviser II- XII Norm as Tested, Abnormal Gait, Depressed Affect, Motor Weakness (generalized 3/5) Skin: Normal Color, Warm/Dry Lymphatic: No Adenopathy Results/Procedures Lab Patient resulted labs reviewed. FIM Transfers Therapy Code Descriptions/Definitions Functional [place] Measure: 0=Not Assessed/NA 4=Minimal Assistance 1=Total Assistance 5=Supervision or Setup 2=Maximal Assistance 6=Modified [place] 3=Moderate Assistance 7=Complete IndependenceSCALE: Activities may be completed with or without assistive devices. 0-Fmzsbvwjpv-sxxioak completes the activity by him/herself with no assistance from a helper. 5-Set-up or Clean-up Assistance-helper sets up or cleans up; patient completes activity. [place] assists only prior to or following the activity. 4-Supervision or Touching Assistance-helper provides verbal cues and/or touching/steadying and/or contact guard assistance as patient completes activity. Assistance may be provided throughout the activity or intermittently. 3-Partial/Moderate Assistance-helper does LESS THAN HALF the effort. [place] lifts, holds or supports trunk or limbs, but provides less than half the effort. 2-Substantial/Maximal Assistance-helper does MORE THAN HALF the effort. [place] lifts or holds trunk or limbs and provides more than half the effort. 2-Kcneacnhk-rtdlkx does ALL the effort. Patient does none of the effort to complete the activity. Or, the assistance of 2 or more helpers is required for the patient to complete the activity. If activity was not attempted, code reason: 7-Patient Refused. 9-Not Applicable-not attempted and the patient did not perform the activity before the current illness, exacerbation or injury. 10-Not Attempted due to Environmental Limitations-(lack of equipment, weather restraints, etc.). 88-Not Attempted due to Medical Conditions or Safety Concerns. Roll Left to Right (QC): 4 Sit to Lying (QC): 4 Sit to Stand (QC): 4 Chair/Fzu-sf-Yjpdr Xfer(QC): 3 Car Transfer (QC): 2 Gait Training Does the Patient Walk?: Yes Distance: 250', 200' x2 Walk 10 feet (QC): 4 Walk 50 ft with 2 Turns(QC): 4 Walk 150 ft (QC): 4 Walking 10ft/uneven surface-QC: 2 Gait Persons Needed: 1 Gait Assistive Device: FWW Wheelchair Training Does the Pt Use a Wheelchair?: No Wheel 50 ft with 2 turns (QC): 9 Wheel 150 ft (QC): 9 Stair Training Stair Training: Handrails/: 2 handrails #of Steps: 8 1 Step (curb) (QC): 4 4 Steps (QC): 4 12 Steps (QC): 88 Stairs: Pattern: Step to Balance Picking up an Object (QC): 4 ADL-Treatment Eating (QC): 6 Oral Hygiene (QC): 4 (SBA while pt stood at sink using countertop for stability) Bathing Location: L Arm, R Arm, L Upper Leg, R Upper Leg, L Lower Leg (including foot), R Lower Leg (including foot), Chest, Abdomen, Buttocks, Perineal Area Shower/Bathe Self (QC): 4 (SBA) Upper Body Dressing (QC): 5 (set up) Lower Body Dressing (QC): 4 (SBA) On/Off Footwear (QC): 5 (Set up) Toileting Hygiene (QC): 6 (Pt independent in don/doffing socks and shoes) Toilet Transfer (QC): 3 Assessment/Plan Assessment and Plan Assess & Plan/Chief Complaint Assessment: CVA cerebellar type Dizziness Fall risk h/o Back [id number] L2,3,4 CKD (chronic kidney disease) stage 4, GFR 15-29 ml/min Combined form of senile cataract of both eyes Diabetes mellitus High cholesterol Hypertension malignant type 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 MACK for Procrit request 07/08/2021: Status post with erythropoietin Continue Kayexalate Continue sodium bicarb 07/09/2021: Checking labs tomorrow Monitor blood pressure 07/10/2021: Stop losartan Stop Kayexalate Continue iron infusions 07/11/2021: Supportive care Blood pressure management 07/12/2021: Monitor hemoglobin Monitor creatinine Blood pressure improved 07/13/2021: Continue bowel regimen Potassium binder 07/14/2021: Monitor closely Improved status (1) CVA (cerebral vascular accident) MICHELLE ABBASI DO Jul 14, 2021 09:08
--- NOTE | 2021-07-14 11:11 | Occupational Ther Daily Note ---
OT Current Status-Daily Note Subjective Pt sitting in recliner, alert. No c/o pain. Pt agrees to therapy. Mental Status/Objective Patient Orientation: Person, Place, Time, Situation ADL-Treatment Therapy Code Descriptions/Definitions Functional [place] Measure: 0=Not Assessed/NA 4=Minimal Assistance 1=Total Assistance 5=Supervision or Setup 2=Maximal Assistance 6=Modified [place] 3=Moderate Assistance 7=Complete IndependenceSCALE: Activities may be completed with or without assistive devices. 9-Fdjjjtcehu-beljltl completes the activity by him/herself with no assistance from a helper. 5-Set-up or Clean-up Assistance-helper sets up or cleans up; patient completes activity. [place] assists only prior to or following the activity. 4-Supervision or Touching Assistance-helper provides verbal cues and/or touching/steadying and/or contact guard assistance as patient completes activity. Assistance may be provided throughout the activity or intermittently. 3-Partial/Moderate Assistance-helper does LESS THAN HALF the effort. [place] lifts, holds or supports trunk or limbs, but provides less than half the effort. 2-Substantial/Maximal Assistance-helper does MORE THAN HALF the effort. [place] lifts or holds trunk or limbs and provides more than half the effort. 7-Dmpjuwzdu-iylany does ALL the effort. Patient does none of the effort to complete the activity. Or, the assistance of 2 or more helpers is required for the patient to complete the activity. If activity was not attempted, code reason: 7-Patient Refused. 9-Not Applicable-not attempted and the patient did not perform the activity before the current illness, exacerbation or injury. 10-Not Attempted due to Environmental Limitations-(lack of equipment, weather restraints, etc.). 88-Not Attempted due to Medical Conditions or Safety Concerns. Bathing Location: L Arm, R Arm, L Upper Leg, R Upper Leg, L Lower Leg (including foot), R Lower Leg (including foot), Chest, Abdomen Shower/Bathe Self (QC): 4 (SBA, pt declined bathing buttocks or juan area.) Upper Body Dressing (QC): 5 (Set up) Lower Body Dressing (QC): 4 (SBA) On/Off Footwear: 5 (Set up) Other Treatment Pt sit->stand from recliner to FWW. VC given on hand placement, CGA. Pt ambulated to therapy room CGA. Pt engaged in sit<->stand pivot transfer, good return on skilled instruction of body mechanics with VC, CGA. Pt engaged in dynamic standing activity of placing resistive clothespins on container using FWW as stabilization. Pt participated 2x before taking rest period. Pt engaged in pipe tree activity while seated in chair. Pt completed 2 designs. During 3rd design, pt said he was getting sick. Pt vomited, nrsg notified. Pt was transported to room in w/c. Pt requested shower. Pt completed shower with set up, SBA. Pt don/doffed clothing, handed pt each article of clothing. Pt required CGA to hike pants over hips. After session, pt in recliner with call light/phone within reach. All needs were met in room. Education OT Patient Education: Safety issues, Transfer techniques Teaching Recipient: Patient, Significant Other Teaching Methods: Demonstration, Discussion Response to Teaching: Verbalize Understanding, Return Demonstration, Reinforcement Needed OT Short Term Goals Short Term Goals Time Frame: Jul 11, 2021 Eatin Oral hygiene: 4 Toileting hygiene: 4 Shower/bathe self: 4 Upper body dressin Lower body dressin Putting on/taking off footwear: 3 OT Telegraph Inspector Goals Retirement Goals Time Frame: Jul 18, 2021 Eating (QC): 6 Oral Hygiene (QC): 6 Toileting Hygiene (QC): 6 Shower/Bathe Self (QC): 5 Upper Body Dressing (QC): 6 Lower Body Dressing (QC): 5 On/Off Footwear (QC): 6 Additional Goals: 1-Demonstrate ADL Tasks, 2-Verbalize Understanding, 3- ImproveStrength/[place] 1=Demonstrate adherence to instructed precautions during ADL tasks. 2=Patient will verbalize/demonstrate understanding of assistive devices/modifi cations for ADL. 3=Patient will improve strength/tolerance for activity to enable patient to perform ADL's. OT Education/Plan Problem List/Assessment Assessment: Decreased Activ Tolerance, Decreased Safety Aware, Impaired Coordination, Impaired Funct Balance, Impaired Self-Care Skills Discharge Recommendations Plan/Recommendations: Continue POC Treatment Plan/Plan of Care Patient would benefit from OT for education, treatment and training to promote independence in ADL's, mobility, safety and/or upper extremity function for ADL's. Plan of Care: ADL Retraining, Functional Mobility, Group Exercise/Act as Ind, UE Funct Exercise/Act Treatment Duration: Jul 18, 2021 Frequency: At least 5 of 7 days/Wk (IRF) Estimated Hrs Per Day: 1.5 hours per day Agreement: Yes Rehab Potential: Fair Time/GCodes Start Time: 10:00 Stop Time: 11:00 Total Time Billed (hr/min): 60 Billed Treatment Time 1 Visit- Ex 3 (45 min) ADL (15 min) TIFFANIE SOTELO Jul 14, 2021 11:11
[2021-07-14] MEDS: [UNRECOGNIZED DRUG - REMARK] PO SCH (11:20)
--- NOTE | 2021-07-14 14:19 | Occupational Ther Daily Note ---
OT Current Status-Daily Note Subjective Pt sitting in recliner, alert. No c/o pain. Pt agrees to therapy. Mental Status/Objective Patient Orientation: Person, Place, Time, Situation ADL-Treatment Therapy Code Descriptions/Definitions Functional [place] Measure: 0=Not Assessed/NA 4=Minimal Assistance 1=Total Assistance 5=Supervision or Setup 2=Maximal Assistance 6=Modified [place] 3=Moderate Assistance 7=Complete IndependenceSCALE: Activities may be completed with or without assistive devices. 8-Jflimspogh-sruzwjg completes the activity by him/herself with no assistance from a helper. 5-Set-up or Clean-up Assistance-helper sets up or cleans up; patient completes activity. [place] assists only prior to or following the activity. 4-Supervision or Touching Assistance-helper provides verbal cues and/or touching/steadying and/or contact guard assistance as patient completes activity. Assistance may be provided throughout the activity or intermittently. 3-Partial/Moderate Assistance-helper does LESS THAN HALF the effort. [place] lifts, holds or supports trunk or limbs, but provides less than half the effort. 2-Substantial/Maximal Assistance-helper does MORE THAN HALF the effort. [place] lifts or holds trunk or limbs and provides more than half the effort. 6-Dralgctmi-wjtgzr does ALL the effort. Patient does none of the effort to complete the activity. Or, the assistance of 2 or more helpers is required for the patient to complete the activity. If activity was not attempted, code reason: 7-Patient Refused. 9-Not Applicable-not attempted and the patient did not perform the activity before the current illness, exacerbation or injury. 10-Not Attempted due to Environmental Limitations-(lack of equipment, weather restraints, etc.). 88-Not Attempted due to Medical Conditions or Safety Concerns. Pt has tub shower at home. Will address tub shower transfers next session. Other Treatment Pt participated in therapeutic exercise to strengthen B UE and increase activity tolerance for ADL tasks. Skilled instruction for correct technique and positioning. Pt engaged in resistive exercises using green ([employer]) theraband, 15 reps x2 sets of B bicep curls, B tricep extensions, B horizontal shoulder abduction, B internal/external rotation. Pt engaged in B shoulder flexion/extension against gravity 10 reps x2. After session, pt sitting in recliner with call light/phone within reach. All needs met in room. OT Short Term Goals Short Term Goals Time Frame: Jul 11, 2021 Eatin Oral hygiene: 4 Toileting hygiene: 4 Shower/bathe self: 4 Upper body dressin Lower body dressin Putting on/taking off footwear: 3 OT Long-Term Goals Manufacturing Support Engineer Goals Time Frame: Jul 18, 2021 Eating (QC): 6 Oral Hygiene (QC): 6 Toileting Hygiene (QC): 6 Shower/Bathe Self (QC): 5 Upper Body Dressing (QC): 6 Lower Body Dressing (QC): 5 On/Off Footwear (QC): 6 Additional Goals: 1-Demonstrate ADL Tasks, 2-Verbalize Understanding, 3- ImproveStrength/[place] 1=Demonstrate adherence to instructed precautions during ADL tasks. 2=Patient will verbalize/demonstrate understanding of assistive devices/modifications for ADL. 3=Patient will improve strength/tolerance for activity to enable patient to perform ADL's. OT Education/Plan Problem List/Assessment Assessment: Decreased UE Strength Discharge Recommendations Plan/Recommendations: Continue POC Treatment Plan/Plan of Care Patient would benefit from OT for education, treatment and training to promote independence in ADL's, mobility, safety and/or upper extremity function for ADL's. Plan of Care: ADL Retraining, Functional Mobility, Group Exercise/Act as Ind, UE Funct Exercise/Act Treatment Duration: Jul 18, 2021 Frequency: At least 5 of 7 days/Wk (IRF) Estimated Hrs Per Day: 1.5 hours per day Agreement: Yes Rehab Potential: Fair Time/GCodes Start Time: 13:30 Stop Time: 14:00 Total Time Billed (hr/min): 30 Billed Treatment Time 1 Visit- EX 2 (30 min) TIFFANIE SOTELO Jul 14, 2021 14:19
--- NOTE | 2021-07-14 14:26 | Physical Therapy Daily Note ---
PT Daily Note-Current Subjective Pt in recliner w/ S.O. in room upon arrival and agrees to tx. Pt has no c/o pain or dizziness. Pt doesn't feel sick or nauseous at this time, states he doesn't know what happened earlier. Mental Status Patient Orientation: Person, Place, Time, Situation Transfers SCALE: Activities may be completed with or without assistive devices. 6-Hulewkenvz-fbjcoso completes the activity by him/herself with no assistance from a helper. 5-Set-up or Clean-up Assistance-helper sets up or cleans up; patient completes activity. [place] assists only prior to or following the activity. 4-Supervision or Touching Assistance-helper provides verbal cues and/or touching/steadying and/or contact guard assistance as patient completes activity. Assistance may be provided throughout the activity or intermittently. 3-Partial/Moderate Assistance-helper does LESS THAN HALF the effort. [place] lifts, holds or supports trunk or limbs, but provides less than half the effort. 2-Substantial/Maximal Assistance-helper does MORE THAN HALF the effort. [place] lifts or holds trunk or limbs and provides more than half the effort. 5-Uglagybtv-vmfeai does ALL the effort. Patient does none of the effort to complete the activity. Or, the assistance of 2 or more helpers is required for the patient to complete the activity. If activity was not attempted, code reason: 7-Patient Refused. 9-Not Applicable-not attempted and the patient did not perform the activity before the current illness, exacerbation or injury. 10-Not Attempted due to Environmental Limitations-(lack of equipment, weather restraints, etc.). 88-Not Attempted due to Medical Conditions or Safety Concerns. Sit to Stand (QC): 4 Weight Bearing Right Lower Extremity: Right Full Weight Bearing Left Lower Extremity: Left Full Weight Bearing Gait Training Does the Patient Walk?: Yes Distance: 150' x2 Walk 10 feet (QC): 4 Walk 50 ft with 2 Turns(QC): 4 Walk 150 ft (QC): 4 Gait Persons Needed: 1 Gait Assistive Device: FWW Pt requires less VC for safety with gait. Able to amb to/from gym w/ one slight LOB and self corrected. Exercises NuStep Minutes: 10 NuStep Workload: 5 Treatments Pt in recliner, sit to stand and amb 150' to therapy gym. Pt completes NuStep at WL of 5 for 10 minutes. Pt then amb back to room and returns to recliner. Pt remains in recliner with SO in room and all needs met, call light in hand Assessment Current Status: Good Progress Pt increasing strength, endurance, and mobility. Pt able to amb with less LOB or VC needed PT Penitentiary Goals Penitentiary Goals PT Insights Manager Goals Time Frame: Jul 18, 2021 Roll Left & Right (QC): 5 Sit to Lying (QC): 5 Lying-Sitting on Side/Bed(QC): 5 Sit to Stand (QC): 5 Chair/Otq-ex-Ztaxd Xfer(QC): 5 Toilet Transfer (QC): 5 Car Transfer (QC): 55 Does the Patient Walk: Yes Walk 10 feet (QC): 5 Walk 50ft with 2 Turns (QC): 5 Walk 150 ft (QC): 5 Walking 10ft on Uneven Surface: 5 1 Step (curb) (QC): 5 4 Steps (QC): 5 12 Steps (QC): 5 Picking up an Object (QC): 5 Does the Pt use WC or Scooter?: No Wheel 50 feet with 2 turns (QC: 9 Wheel 150 feet: 9 PT Plan Treatment/Plan Treatment Plan: Continue Plan of Care Treatment Plan: Bed Mobility, Concurrent Therapy, Education, Functional Act ivity [place], Functional Strength, Group Therapy, Gait, Safety, Therapeutic Exercise, Transfers Treatment Duration: Jul 18, 2021 Frequency: At least 5 of 7 days/Wk (IRF) Estimated Hrs Per Day: 1.5 hours per day Patient and/or Family Agrees t: Yes Time/GCodes Time In: 1400 Time Out: 1430 Total Billed Treatment Time: 30 Total Billed Treatment 1, GT, DEA BUSTILLOS BRICK CHIMNEY SUPERVISOR Jul 14, 2021 14:26
[2021-07-14 20:08] VITALS: BP 171/76
[2021-07-14] MEDS: MELATONIN 3 MG TABLET PO SCH (20:47)
[2021-07-14] MEDS: MIRTAZAPINE 15 MG (REMERON) TAB PO SCH (20:47)
[2021-07-15] MEDS: inSUlin ASPART (NovoLOG) 1 UNIT/0.01 ML (CHARGE PER UNIT) SC SCH ×4 (06:12→21:57)
[2021-07-15] MEDS: CYANOCOBALAMIN 1,000 MCG (VITAMIN B-12) TABLET PO SCH (06:41)
--- NOTE | 2021-07-15 07:08 | PM&R Progress Note ---
Subjective HPI/CC On Admission Date Seen by Provider: Jul 15, 2021 Time Seen by Provider: 11:15 Subjective/Events-last exam 07/15/2021: Pt doing well Tuesday will be discharge day Education and training for the will be needed BP improved Bowels moving well Potassium still high Hgb stable 07/14/2021: Patient dramatically improving No bowels moving since Tuesday Laxatives ordered Dizziness improved Check meds and labs 07/13/2021: Patient doing well Less dizziness Hemoglobin stable Potassium will need potassium binder 07/12/2021: Improved dizziness Eating better Check meds and labs at bedside 07/11/2021: Patient doing well Less dizzy Blood pressure much better Check meds and labs No falls 07/10/2021: Dizziness improved Youngest son at the bedside Blood pressure still high Potassium 4.9 we will stop Kayexalate Stopping losartan due to hyperkalemia Hemoglobin the same at 7.4 07/09/2021: Patient dramatically improved at bedside Sugar was 95 Reviewed blood pressure trend and will adjust medications again Checking labs tomorrow Kayexalate maintained although loose stools occur that is how hyperkalemia is resolved Not eating bananas anymore 07/08/2021: Patient doing really well Received erythropoietin yesterday Appreciate Dr. Cheng Taking Kayexalate Taking sodium bicarb tablets Monitor closely Dizziness Is improving Impulsive Pursuing disability 07/07/2021: Patient doing well Blood pressure very resistant so adding meds Consulting Dr. Cheng for iron deficiency and Procrit request Starting sodium bicarb Starting Kayexalate Had complete bowel evacuation this morning 07/06/2021: Pt doing okay Enema was done yesterday Laxatives will be given No dizziness if he lays in bed BP 180s so initiated Norvasc of 5mg twice daily and changed Hydralazine to 50 TID and Clonidine TID 07/05/2021: Patient doing well No concerns Bowel evacuation in process Maintained on laxatives No pain is reported We will start an IV iron infusion and vitamin B12 07/04/2021: Patient settling in well No BM yet only a few things that he is passed that are hard Continue on laxatives Creatinine 4.0 Hemoglobin 7.4 which is chronic No signs of bleeding Check meds and labs Therapy working with him Review of Systems General: Fatigue, Malaise Neurological: Incoordination Objective Exam Vital Signs Vital Signs Date Time Temp Pulse Resp B/P (MAP) Pulse Ox O2 Delivery O2 Flow Rate FiO2 07/15/21 20:10 Room Air 07/15/21 20:10 36.8 90 20 176/83 (114) 97 Capillary Refill : General Appearance: No Apparent Distress, WD/WN, Chronically ill HEENT: PERRL/EOMI, Normal ENT Inspection, Pharynx Normal Neck: Full Range of Motion, Normal Inspection, Non Tender, Supple, Carotid Bruit Respiratory: Chest Non Tender, Lungs Clear, Normal Breath Sounds, No Accessory Muscle Use, No Respiratory Distress Cardiovascular: Regular Rate, Rhythm, No Edema, No Gallop, No JVD, No Murmur, Normal Peripheral Pulses Gastrointestinal: Normal Bowel Sounds, No Organomegaly, No Pulsatile Mass, Non Tender, Soft Back: Normal Inspection, No CVA Tenderness, No Vertebral Tenderness Extremity: Normal Capillary Refill, Normal Inspection, Normal Range of Motion, Non Tender, No Calf Tenderness, No Pedal Edema Neurologic/Psychiatric: Alert, Oriented x3, No Motor/Sensory Deficits, java development manager II- XII Norm as Tested, Abnormal Gait, Depressed Affect, Motor Weakness (generalized 3/5) Skin: Normal Color, Warm/Dry Lymphatic: No Adenopathy Results/Procedures Lab Laboratory Tests 07/15/21 06:36 Patient resulted labs reviewed. FIM Transfers Therapy Code Descriptions/Definitions Functional [place] Measure: 0=Not Assessed/NA 4=Minimal Assistance 1=Total Assistance 5=Supervision or Setup 2=Maximal Assistance 6=Modified [place] 3=Moderate Assistance 7=Complete IndependenceSCALE: Activities may be completed with or without assistive devices. 3-Lljlrddjhv-wieyaip completes the activity by him/herself with no assistance from a helper. 5-Set-up or Clean-up Assistance-helper sets up or cleans up; patient completes activity. [place] assists only prior to or following the activity. 4-Supervision or Touching Assistance-helper provides verbal cues and/or touching/steadying and/or contact guard assistance as patient completes activity. Assistance may be provided throughout the activity or intermittently. 3-Partial/Moderate Assistance-helper does LESS THAN HALF the effort. [place] lifts, holds or supports trunk or limbs, but provides less than half the effort. 2-Substantial/Maximal Assistance-helper does MORE THAN HALF the effort. [place] lifts or holds trunk or limbs and provides more than half the effort. 4-Flgbjdnqd-qissha does ALL the effort. Patient does none of the effort to complete the activity. Or, the assistance of 2 or more helpers is required for the patient to complete the activity. If activity was not attempted, code reason: 7-Patient Refused. 9-Not Applicable-not attempted and the patient did not perform the activity before the current illness, exacerbation or injury. 10-Not Attempted due to Environmental Limitations-(lack of equipment, weather r estraints, etc.). 88-Not Attempted due to Medical Conditions or Safety Concerns. Roll Left to Right (QC): 4 Sit to Lying (QC): 4 Sit to Stand (QC): 4 Chair/Sxn-ju-Dpfyu Xfer(QC): 3 Car Transfer (QC): 2 Gait Training Does the Patient Walk?: Yes Distance: 150' x2 Walk 10 feet (QC): 4 Walk 50 ft with 2 Turns(QC): 4 Walk 150 ft (QC): 4 Walking 10ft/uneven surface-QC: 2 Gait Persons Needed: 1 Gait Assistive Device: FWW Wheelchair Training Does the Pt Use a Wheelchair?: No Wheel 50 ft with 2 turns (QC): 9 Wheel 150 ft (QC): 9 Stair Training Stair Training: Handrails/: 2 handrails #of Steps: 8 1 Step (curb) (QC): 4 4 Steps (QC): 4 12 Steps (QC): 88 Stairs: Pattern: Step to Balance Picking up an Object (QC): 4 ADL-Treatment Eating (QC): 6 Oral Hygiene (QC): 4 (SBA while pt stood at sink using countertop for stability) Bathing Location: L Arm, R Arm, L Upper Leg, R Upper Leg, L Lower Leg (including foot), R Lower Leg (including foot), Chest, Abdomen Shower/Bathe Self (QC): 4 (SBA, pt declined bathing buttocks or juan area.) Upper Body Dressing (QC): 5 (Set up) Lower Body Dressing (QC): 4 (SBA) On/Off Footwear (QC): 5 (Set up) Toileting Hygiene (QC): 6 (Pt independent in don/doffing socks and shoes) Toilet Transfer (QC): 3 Assessment/Plan Assessment and Plan Assess & Plan/Chief Complaint Assessment: CVA cerebellar type Dizziness Fall risk h/o Back [id number] L2,3,4 CKD (chronic kidney disease) stage 4, GFR 15-29 ml/min Combined form of senile cataract of both eyes Diabetes mellitus High cholesterol Hypertension malignant type 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 MACK for Procrit request 07/08/2021: Status post with erythropoietin Continue Kayexalate Continue sodium bicarb 07/09/2021: Checking labs tomorrow Monitor blood pressure 07/10/2021: Stop losartan Stop Kayexalate Continue iron infusions 07/11/2021: Supportive care Blood pressure management 07/12/2021: Monitor hemoglobin Monitor creatinine Blood pressure improved 07/13/2021: Continue bowel regimen Potassium binder 07/14/2021: Monitor closely Improved status 07/15/2021: Supportive care Improved status (1) CVA (cerebral vascular accident) MICHELLE ABBASI DO Jul 15, 2021 07:08
[2021-07-15 07:19] LABS: HEMOGLOBIN 7.8 g/dL (13.3-17.7)
[2021-07-15 07:32] LABS: CALCIUM 8.3 MG/DL (8.5-10.1); CREATININE SERUM 3.23 MG/DL (0.60-1.30); POTASSIUM 5.4 MMOL/L (3.6-5.0)
[2021-07-15 07:49] VITALS: BP 169/74
[2021-07-15] MEDS: SODIUM BICARBONATE 650 MG TABLET (NON-FORMULARY) PO SCH ×2 (09:00→20:48)
[2021-07-15] MEDS: amLODIPine 5 MG (NORVASC) TAB PO SCH ×2 (09:00→20:47)
[2021-07-15] MEDS: [UNRECOGNIZED DRUG - REMARK] PO SCH (09:00)
[2021-07-15] MEDS: doxAzosin 1 MG (CARDURA) TAB PO SCH ×2 (09:00→20:47)
[2021-07-15] MEDS: ASPIRIN E.C. 325 MG (ECOTRIN) TABLET PO SCH (09:00)
[2021-07-15] MEDS: polyethylene glycoL POWDER 17 GM (MIRALAX) PACK PO SCH ×2 (09:00→20:02)
[2021-07-15] MEDS: MECLIZINE 25 MG (ANTIVERT) TAB PO SCH ×3 (09:00→20:47)
[2021-07-15] MEDS: PANTOPRAZOLE 40 MG (PROTONIX) TAB PO SCH (09:00)
[2021-07-15] MEDS: SENNA W/DOCUSATE (SENOKOT S) TABLET PO SCH ×2 (09:00→20:48)
[2021-07-15] MEDS: cloNIDine 0.1 MG (CATAPRES) TAB PO SCH ×3 (09:00→20:48)
[2021-07-15] MEDS: DOCUSATE SODIUM 100 MG (COLACE) CAP PO SCH ×2 (09:00→20:48)
--- NOTE | 2021-07-15 09:00 | Occupational Ther Daily Note ---
OT Current Status-Daily Note Subjective Pt supine in bed, alert. No c/o pain. Pt agrees to therapy. Mental Status/Objective Patient Orientation: Person, Place, Time, Situation Attachments: IV ADL-Treatment Pt agrees to shower after breakfast. Pt sit->stand from EOB using FWW for stability CGA. Pt stand<->sit using grabbars and FWW for stability to transfer to toilet and shower, CGA. Pt required assist in showering buttocks while standing and holding grabbars due to pt impulsivity and inconsistency with righting self and VC x2 given on hand placement, able to cleanse all other UB/LB. Pt don/doff UB clothes with set up. Due to impulsivity, pt CGA on sit- >stand to don LB clothing. Pt participated in skilled instruction of tub transfers and AE of shower bench/chair. Pt demonstrated fair return on skilled instruction with pt being inconsistent due to balance during shower bench transfer. VC x2 and TC given on standing pivot transfer, hand placement, and proper body mechanics. After session, pt in recliner with call light/phone wit suzie cobb. All needs met in room. Therapy Code Descriptions/Definitions Functional [place] Measure: 0=Not Assessed/NA 4=Minimal Assistance 1=Total Assistance 5=Supervision or Setup 2=Maximal Assistance 6=Modified [place] 3=Moderate Assistance 7=Complete IndependenceSCALE: Activities may be completed with or without assistive devices. 4-Nxxogdolxb-rxwxmfh completes the activity by him/herself with no assistance from a helper. 5-Set-up or Clean-up Assistance-helper sets up or cleans up; patient completes activity. [place] assists only prior to or following the activity. 4-Supervision or Touching Assistance-helper provides verbal cues and/or touchi ng/steadying and/or contact guard assistance as patient completes activity. Assistance may be provided throughout the activity or intermittently. 3-Partial/Moderate Assistance-helper does LESS THAN HALF the effort. [place] lifts, holds or supports trunk or limbs, but provides less than half the effort. 2-Substantial/Maximal Assistance-helper does MORE THAN HALF the effort. [place] lifts or holds trunk or limbs and provides more than half the effort. 8-Plgiwliuy-suufuy does ALL the effort. Patient does none of the effort to complete the activity. Or, the assistance of 2 or more helpers is required for the patient to complete the activity. If activity was not attempted, code reason: 7-Patient Refused. 9-Not Applicable-not attempted and the patient did not perform the activity before the current illness, exacerbation or injury. 10-Not Attempted due to Environmental Limitations-(lack of equipment, weather restraints, etc.). 88-Not Attempted due to Medical Conditions or Safety Concerns. Eating (QC): 6 (Pt able to open all containers and use regular silverware.) Oral Hygiene (QC): 6 (Pt sets up on own, able to complete independently in sitting.) Bathing Location: L Arm, R Arm, L Upper Leg, R Upper Leg, L Lower Leg (including foot), R Lower Leg (including foot), Chest, Abdomen, Perineal Area Shower/Bathe Self (QC): 3 (Pt able to cleanse UB area SBA. Pt able to cleanse LB areas of B lower legs, abdomen, and perineal area while seated. Pt required assist in cleansing buttock due to instability standing while holding grabbars. ) Upper Body Dressing (QC): 5 (Pt completed UB dressing with set up.) Lower Body Dressing (QC): 4 (Pt able to thread LB clothing over ankles sitting, CGA hiking over hips while standing using FWW for stability. Pt inconsistent due to balance.) On/Off Footwear: 5 (Set up in donning socks and shoes while seated. Pt can doff independently while seated.) Toileting Hygiene (QC): 4 (SBA. Pt manages clothing using grabbars and FWW for stabilization, cleanses self while seated.) Toilet Transfer (QC): 4 (CGA using grabbars and FWW for stability.) Education OT Patient Education: Transfer techniques, Use of adapted equipment Teaching Recipient: Patient Teaching Methods: Demonstration, Discussion Response to Teaching: Verbalize Understanding, Return Demonstration, Reinforcement Needed OT Short Term Goals Short Term Goals Time Frame: Jul 11, 2021 Eatin Oral hygiene: 4 Toileting hygiene: 4 Shower/bathe self: 4 Upper body dressin Lower body dressin Putting on/taking off footwear: 3 OT Space Control Agent Goals Shelter Goals Time Frame: Jul 18, 2021 Eating (QC): 6 (met) Oral Hygiene (QC): 6 (met) Toileting Hygiene (QC): 6 (not met) Shower/Bathe Self (QC): 5 (not met) Upper Body Dressing (QC): 6 (not met) Lower Body Dressing (QC): 5 (not met) On/Off Footwear (QC): 6 (not met) Additional Goals: 1-Demonstrate ADL Tasks, 2-Verbalize Understanding, 3- ImproveStrength/Nav[place] 1=Demonstrate adherence to instructed precautions during ADL tasks. 2=Patient will verbalize/demonstrate understanding of assistive devices/modifications for ADL. 3=Patient will improve strength/tolerance for activity to enable patient to perform ADL's. OT Education/Plan Problem List/Assessment Assessment: Decreased Safety Aware, Impaired Coordination, Impaired Funct Balance, Impaired Self-Care Skills Discharge Recommendations Plan/Recommendations: Continue POC Therapy Discharge Recommendati: Home & Family, Post Acute OT Equpiment Recommendations-D/C: Extended Bath Bench, Rails on Tub/Shower, Extended Shower Sprayer, Rails on Toilet Treatment Plan/Plan of Care Patient would benefit from OT for education, treatment and training to promote independence in ADL's, mobility, safety and/or upper extremity function for ADL's. Plan of Care: ADL Retraining, Functional Mobility, Group Exercise/Act as Ind, UE Funct Exercise/Act Treatment Duration: Jul 18, 2021 Frequency: At least 5 of 7 days/Wk (IRF) Estimated Hrs Per Day: 1.5 hours per day Agreement: Yes Rehab Potential: Fair Time/GCodes Start Time: 07:30 Stop Time: 09:00 Total Time Billed (hr/min): 90 Billed Treatment Time 1 Visit- ADL 5 (75 min) FA (15 min) TIFFANIE SOTELO Jul 15, 2021 09:00
[2021-07-15] MEDS: hydrALAZINE (APRESOLINE) 25 MG TAB PO SCH ×3 (11:18→20:47)
--- NOTE | 2021-07-15 11:27 | Physical Therapy Daily Note ---
PT Daily Note-Current Subjective Pt in recliner upon arrival and agrees to tx. Pt has no c/o pain or dizziness Mental Status Patient Orientation: Person, Place, Time, Situation Transfers SCALE: Activities may be completed with or without assistive devices. 2-Sgjgguzgob-uhemoyv completes the activity by him/herself with no assistance from a helper. 5-Set-up or Clean-up Assistance-helper sets up or cleans up; patient completes activity. [place] assists only prior to or following the activity. 4-Supervision or Touching Assistance-helper provides verbal cues and/or touching/steadying and/or contact guard assistance as patient completes activity. Assistance may be provided throughout the activity or intermittently. 3-Partial/Moderate Assistance-helper does LESS THAN HALF the effort. [place] lifts, holds or supports trunk or limbs, but provides less than half the effort. 2-Substantial/Maximal Assistance-helper does MORE THAN HALF the effort. [place] lifts or holds trunk or limbs and provides more than half the effort. 5-Xvwqrqquw-ejyszz does ALL the effort. Patient does none of the effort to complete the activity. Or, the assistance of 2 or more helpers is required for the patient to complete the activity. If activity was not attempted, code reason: 7-Patient Refused. 9-Not Applicable-not attempted and the patient did not perform the activity before the current illness, exacerbation or injury. 10-Not Attempted due to Environmental Limitations-(lack of equipment, weather restraints, etc.). 88-Not Attempted due to Medical Conditions or Safety Concerns. Sit to Stand (QC): 4 Weight Bearing Right Lower Extremity: Right Full Weight Bearing Left Lower Extremity: Left Full Weight Bearing Gait Training Does the Patient Walk?: Yes Distance: 250' x2, 200' x2 Walk 10 feet (QC): 4 Walk 50 ft with 2 Turns(QC): 4 Walk 150 ft (QC): 4 Gait Persons Needed: 1 Gait Assistive Device: FWW Pt much more steady with gait, requires Min VC for safety awareness. Pt had slight LOB and self corrected. Wheelchair Training Does the Pt Use a Wheelchair?: No Stair Training Stair Training: Handrails/: 2 handrails #of Steps: 8 1 Step (curb) (QC): 4 4 Steps (QC): 4 Stairs: Pattern: Step to Pt uses reciprocal when ascending steps and step to descending, pt is able to complete safely with no LOB. Exercises Standing: Hip Abduction, Hamstring curls, Heel/toe raises, Marching, Mini squats, Retro gait, Sit to Stand, Step-ups, Unilateral stance Standing Reps: 15 NuStep Minutes: 15 NuStep Workload: 5 Treatments Pt sit to stand from recliner and amb 250' on ARU to therapy gym. Pt completes NuStep for 15 minutes and WL of 5. Pt then amb another 250' and returns to therapy gym. Pt completes stair training CGA. Pt then performs Heath Balance test, scoring 36/56. Pt able to attempt all tasks in test this attempt. Pt amb another 200' and returns to therapy gym. Pt then completes standing ex in // bars with 2# wts on ankles. Pt completes LAQ for 5 mins w/ 2# wts, then amb back to room. Pt remains in recliner with all needs met, call light in hand. Assessment Current Status: Good Progress Pt Heath Balance test scores 36/56 on attempt, with much improvement from the attempt on Tuesday scoring 20/56. Pt fatigues quickly and requires frequent rest breaks during exercises and amb. PT Wound/Ostomy Nurse Goals Residential Goals PT Residential Goals Time Frame: Jul 18, 2021 Roll Left & Right (QC): 5 Sit to Lying (QC): 5 Lying-Sitting on Side/Bed(QC): 5 Sit to Stand (QC): 5 Chair/Cil-sf-Wkvtu Xfer(QC): 5 Toilet Transfer (QC): 5 Car Transfer (QC): 55 Does the Patient Walk: Yes Walk 10 feet (QC): 5 Walk 50ft with 2 Turns (QC): 5 Walk 150 ft (QC): 5 Walking 10ft on Uneven Surface: 5 1 Step (curb) (QC): 5 4 Steps (QC): 5 12 Steps (QC): 5 Picking up an Object (QC): 5 Does the Pt use WC or Scooter?: No Wheel 50 feet with 2 turns (QC: 9 Wheel 150 feet: 9 PT Plan Treatment/Plan Treatment Plan: Continue Plan of Care Treatment Plan: Bed Mobility, Concurrent Therapy, Education, Functional Activity Navya, Functional Strength, Group Therapy, Gait, Safety, Therapeutic Exercise, Transfers Treatment Duration: Jul 18, 2021 Frequency: At least 5 of 7 days/Wk (IRF) Estimated Hrs Per Day: 1.5 hours per day Patient and/or Family Agrees t: Yes Time/GCodes Time In: 1000 Time Out: 1130 Total Billed Treatment Time: 90 Total Billed Treatment 1, GT x2, NM x2, EX x2 DEA RODRIGUEZ DATA EXAMINATION CLERK Jul 15, 2021 11:27
[2021-07-15 20:10] VITALS: BP 176/83
[2021-07-15] MEDS: MIRTAZAPINE 15 MG (REMERON) TAB PO SCH (20:47)
[2021-07-15] MEDS: MELATONIN 3 MG TABLET PO SCH (20:48)
[2021-07-16] MEDS: inSUlin ASPART (NovoLOG) 1 UNIT/0.01 ML (CHARGE PER UNIT) SC SCH ×4 (05:38→21:14)
[2021-07-16] MEDS: CYANOCOBALAMIN 1,000 MCG (VITAMIN B-12) TABLET PO SCH (06:38)
[2021-07-16] MEDS: [UNRECOGNIZED DRUG - REMARK] PO SCH (07:37)
[2021-07-16] MEDS: SENNA W/DOCUSATE (SENOKOT S) TABLET PO SCH ×2 (07:37→21:41)
[2021-07-16] MEDS: hydrALAZINE (APRESOLINE) 25 MG TAB PO SCH ×3 (07:37→21:14)
[2021-07-16] MEDS: SODIUM BICARBONATE 650 MG TABLET (NON-FORMULARY) PO SCH ×2 (07:37→21:14)
[2021-07-16] MEDS: amLODIPine 5 MG (NORVASC) TAB PO SCH ×2 (07:37→21:14)
[2021-07-16] MEDS: doxAzosin 1 MG (CARDURA) TAB PO SCH ×2 (07:37→21:14)
[2021-07-16] MEDS: PANTOPRAZOLE 40 MG (PROTONIX) TAB PO SCH (07:37)
[2021-07-16] MEDS: cloNIDine 0.1 MG (CATAPRES) TAB PO SCH ×3 (07:37→21:15)
[2021-07-16] MEDS: ASPIRIN E.C. 325 MG (ECOTRIN) TABLET PO SCH (07:37)
[2021-07-16] MEDS: MECLIZINE 25 MG (ANTIVERT) TAB PO SCH ×3 (07:38→21:15)
[2021-07-16] MEDS: DOCUSATE SODIUM 100 MG (COLACE) CAP PO SCH ×2 (07:38→21:41)
[2021-07-16 07:40] VITALS: BP 183/83
--- NOTE | 2021-07-16 07:43 | Occupational Ther Daily Note ---
OT Current Status-Daily Note Subjective Pt supine in bed, alert. No c/o pain. Pt agrees to therapy. Mental Status/Objective Patient Orientation: Person, Place, Time, Situation ADL-Treatment Pt wanted to get clothes from closet. Pt EOB sit->stand using FWW for stability. VC required for pt to slow down on standing due to inconsistency with balance. Pt able to gather UB clothes from closet SBA while using FWW for support. Pt stooped to get LB dressing from drawers SBA using FWW for stabilization, no LOB noted. Pt CGA ambulating from closet to bathroom. VC x4 for body mechanics and energy conservation to reduce the risk of a fall event. Pt stand->sit using FWW and grab bars to toilet SBA. Pt don/doffed UB dressing while seated on toilet. Pt refused to change LB dressing. Pt SBA sit->stand from toilet, due to impulsivity in hiking pants over hips. VC given to use grab bars and FWW for stability. Pt ambulated from bathroom to recliner using FWW CGA with VC on hand placement, body mechanics and righting reactions. Pt stand-> sit, SBA to recliner using FWW for stability. Pt independent in eating breakfast, opening containers and using regular silverware to complete self feeding. Pt completed oral care/grooming while seated in recliner after all supplies were gathered. After session, pt sitting in recliner with call light/phone within reach. All needs met in room. Therapy Code Descriptions/Definitions Functional [place] Measure: 0=Not Assessed/NA 4=Minimal Assistance 1=Total Assistance 5=Supervision or Setup 2=Maximal Assistance 6=Modified [place] 3=Moderate Assistance 7=Complete IndependenceSCALE: Activities may be completed with or without assistive devices. 7-Alfimamqif-vppyzvv completes the activity by him/herself with no assistance from a helper. 5-Set-up or Clean-up Assistance-helper sets up or cleans up; patient completes activity. [place] assists only prior to or following the activity. 4-Supervision or Touching Assistance-helper provides verbal cues and/or touching/steadying and/or contact guard assistance as patient completes activity. Assistance may be provided throughout the activity or intermittently. 3-Partial/Moderate Assistance-helper does LESS THAN HALF the effort. [place] lifts, holds or supports trunk or limbs, but provides less than half the effort. 2-Substantial/Maximal Assistance-helper does MORE THAN HALF the effort. [place] lifts or holds trunk or limbs and provides more than half the effort. 9-Hjjkhanyr-hjqmuu does ALL the effort. Patient does none of the effort to complete the activity. Or, the assistance of 2 or more helpers is required for the patient to complete the activity. If activity was not attempted, code reason: 7-Patient Refused. 9-Not Applicable-not attempted and the patient did not perform the activity before the current illness, exacerbation or injury. 10-Not Attempted due to Environmental Limitations-(lack of equipment, weather restraints, etc.). 88-Not Attempted due to Medical Conditions or Safety Concerns. Eating (QC): 6 (Pt opens containers and uses regular silverware independently.) Oral Hygiene (QC): 5 (Pt completed while seated in recliner with set up.) Upper Body Dressing (QC): 6 (Pt retrieved shirt from closet and dof/don while seated on toilet independently.) Lower Body Dressing (QC): 7 (Pt refused to change LB dressing.) On/Off Footwear: 5 (Pt donned shoes with set up, while seated EOB.) Toileting Hygiene (QC): 4 (Pt SBA in hiking pants over hips due to balance instability.) Toilet Transfer (QC): 4 (SBA due to inconsistency with balance. VC to use grabbars and FWW for stability.) Education OT Patient Education: Safety issues, Transfer techniques Teaching Recipient: Patient Teaching Methods: Discussion Response to Teaching: Verbalize Understanding, Return Demonstration, Reinforcement Needed OT Short Term Goals Short Term Goals Time Frame: Jul 11, 2021 Eatin Oral hygiene: 4 Toileting hygiene: 4 Shower/bathe self: 4 Upper body dressin Lower body dressin Putting on/taking off footwear: 3 OT Detention Goals Detention Goals Time Frame: Jul 18, 2021 Eating (QC): 6 (met) Oral Hygiene (QC): 6 (met) Toileting Hygiene (QC): 6 (not met) Shower/Bathe Self (QC): 5 (not met) Upper Body Dressing (QC): 6 (not met) Lower Body Dressing (QC): 5 (not met) On/Off Footwear (QC): 6 (not met) Additional Goals: 1-Demonstrate ADL Tasks, 2-Verbalize Understanding, 3- ImproveStrength/[place] 1=Demonstrate adherence to instructed precautions during ADL tasks. 2=Patient will verbalize/demonstrate understanding of assistive devices/modifications for ADL. 3=Patient will improve strength/tolerance for activity to enable patient to perform ADL's. OT Education/Plan Problem List/Assessment Assessment: Decreased Safety Aware, Impaired Coordination, Impaired Funct Balance, Impaired Self-Care Skills Discharge Recommendations Plan/Recommendations: Continue POC Treatment Plan/Plan of Care Patient would benefit from OT for education, treatment and training to promote independence in ADL's, mobility, safety and/or upper extremity function for ADL's. Plan of Care: ADL Retraining, Functional Mobility, Group Exercise/Act as Ind, UE Funct Exercise/Act Treatment Duration: Jul 18, 2021 Frequency: At least 5 of 7 days/Wk (IRF) Estimated Hrs Per Day: 1.5 hours per day Agreement: Yes Rehab Potential: Fair Time/GCodes Start Time: 07:00 Stop Time: 08:00 Total Time Billed (hr/min): 60 Billed Treatment Time 1 Visit FA (15 min) ADL 3 (45 min) TIFFANIE SOTELO Jul 16, 2021 07:43
[2021-07-16] MEDS: polyethylene glycoL POWDER 17 GM (MIRALAX) PACK PO SCH ×2 (09:02→20:45)
--- NOTE | 2021-07-16 10:27 | Physical Therapy Daily Note ---
PT Daily Note-Current Subjective Pt siting in recliner upon arrival. Pt agrees to PT. Pain Location: No Pain Reported Mental Status Patient Orientation: Person, Place, Time, Situation Transfers SCALE: Activities may be completed with or without assistive devices. 6-Gsnpnbiret-bcskoyn completes the activity by him/herself with no assistance from a helper. 5-Set-up or Clean-up Assistance-helper sets up or cleans up; patient completes activity. [place] assists only prior to or following the activity. 4-Supervision or Touching Assistance-helper provides verbal cues and/or touching/steadying and/or contact guard assistance as patient completes activity. Assistance may be provided throughout the activity or intermittently. 3-Partial/Moderate Assistance-helper does LESS THAN HALF the effort. [place] lifts, holds or supports trunk or limbs, but provides less than half the effort. 2-Substantial/Maximal Assistance-helper does MORE THAN HALF the effort. [place] lifts or holds trunk or limbs and provides more than half the effort. 6-Gcbncumgg-nzwwuv does ALL the effort. Patient does none of the effort to complete the activity. Or, the assistance of 2 or more helpers is required for the patient to complete the activity. If activity was not attempted, code reason: 7-Patient Refused. 9-Not Applicable-not attempted and the patient did not perform the activity befo re the current illness, exacerbation or injury. 10-Not Attempted due to Environmental Limitations-(lack of equipment, weather re straints, etc.). 88-Not Attempted due to Medical Conditions or Safety Concerns. Roll Left & Right (QC): 6 Sit to Lying (QC): 6 Lying to Sitting/Side of Bed(Q: 6 Sit to Stand (QC): 6 Chair/Gtf-wd-Dmxwz Xfer(QC): 6 Toilet Transfer (QC): 6 Car Transfer (QC): 6 Weight Bearing Right Lower Extremity: Right Full Weight Bearing Left Lower Extremity: Left Full Weight Bearing Gait Training Does the Patient Walk?: Yes Distance: 500' x2 Walk 10 feet (QC): 4 Walk 50 ft with 2 Turns(QC): 4 Walk 150 ft (QC): 4 Walking 10ft/uneven surface-QC: 4 Gait Persons Needed: 1 Gait Assistive Device: FWW Wheelchair Training Does the Pt Use a Wheelchair?: No Stair Training Stair Training: Handrails/: 2 handrails #of Steps: 8 1 Step (curb) (QC): 4 4 Steps (QC): 4 12 Steps (QC): 7 Stairs: Pattern: Step to Balance Picking up an Object (QC): 88 Special Test Comments Pt did not attempt due to reported dizziness and lightheadedness with bending over. Treatments Pt transfers to standing, declines need for BR and amb. in hallway. Pt completes QC scoring items listed above. Pt returns to room at end of tx to rest with all needs met, call light in hand. Assessment Current Status: Good Progress Pt has demonstrated improvement in ambulation but still has occasional moments when pt's francisca increase and control decreases. PT Homeopathic Doctor Goals Alf Goals PT Homeopathic Doctor Goals Time Frame: Jul 18, 2021 Roll Left & Right (QC): 5 Sit to Lying (QC): 5 Lying-Sitting on Side/Bed(QC): 5 Sit to Stand (QC): 5 Chair/Hpk-az-Wxlay Xfer(QC): 5 Toilet Transfer (QC): 5 Car Transfer (QC): 55 Does the Patient Walk: Yes Walk 10 feet (QC): 5 Walk 50ft with 2 Turns (QC): 5 Walk 150 ft (QC): 5 Walking 10ft on Uneven Surface: 5 1 Step (curb) (QC): 5 4 Steps (QC): 5 12 Steps (QC): 5 Picking up an Object (QC): 5 Does the Pt use WC or Scooter?: No Wheel 50 feet with 2 turns (QC: 9 Wheel 150 feet: 9 PT Plan Problem List Problem List: Activity Tolerance, Balance, Gait Treatment/Plan Treatment Plan: Continue Plan of Care Treatment Plan: Bed Mobility, Concurrent Therapy, Education, Functional Activity Navya, Functional Strength, Group Therapy, Gait, Safety, Therapeutic Exercise, Transfers Treatment Duration: Jul 18, 2021 Frequency: At least 5 of 7 days/Wk (IRF) Estimated Hrs Per Day: 1.5 hours per day Patient and/or Family Agrees t: Yes Safety Risks/Education Patient Education: Gait Training, Correct Positioning Teaching Recipient: Patient Teaching Methods: Discussion Response to Teaching: Verbalize Understanding Time/GCodes Time In: 800 Time Out: 900 Total Billed Treatment Time: 60 Total Billed Treatment 1, GT x2 (25m) & FA x2 (35m) DONNELL AVILES PRINCIPAL ANDROID DEVELOPER Jul 16, 2021 10:27
--- NOTE | 2021-07-16 11:29 | Physical Therapy Daily Note ---
PT Daily Note-Current Subjective Pt in recliner upon arrival and agrees to PT. Pt has no c/o pain or dizziness at this time. Pt is ready for DC tomorrow Mental Status Patient Orientation: Person, Place, Time, Situation Transfers SCALE: Activities may be completed with or without assistive devices. 0-Lqkavstedw-muwlivq completes the activity by him/herself with no assistance from a helper. 5-Set-up or Clean-up Assistance-helper sets up or cleans up; patient completes activity. [place] assists only prior to or following the activity. 4-Supervision or Touching Assistance-helper provides verbal cues and/or touching/steadying and/or contact guard assistance as patient completes activity. Assistance may be provided throughout the activity or intermittently. 3-Partial/Moderate Assistance-helper does LESS THAN HALF the effort. [place] lifts, holds or supports trunk or limbs, but provides less than half the effort. 2-Substantial/Maximal Assistance-helper does MORE THAN HALF the effort. [place] lifts or holds trunk or limbs and provides more than half the effort. 7-Bkmztkdrm-ieqeyn does ALL the effort. Patient does none of the effort to complete the activity. Or, the assistance of 2 or more helpers is required for the patient to complete the activity. If activity was not attempted, code reason: 7-Patient Refused. 9-Not Applicable-not attempted and the patient did not perform the activity before the current illness, exacerbation or injury. 10-Not Attempted due to Environmental Limitations-(lack of equipment, weather restraints, etc.). 88-Not Attempted due to Medical Conditions or Safety Concerns. Weight Bearing Right Lower Extremity: Right Full Weight Bearing Left Lower Extremity: Left Full Weight Bearing Gait Training Does the Patient Walk?: Yes Distance: 300', 150' Walk 10 feet (QC): 5 Walk 50 ft with 2 Turns(QC): 5 Walk 150 ft (QC): 5 Gait Assistive Device: FWW Pt has more steady gait, able to self correct any gait deviations and had no LOB during this tx Wheelchair Training Does the Pt Use a Wheelchair?: No Balance Picking up an Object (QC): 5 Exercises NuStep Minutes: 10 NuStep Workload: 6 Treatments Pt sit to stand from recliner SBA and amb 300' on ARU and enters therapy gym. Pt completes NuStep on WL of 6 for 10 minutes, with one short rest break during. Pt states the increase of WL was much more difficult and "wore him out" quickly. Post NuStep, pt has short rest break then amb to halls. Pt picks up cone from floor SBA, using FWW with R UE for support. Pt then amb back to room. Pt remains in recliner with all needs met, call light in hand. Assessment Current Status: Good Progress Pt able to safely amb with no LOB during this tx. Pt increasing strength, endu emma, balance, and mobility. Pt is ready to DC tomorrow PT Conference Services Director Goals Conference Services Director Goals PT Conference Services Director Goals Time Frame: Jul 18, 2021 Roll Left & Right (QC): 5 Sit to Lying (QC): 5 Lying-Sitting on Side/Bed(QC): 5 Sit to Stand (QC): 5 Chair/Uha-eu-Yteox Xfer(QC): 5 Toilet Transfer (QC): 5 Car Transfer (QC): 55 Does the Patient Walk: Yes Walk 10 feet (QC): 5 Walk 50ft with 2 Turns (QC): 5 Walk 150 ft (QC): 5 Walking 10ft on Uneven Surface: 5 1 Step (curb) (QC): 5 4 Steps (QC): 5 12 Steps (QC): 5 Picking up an Object (QC): 5 Does the Pt use WC or Scooter?: No Wheel 50 feet with 2 turns (QC: 9 Wheel 150 feet: 9 PT Plan Treatment/Plan Treatment Plan: Continue Plan of Care Treatment Plan: Bed Mobility, Concurrent Therapy, Education, Functional Activity Navya, Functional Strength, Group Therapy, Gait, Safety, Therapeutic Exercise, Transfers Treatment Duration: Jul 18, 2021 Frequency: At least 5 of 7 days/Wk (IRF) Estimated Hrs Per Day: 1.5 hours per day Patient and/or Family Agrees t: Yes Time/GCodes Time In: 1100 Time Out: 1130 Total Billed Treatment Time: 30 Total Billed Treatment 1, GT, DEA BUSTILLOS URB[employer] PLANNER Jul 16, 2021 11:29
--- NOTE | 2021-07-16 12:40 | PM&R Progress Note ---
Subjective HPI/CC On Admission Date Seen by Provider: Jul 16, 2021 Time Seen by Provider: 12:45 Subjective/Events-last exam 07/16/2021: Patient doing well Discharge plan for tomorrow Reviewed meds Rose in [place] will be pharmacy 07/15/2021: Pt doing well Tuesday will be discharge day Education and training for the will be needed BP improved Bowels moving well Potassium still high Hgb stable 07/14/2021: Patient dramatically improving No bowels moving since Tuesday Laxatives ordered Dizziness improved Check meds and labs 07/13/2021: Patient doing well Less dizziness Hemoglobin stable Potassium will need potassium binder 07/12/2021: Improved dizziness Eating better Check meds and labs at bedside 07/11/2021: Patient doing well Less dizzy Blood pressure much better Check meds and labs No falls 07/10/2021: Dizziness improved Youngest son at the bedside Blood pressure still high Potassium 4.9 we will stop Kayexalate Stopping losartan due to hyperkalemia Hemoglobin the same at 7.4 07/09/2021: Patient dramatically improved at bedside Sugar was 95 Reviewed blood pressure trend and will adjust medications again Checking labs tomorrow Kayexalate maintained although loose stools occur that is how hyperkalemia is resolved Not eating bananas anymore 07/08/2021: Patient doing really well Received erythropoietin yesterday Appreciate Dr. Cheng Taking Kayexalate Taking sodium bicarb tablets Monitor closely Dizziness Is improving Impulsive Pursuing disability 07/07/2021: Patient doing well Blood pressure very resistant so adding meds Consulting Dr. Cheng for iron deficiency and Procrit request Starting sodium bicarb Starting Kayexalate Had complete bowel evacuation this morning 07/06/2021: Pt doing okay Enema was done yesterday Laxatives will be given No dizziness if he lays in bed BP 180s so initiated Norvasc of 5mg twice daily and changed Hydralazine to 50 TID and Clonidine TID 07/05/2021: Patient doing well No concerns Bowel evacuation in process Maintained on laxatives No pain is reported We will start an IV iron infusion and vitamin B12 07/04/2021: Patient settling in well No BM yet only a few things that he is passed that are hard Continue on laxatives Creatinine 4.0 Hemoglobin 7.4 which is chronic No signs of bleeding Check meds and labs Therapy working with him Review of Systems General: Fatigue, Malaise Objective Exam Vital Signs Vital Signs Date Time Temp Pulse Resp B/P (MAP) Pulse Ox O2 Delivery O2 Flow Rate FiO2 07/16/21 20:20 Room Air 07/16/21 20:00 37.2 86 20 179/77 (111) 97 Capillary Refill : General Appearance: No Apparent Distress, WD/WN, Chronically ill HEENT: PERRL/EOMI, Normal ENT Inspection, Pharynx Normal Neck: Full Range of Motion, Normal Inspection, Non Tender, Supple, Carotid Bruit Respiratory: Chest Non Tender, Lungs Clear, Normal Breath Sounds, No Accessory Muscle Use, No Respiratory Distress Cardiovascular: Regular Rate, Rhythm, No Edema, No Gallop, No JVD, No Murmur, Normal Peripheral Pulses Gastrointestinal: Normal Bowel Sounds, No Organomegaly, No Pulsatile Mass, Non Tender, Soft Back: Normal Inspection, No CVA Tenderness, No Vertebral Tenderness Extremity: Normal Capillary Refill, Normal Inspection, Normal Range of Motion, Non Tender, No Calf Tenderness, No Pedal Edema Neurologic/Psychiatric: Alert, Oriented x3, No Motor/Sensory Deficits, command center analyst II- XII Norm as Tested, Abnormal Gait, Depressed Affect, Motor Weakness (generalized 3/5) Skin: Normal Color, Warm/Dry Lymphatic: No Adenopathy Results/Procedures Lab Patient resulted labs reviewed. FIM Transfers Therapy Code Descriptions/Definitions Functional [place] Measure: 0=Not Assessed/NA 4=Minimal Assistance 1=Total Assistance 5=Supervision or Setup 2=Maximal Assistance 6=Modified [place] 3=Moderate Assistance 7=Complete IndependenceSCALE: Activities may be completed with or without assistive devices. 7-Alikntaxam-qfimisw completes the activity by him/herself with no assistance from a helper. 5-Set-up or Clean-up Assistance-helper sets up or cleans up; patient completes activity. [place] assists only prior to or following the activity. 4-Supervision or Touching Assistance-helper provides verbal cues and/or touching/steadying and/or contact guard assistance as patient completes activity. Assistance may be provided throughout the activity or intermittently. 3-Partial/Moderate Assistance-helper does LESS THAN HALF the effort. [place] lifts, holds or supports trunk or limbs, but provides less than half the effort. 2-Substantial/Maximal Assistance-helper does MORE THAN HALF the effort. [place] lifts or holds trunk or limbs and provides more than half the effort. 0-Otuuvhywx-izbqxf does ALL the effort. Patient does none of the effort to complete the activity. Or, the assistance of 2 or more helpers is required for the patient to complete the activity. If activity was not attempted, code reason: 7-Patient Refused. 9-Not Applicable-not attempted and the patient did not perform the activity before the current illness, exacerbation or injury. 10-Not Attempted due to Environmental Limitations-(lack of equipment, weather restraints, etc.). 88-Not Attempted due to Medical Conditions or Safety Concerns. Roll Left to Right (QC): 6 Sit to Lying (QC): 6 Sit to Stand (QC): 6 Chair/Psv-bt-Vipuy Xfer(QC): 6 Car Transfer (QC): 6 Gait Training Does the Patient Walk?: Yes Distance: 300', 150' Walk 10 feet (QC): 5 Walk 50 ft with 2 Turns(QC): 5 Walk 150 ft (QC): 5 Walking 10ft/uneven surface-QC: 4 Gait Persons Needed: 1 Gait Assistive Device: FWW Wheelchair Training Does the Pt Use a Wheelchair?: No Wheel 50 ft with 2 turns (QC): 9 Wheel 150 ft (QC): 9 Stair Training Stair Training: Handrails/: 2 handrails #of Steps: 8 1 Step (curb) (QC): 4 4 Steps (QC): 4 12 Steps (QC): 7 Stairs: Pattern: Step to Balance Picking up an Object (QC): 5 ADL-Treatment Eating (QC): 6 (Pt opens containers and uses regular silverware independently.) Oral Hygiene (QC): 5 (Pt completed while seated in recliner with set up.) Bathing Location: L Arm, R Arm, L Upper Leg, R Upper Leg, L Lower Leg (including foot), R Lower Leg (including foot), Chest, Abdomen, Perineal Area Shower/Bathe Self (QC): 3 (Pt able to cleanse UB area SBA. Pt able to cleanse LB areas of B lower legs, abdomen, and perineal area while seated. Pt required assist in cleansing buttock due to instability standing while holding grabbars. ) Upper Body Dressing (QC): 6 (Pt retrieved shirt from closet and dof/don while seated on toilet independently.) Lower Body Dressing (QC): 7 (Pt refused to change LB dressing.) On/Off Footwear (QC): 5 (Pt donned shoes with set up, while seated EOB.) Toileting Hygiene (QC): 4 (Pt SBA in hiking pants over hips due to balance in stability.) Toilet Transfer (QC): 4 (SBA due to inconsistency with balance. 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 MACK for Procrit request 07/08/2021: Status post with erythropoietin Continue Kayexalate Continue sodium bicarb 07/09/2021: Checking labs tomorrow Monitor blood pressure 07/10/2021: Stop losartan Stop Kayexalate Continue iron infusions 07/11/2021: Supportive care Blood pressure management 07/12/2021: Monitor hemoglobin Monitor creatinine Blood pressure improved 07/13/2021: Continue bowel regimen Potassium binder 07/14/2021: Monitor closely Improved status 07/15/2021: Supportive care Improved status 07/16/2021: Supportive care Discharge tomorrow (1) CVA (cerebral vascular accident) MICHELLE ABBASI DO Jul 16, 2021 12:40
--- NOTE | 2021-07-16 13:44 | Occupational Ther Daily Note ---
OT Current Status-Daily Note Subjective Pt sitting in recliner, alert. No c/o pain. Pt agrees to therapy. Mental Status/Objective Patient Orientation: Person, Place, Time, Situation ADL-Treatment Therapy Code Descriptions/Definitions Functional [place] Measure: 0=Not Assessed/NA 4=Minimal Assistance 1=Total Assistance 5=Supervision or Setup 2=Maximal Assistance 6=Modified [place] 3=Moderate Assistance 7=Complete IndependenceSCALE: Activities may be completed with or without assistive devices. 2-Aeaodmmerm-izaqyot completes the activity by him/herself with no assistance from a helper. 5-Set-up or Clean-up Assistance-helper sets up or cleans up; patient completes activity. [place] assists only prior to or following the activity. 4-Supervision or Touching Assistance-helper provides verbal cues and/or touching/steadying and/or contact guard assistance as patient completes activity. Assistance may be provided throughout the activity or intermittently. 3-Partial/Moderate Assistance-helper does LESS THAN HALF the effort. [place] lifts, holds or supports trunk or limbs, but provides less than half the effort. 2-Substantial/Maximal Assistance-helper does MORE THAN HALF the effort. [place] lifts or holds trunk or limbs and provides more than half the effort. 6-Ucewuclrq-oqokvi does ALL the effort. Patient does none of the effort to complete the activity. Or, the assistance of 2 or more helpers is required for the patient to complete the activity. If activity was not attempted, code reason: 7-Patient Refused. 9-Not Applicable-not attempted and the patient did not perform the activity before the current illness, exacerbation or injury. 10-Not Attempted due to Environmental Limitations-(lack of equipment, weather restraints, etc.). 88-Not Attempted due to Medical Conditions or Safety Concerns. Other Treatment Pt engaged in therapeutic exercise to strengthen B UE for improved ADL performance. Pt engaged in 15 reps x2 sets of each using green theraband for resistance: B shoulder abductions, horizontal shoulder abductions, B internal/external rotations, B bicep curls, B tricep extensions. Pt engaged in sit<-> stand using FWW for stability 5x to improve balance during transfers from recliner. Pt had good return on skilled instruction with 1 VC on body positioning. Pt demonstrated tub transfer using grab bars, tub bench, and FWW after VC on pivot transfer and hand placement. Pt had good return on skilled education. After session pt sitting in recliner with call light/phone within reach. All needs met in room. Education OT Patient Education: Transfer techniques, Use of adapted equipment Teaching Recipient: Patient, Family, Significant Other Teaching Methods: Demonstration, Discussion Response to Teaching: Verbalize Understanding, Return Demonstration, Reinforcement Needed OT Short Term Goals Short Term Goals Time Frame: Jul 11, 2021 Eatin Oral hygiene: 4 Toileting hygiene: 4 Shower/bathe self: 4 Upper body dressin Lower body dressin Putting on/taking off footwear: 3 OT Prison Goals Prison Goals Time Frame: Jul 18, 2021 Eating (QC): 6 (met) Oral Hygiene (QC): 6 (met) Toileting Hygiene (QC): 6 (not met) Shower/Bathe Self (QC): 5 (not met) Upper Body Dressing (QC): 6 (not met) Lower Body Dressing (QC): 5 (not met) On/Off Footwear (QC): 6 (not met) Additional Goals: 1-Demonstrate ADL Tasks, 2-Verbalize Understanding, 3- ImproveStrength/Navya 1=Demonstrate adherence to instructed precautions during ADL tasks. 2=Patient will verbalize/demonstrate understanding of assistive devices/modifications for ADL. 3=Patient will improve strength/tolerance for activity to enable patient to perform ADL's. OT Education/Plan Problem List/Assessment Assessment: Decreased Safety Aware, Decreased UE Strength, Impaired Coordination, Impaired Funct Balance Discharge Recommendations Plan/Recommendations: Continue POC Treatment Plan/Plan of Care Patient would benefit from OT for education, treatment and training to promote independence in ADL's, mobility, safety and/or upper extremity function for ADL's. Plan of Care: ADL Retraining, Functional Mobility, Group Exercise/Act as Ind, UE Funct Exercise/Act Treatment Duration: Jul 18, 2021 Frequency: At least 5 of 7 days/Wk (IRF) Estimated Hrs Per Day: 1.5 hours per day Agreement: Yes Rehab Potential: Fair Time/GCodes Start Time: 13:00 Stop Time: 13:30 Total Time Billed (hr/min): 30 Billed Treatment Time 1 Visit- EX (15 min) FA (15 min) TIFFANIE SOTELO Jul 16, 2021 13:44
[2021-07-16 20:00] VITALS: BP 179/77
[2021-07-16] MEDS: MIRTAZAPINE 15 MG (REMERON) TAB PO SCH (21:15)
[2021-07-16] MEDS: MELATONIN 3 MG TABLET PO SCH (21:15)
[2021-07-17] MEDS: inSUlin ASPART (NovoLOG) 1 UNIT/0.01 ML (CHARGE PER UNIT) SC SCH ×2 (05:43→11:20)
[2021-07-17] MEDS: CYANOCOBALAMIN 1,000 MCG (VITAMIN B-12) TABLET PO SCH (06:50)
[2021-07-17] MEDS ORDERED: ASPI325T32 PO (07:02)
[2021-07-17] MEDS ORDERED: HYDR-3923 PO (07:02)
[2021-07-17] MEDS ORDERED: NF-SODBICA PO (07:02)
[2021-07-17] MEDS ORDERED: INSU100I34 SQ (07:02)
[2021-07-17] MEDS ORDERED: DOXA1TAB2 PO (07:02)
[2021-07-17] MEDS ORDERED: MIRT-47 PO (07:02)
[2021-07-17] MEDS ORDERED: AMLO-250 PO (07:02)
[2021-07-17] MEDS ORDERED: MELA3TAB39 PO (07:02)
[2021-07-17] MEDS ORDERED: ATOR20TA66 PO (07:02)
[2021-07-17] MEDS ORDERED: PANT40TA52 PO (07:02)
[2021-07-17] MEDS ORDERED: ERGO1250 PO (07:02)
[2021-07-17] MEDS ORDERED: CYAN-41 PO (07:02)
[2021-07-17] MEDS ORDERED: CLN.1T PO (07:02)
[2021-07-17] MEDS ORDERED: MECL-149 PO (07:02)
[2021-07-17] MEDS ORDERED: MONT10TA32 PO (07:02)
[2021-07-17] MEDS ORDERED: PATI8.4P PO (07:02)
--- NOTE | 2021-07-17 07:04 | D/C HH Face to Face Order ---
D/C HH Face to Face Orders Reconcile Patient Problems Problems Reviewed?: Yes Instructions for Patient HH Patient Instructions/FollowUp: Dr Springer as scheduled Neurology as scheduled Nephrology as scheduled ENT as scheduled Physician to follow Patient: Racheal Discharge Diet for Home: ADA Diet, Cardiac Diet Patient Problems: CVA Patient Data-Allergies,Ht & Wt Patient Allergies: Coded Allergies: diltiazem (Verified Allergy, Unknown, 07/03/21) Home Health Need/Face to Face Date of Face to Face: Jul 17, 2021 Clinical Findings: Generalized weakness and fatigue, Instability, Muscle weakness, Unsteady gait I have seen Pt jvut-gw-baqw: Yes Discharged To: Home Diagnosis/Conditions: CVA Patient is Homebound due to: Samy fall risk due to instabilty, Muscle weakness Homebound Status Due to the above stated illness, injury or surgical procedure (medical condition or diagnosis) and associated clinical findings, the patient is homebound because of his/her inability to leave home except with aid of a supportive device and/or person AND leaving the home requires a considerable and taxing effort or is medically contraindicated. Pt req the following assistanc: Walker Home Health Nursing Orders Home Health Services Order: Nursing Services, Clerical Secretary-Evaluate & Treat, Physical Therapy-Evaluate & Treat Home Health Infusion Therapy Line Start Date: Jul 05, 2021 Certify Stmt I certify that this patient is under my care and that I, a nurse practitioner or a physician; a bilingual office assistant working with me, had a face to face encounter that -meets the physician face to face encounter requirements with this patient as dated. MICHELLE SPRINGER DO Jul 17, 2021 07:04
--- NOTE | 2021-07-17 07:04 | Discharge Summary ---
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 MACK for Procrit request 07/08/2021: Status post with erythropoietin Continue Kayexalate Continue sodium bicarb 07/09/2021: Checking labs tomorrow Monitor blood pressure 07/10/2021: Stop losartan Stop Kayexalate Continue iron infusions 07/11/2021: Supportive care Blood pressure management 07/12/2021: Monitor hemoglobin Monitor creatinine Blood pressure improved 07/13/2021: Continue bowel regimen Potassium binder 07/14/2021: Monitor closely Improved status 07/15/2021: Supportive care Improved status 07/16/2021: Supportive care Discharge tomorrow (1) CVA (cerebral vascular accident) Discharge Summary Discharge Physical Examination Allergies: Coded Allergies: diltiazem (Verified Allergy, Unknown, 07/03/21) Vitals & I&Os Vital Signs Date Time Temp Pulse Resp B/P (MAP) Pulse Ox O2 Delivery O2 Flow Rate FiO2 07/17/21 16:43 36.8 99 16 175/74 95 Room Air General Appearance: Alert, Oriented X3, Cooperative Respiratory: Clear to Auscultation Cardiovascular: Regular Rate Neuro: Normal Gait, Normal Speech, Strength at 5/5 X4 Ext Psych/Mental Status: Mental Status NL Hospital Course Was the Problem List Reviewed?: Yes Hospital course: Patient had an uneventful 3-week hospital course in inpatient rehab after transferred from [facility] after a CVA. Blood pressure was an issue which caused chronic kidney disease stage IV so he is meds were increased incrementally and hyperkalemia managed. Patient had no indication for dialysis. Patient participated in all therapy and ultimately regain enough function to go home with . Bowel function returned back to normal and sleep cycle return back to normal. He was deemed stable for discharge Labs (last 24 hrs) Laboratory Tests 07/03/21 20:53: Glucometer 184H 07/04/21 05:42: Glucometer 103 07/04/21 05:56: White Blood Count 12.5H, Red Blood Count 2.49L, Hemoglobin 7.4L, Hematocrit 22L, Mean Corpuscular Volume 89, Mean Corpuscular Hemoglobin 30, Mean Corpuscular H emoglobin Concent 33, Red Cell Distribution Width 12.5, Platelet Count 364, Mean Platelet Volume 9.2, Immature Granulocyte % (Auto) 1, Neutrophils (%) (Auto) 70, Lymphocytes (%) (Auto) 19, Monocytes (%) (Auto) 7, Eosinophils (%) (Auto) 3, Basophils (%) (Auto) 1, Neutrophils # (Auto) 8.7H, Lymphocytes # (Auto) 2.3, Monocytes # (Auto) 0.9, Eosinophils # (Auto) 0.4H, Basophils # (Auto) 0.1, Immature Granulocyte # (Auto) 0.1, Sodium Level 130L, Potassium Level 4.9, Chloride Level 110H, Carbon Dioxide Level 13L, Anion Gap 7, Blood Urea Nitrogen 57H, Creatinine 4.05H, Estimat Glomerular Filtration Rate 15, BUN/Creatinine Ratio 14, Glucose Level 108H, Calcium Level 8.1L, Corrected Calcium 9.2, Iron Level 28L, Total Bilirubin 0.3, Aspartate Amino Transf (AST/SGOT) 15, Alanine Aminotransferase (ALT/SGPT) 17, Alkaline Phosphatase 78, Total Protein 5.3L, Albumin 2.6L, Vitamin B12 Level 395 07/04/21 11:44: Glucometer 119H 07/04/21 16:10: Glucometer 126H 07/04/21 20:22: Glucometer 166H 07/05/21 05:37: Glucometer 108 07/05/21 10:49: Glucometer 136H 07/05/21 15:56: Glucometer 155H 07/05/21 20:24: Glucometer 141H 07/06/21 05:39: Glucometer 113H 07/06/21 10:53: Glucometer 161H 07/06/21 15:29: Glucometer 125H 07/06/21 20:22: Glucometer 162H 07/07/21 05:09: Glucometer 97 07/07/21 06:35: Sodium Level 134L, Potassium Level 5.7H, Chloride Level 111H, Carbon Dioxide Level 16L, Anion Gap 7, Blood Urea Nitrogen 45H, Creatinine 3.27#H, Estimat Glomerular Filtration Rate 19, BUN/Creatinine Ratio 14, Glucose Level 102, Calcium Level 8.4L, Corrected Calcium 9.4, Total Bilirubin 0.4, Aspartate Amino Transf (AST/SGOT) 13, Alanine Aminotransferase (ALT/SGPT) 14, Alkaline Phosphatase 86, Total Protein 5.7L, Albumin 2.7L 07/07/21 10:54: Glucometer 134H 07/07/21 14:00: Stool Occult Blood Immunoassay NEGATIVE 07/07/21 15:18: Glucometer 150H 07/07/21 20:27: Glucometer 113H 07/08/21 05:46: Glucometer 85 07/08/21 11:01: Glucometer 121H 07/08/21 15:36: Glucometer 169H 07/08/21 20:35: Glucometer 132H 07/09/21 05:44: Glucometer 95 07/09/21 11:18: Glucometer 165H 07/09/21 16:39: Glucometer 187H 07/09/21 21:08: Glucometer 190H 07/10/21 05:32: Glucometer 82 07/10/21 05:55: White Blood Count 10.1, Red Blood Count 2.51L, Hemoglobin 7.4L, Hematocrit 22L, Mean Corpuscular Volume 89, Mean Corpuscular Hemoglobin 30, Mean Corpuscular Hemoglobin Concent 33, Red Cell Distribution Width 12.6, Platelet Count 381, Mean Platelet Volume 9.2, Immature Granulocyte % (Auto) 1, Neutrophils (%) (Auto) 65, Lymphocytes (%) (Auto) 23, Monocytes (%) (Auto) 7, Eosinophils (%) (Auto) 4, Basophils (%) (Auto) 1, Neutrophils # (Auto) 6.5, Lymphocytes # (Auto) 2.4, Monocytes # (Auto) 0.7, Eosinophils # (Auto) 0.4H, Basophils # (Auto) 0.1, Immature Granulocyte # (Auto) 0.1, Sodium Level 136, Potassium Level 4.9, Chl oride Level 108H, Carbon Dioxide Level 20L, Anion Gap 8, Blood Urea Nitrogen 37H , Creatinine 3.02H, Estimat Glomerular Filtration Rate 21, BUN/Creatinine Ratio 12, Glucose Level 83, Calcium Level 7.9L, Corrected Calcium 8.9, Total Bilirubin 0.3, Aspartate Amino Transf (AST/SGOT) 23, Alanine Aminotransferase (ALT/SGPT) 31, Alkaline Phosphatase 91, Total Protein 5.4L, Albumin 2.7L 07/10/21 10:48: Glucometer 146H 07/10/21 15:33: Glucometer 165H 07/10/21 21:13: Glucometer 245H 07/11/21 05:26: Glucometer 178H 07/11/21 10:53: Glucometer 110 07/11/21 15:12: Glucometer 133H 07/11/21 20:04: Glucometer 219H 07/12/21 05:28: Glucometer 76 07/12/21 11:20: Glucometer 143H 07/12/21 15:33: Glucometer 214H 07/12/21 20:49: Glucometer 184H 07/13/21 05:34: White Blood Count 12.2H, Red Blood Count 2.55L, Hemoglobin 7.6L, Hematocrit 23L, Mean Corpuscular Volume 91, Mean Corpuscular Hemoglobin 30, Mean Corpuscular Hemoglobin Concent 33, Red Cell Distribution Width 13.2, Platelet Count 417H, Mean Platelet Volume 9.4, Immature Granulocyte % (Auto) 1, Neutrophils (%) (Auto) 70, Lymphocytes (%) (Auto) 19, Monocytes (%) (Auto) 6, Eosinophils (%) (Auto) 3, Basophils (%) (Auto) 1, Neutrophils # (Auto) 8.5H, Lymphocytes # (Auto) 2.3, Monocytes # (Auto) 0.8, Eosinophils # (Auto) 0.4H, Basophils # (Auto) 0.1, Immature Granulocyte # (Auto) 0.1, Sodium Level 135, Potassium Level 5.7H, Chloride Level 108H, Carbon Dioxide Level 18L, Anion Gap 9, Blood Urea Nitrogen 43H, Creatinine 3.33H, Estimat Glomerular Filtration Rate 19, BUN/Creatinine Ratio 13, Glucose Level 107H, Calcium Level 7.8L, Corrected Calcium 8.8, Total Bilirubin 0.2, Aspartate Amino Transf (AST/SGOT) 21, Alanine Aminotransferase (ALT/SGPT) 36, Alkaline Phosphatase 92, Total Protein 5.5L, Albumin 2.8L 07/13/21 06:11: Glucometer 104 07/13/21 10:51: Glucometer 269H 07/13/21 15:28: Glucometer 180H 07/13/21 20:23: Glucometer 160H 07/14/21 05:36: Glucometer 87 07/14/21 10:51: Glucometer 111H 07/14/21 15:37: Glucometer 263H 07/14/21 20:34: Glucometer 230H 07/15/21 05:48: Glucometer 77 07/15/21 06:36: Hemoglobin 7.8L, Hematocrit 25L, Sodium Level 139, Potassium Level 5.4H, Chloride Level 111H, Carbon Dioxide Level 18L, Anion Gap 10, Blood Urea Nitrogen 43H, Creatinine 3.23H, Estimat Glomerular Filtration Rate 20, BUN/Creatinine Ratio 13, Glucose Level 74, Calcium Level 8.3L 07/15/21 10:55: Glucometer 80 07/15/21 15:59: Glucometer 195H 07/15/21 21:54: Glucometer 247H 07/16/21 05:34: Glucometer 129H 07/16/21 11:06: Glucometer 98 07/16/21 17:06: Glucometer 237H 07/16/21 20:52: Glucometer 219H 07/17/21 05:42: Glucometer 76 07/17/21 11:17: Glucometer 151H Pending Labs Laboratory Tests 07/03/21 20:53: Glucometer 184 07/04/21 05:42: Glucometer 103 07/04/21 05:56: White Blood Count 12.5, Red Blood Count 2.49, Hemoglobin 7.4, Hematocrit 22, Mean Corpuscular Volume 89, Mean Corpuscular Hemoglobin 30, Mean Corpuscular Hemoglobin Concent 33, Red Cell Distribution Width 12.5, Platelet Count 364, Mean Platelet Volume 9.2, Immature Granulocyte % (Auto) 1, Neutrophils (%) (Auto) 70, Lymphocytes (%) (Auto) 19, Monocytes (%) (Auto) 7, Eosinophils (%) (Auto) 3, Basophils (%) (Auto) 1, Neutrophils # (Auto) 8.7, Lymphocytes # (Auto) 2.3, Monocytes # (Auto) 0.9, Eosinophils # (Auto) 0.4, Basophils # (Auto) 0.1, Immature Granulocyte # (Auto) 0.1, Sodium Level 130, Potassium Level 4.9, Chloride Level 110, Carbon Dioxide Level 13, Anion Gap 7, Blood Urea Nitrogen 57, Creatinine 4.05, Estimat Glomerular Filtration Rate 15, BUN/Creatinine Ratio 14, Glucose Level 108, Calcium Level 8.1, Corrected Calcium 9.2, Iron Level 28, Total Bilirubin 0.3, Aspartate Amino Transf (AST/SGOT) 15, Alanine Aminotransferase (ALT/SGPT) 17, Alkaline Phosphatase 78, Total Protein 5.3, Albumin 2.6, Vitamin B12 Level 395 07/04/21 11:44: Glucometer 119 07/04/21 16:10: Glucometer 126 07/04/21 20:22: Glucometer 166 07/05/21 05:37: Glucometer 108 07/05/21 10:49: Glucometer 136 07/05/21 15:56: Glucometer 155 07/05/21 20:24: Glucometer 141 07/06/21 05:39: Glucometer 113 07/06/21 10:53: Glucometer 161 07/06/21 15:29: Glucometer 125 07/06/21 20:22: Glucometer 162 07/07/21 05:09: Glucometer 97 07/07/21 06:35: Sodium Level 134, Potassium Level 5.7, Chloride Level 111, Carbon Dioxide Level 16, Anion Gap 7, Blood Urea Nitrogen 45, Creatinine 3.27, Estimat Glomerular Filtration Rate 19, BUN/Creatinine Ratio 14, Glucose Level 102, Calcium Level 8.4, Corrected Calcium 9.4, Total Bilirubin 0.4, Aspartate Amino Transf (AST/SGOT) 13, Alanine Aminotransferase (ALT/SGPT) 14, Alkaline Phosphatase 86, Total Protein 5.7, Albumin 2.7 07/07/21 10:54: Glucometer 134 07/07/21 14:00: Stool Occult Blood Immunoassay NEGATIVE 07/07/21 15:18: Glucometer 150 07/07/21 20:27: Glucometer 113 07/08/21 05:46: Glucometer 85 07/08/21 11:01: Glucometer 121 07/08/21 15:36: Glucometer 169 07/08/21 20:35: Glucometer 132 07/09/21 05:44: Glucometer 95 07/09/21 11:18: Glucometer 165 07/09/21 16:39: Glucometer 187 07/09/21 21:08: Glucometer 190 07/10/21 05:32: Glucometer 82 07/10/21 05:55: White Blood Count 10.1, Red Blood Count 2.51, Hemoglobin 7.4, Hematocrit 22, Mean Corpuscular Volume 89, Mean Corpuscular Hemoglobin 30, Mean Corpuscular Hemoglobin Concent 33, Red Cell Distribution Width 12.6, Platelet Count 381, Mean Platelet Volume 9.2, Immature Granulocyte % (Auto) 1, Neutrophils (%) (Auto) 65, Lymphocytes (%) (Auto) 23, Monocytes (%) (Auto) 7, Eosinophils (%) (Auto) 4, Basophils (%) (Auto) 1, Neutrophils # (Auto) 6.5, Lymphocytes # (Auto) 2.4, Monocytes # (Auto) 0.7, Eosinophils # (Auto) 0.4, Basophils # (Auto) 0.1, Immature Granulocyte # (Auto) 0.1, Sodium Level 136, Potassium Level 4.9, Chloride Level 108, Carbon Dioxide Level 20, Anion Gap 8, Blood Urea Nitrogen 37, Creatinine 3.02, Estimat Glomerular Filtration Rate 21, BUN/Creatinine Ratio 12, Glucose Level 83, Calcium Level 7.9, Corrected Calcium 8.9, Total Bilirubin 0.3, Aspartate Amino Transf (AST/SGOT) 23, Alanine Aminotransferase (ALT/SGPT) 31, Alkaline Phosphatase 91, Total Protein 5.4, Albumin 2.7 07/10/21 10:48: Glucometer 146 07/10/21 15:33: Glucometer 165 07/10/21 21:13: Glucometer 245 07/11/21 05:26: Glucometer 178 07/11/21 10:53: Glucometer 110 07/11/21 15:12: Glucometer 133 07/11/21 20:04: Glucometer 219 07/12/21 05:28: Glucometer 76 07/12/21 11:20: Glucometer 143 07/12/21 15:33: Glucometer 214 07/12/21 20:49: Glucometer 184 07/13/21 05:34: White Blood Count 12.2, Red Blood Count 2.55, Hemoglobin 7.6, Hematocrit 23, Mean Corpuscular Volume 91, Mean Corpuscular Hemoglobin 30, Mean Corpuscular Hemoglobin Concent 33, Red Cell Distribution Width 13.2, Platelet Count 417, Mean Platelet Volume 9.4, Immature Granulocyte % (Auto) 1, Neutrophils (%) (Auto) 70, Lymphocytes (%) (Auto) 19, Monocytes (%) (Auto) 6, Eosinophils (%) (Auto) 3, Basophils (%) (Auto) 1, Neutrophils # (Auto) 8.5, Lymphocytes # (Auto) 2.3, Monocytes # (Auto) 0.8, Eosinophils # (Auto) 0.4, Basophils # (Auto) 0.1, Immature Granulocyte # (Auto) 0.1, Sodium Level 135, Potassium Level 5.7, Chloride Level 108, Carbon Dioxide Level 18, Anion Gap 9, Blood Urea Nitrogen 43, Creatinine 3.33, Estimat Glomerular Filtration Rate 19, BUN/Creatinine Ratio 13, Glucose Level 107, Calcium Level 7.8, Corrected Calcium 8.8, Total Bilirubin 0.2, Aspartate Amino Transf (AST/SGOT) 21, Alanine Aminotransferase (ALT/SGPT) 36, Alkaline Phosphatase 92, Total Protein 5.5, Albumin 2.8 07/13/21 06:11: Glucometer 104 07/13/21 10:51: Glucometer 269 07/13/21 15:28: Glucometer 180 07/13/21 20:23: Glucometer 160 07/14/21 05:36: Glucometer 87 07/14/21 10:51: Glucometer 111 07/14/21 15:37: Glucometer 263 07/14/21 20:34: Glucometer 230 07/15/21 05:48: Glucometer 77 07/15/21 06:36: Hemoglobin 7.8, Hematocrit 25, Sodium Level 139, Potassium Level 5.4, Chloride Level 111, Carbon Dioxide Level 18, Anion Gap 10, Blood Urea Nitrogen 43, Creatinine 3.23, Estimat Glomerular Filtration Rate 20, BUN/Creatinine Ratio 13, Glucose Level 74, Calcium Level 8.3 07/15/21 10:55: Glucometer 80 07/15/21 15:59: Glucometer 195 07/15/21 21:54: Glucometer 247 07/16/21 05:34: Glucometer 129 07/16/21 11:06: Glucometer 98 07/16/21 17:06: Glucometer 237 07/16/21 20:52: Glucometer 219 07/17/21 05:42: Glucometer 76 07/17/21 11:17: Glucometer 151 Discharge Home Medications: Active Scripts Active Sps (Sodium Polystyrene Sulfonate) 15 Gm/60 Ml Oral.susp 15 Gm PO Q48H Melatonin 3 Mg Tablet 6 Mg PO HS Vitamin B-12 (Cyanocobalamin (Vitamin B-12)) 1,000 Mcg Tablet 1,000 Mcg PO DAILY@0700 Pantoprazole Sodium 40 Mg Tablet.dr 40 Mg PO DAILY Meclizine HCl 25 Mg Tablet 50 Mg PO TID Sodium Bicarbonate 650 Mg Tablet 650 Mg PO BID Mirtazapine 15 Mg Tab.rapdis 15 Mg PO HS Aspirin EC (Aspirin) 325 Mg Tablet.dr 325 Mg PO DAILY Amlodipine Besylate 5 Mg Tablet 5 Mg PO BID Doxazosin Mesylate 1 Mg Tablet 1 Mg PO BID Hydralazine HCl 25 Mg Tablet 100 Mg PO TID Vitamin D2 (Ergocalciferol (Vitamin D2)) 1,250 Mcg Capsule 1,250 Mcg PO WEEKLY Montelukast Sodium 10 Mg Tablet 10 Mg PO HS Clonidine HCl 0.1 Mg Tablet 0.1 Mg PO BID Deysi Carmona U-100 (Insulin Glargine,Hum.rec.anlog) 100 Unit/1 Ml Insuln.pen 10 Unit SQ HS Atorvastatin Calcium 20 Mg Tablet 20 Mg PO HS Reported Loratadine 10 Mg Tablet 10 Mg PO DAILY PRN Instructions to patient/family Please see electronic discharge instructions given to patient. Diagnosis/Problems Diagnosis/Problems (1) CVA (cerebral vascular accident) MICHELLE ABBASI DO Jul 17, 2021 07:04
[2021-07-17] MEDS: SENNA W/DOCUSATE (SENOKOT S) TABLET PO SCH (07:48)
[2021-07-17] MEDS: SODIUM BICARBONATE 650 MG TABLET (NON-FORMULARY) PO SCH (07:48)
[2021-07-17] MEDS: ASPIRIN E.C. 325 MG (ECOTRIN) TABLET PO SCH (07:48)
[2021-07-17] MEDS: DOCUSATE SODIUM 100 MG (COLACE) CAP PO SCH (07:48)
[2021-07-17] MEDS: cloNIDine 0.1 MG (CATAPRES) TAB PO SCH ×2 (07:48→13:19)
[2021-07-17] MEDS: doxAzosin 1 MG (CARDURA) TAB PO SCH (07:48)
[2021-07-17] MEDS: amLODIPine 5 MG (NORVASC) TAB PO SCH (07:49)
[2021-07-17] MEDS: hydrALAZINE (APRESOLINE) 25 MG TAB PO SCH ×2 (07:49→13:19)
[2021-07-17] MEDS: MECLIZINE 25 MG (ANTIVERT) TAB PO SCH ×2 (07:49→13:19)
[2021-07-17] MEDS: PANTOPRAZOLE 40 MG (PROTONIX) TAB PO SCH (07:49)
[2021-07-17] MEDS: [UNRECOGNIZED DRUG - REMARK] PO SCH (07:49)
[2021-07-17 07:55] VITALS: BP 175/74
[2021-07-17] MEDS: polyethylene glycoL POWDER 17 GM (MIRALAX) PACK PO SCH (08:53)
--- NOTE | 2021-07-17 09:28 | Therapy Team Discharge Summary ---
Therapy Discharge Summary Discharge Recommendations Date of Discharge Occupational Therapy Pt admitted to ARU s/p CVA. At OF, he was independent with ADLs and functional mobility, no AD/AE. Upon initial evaluation, pt was independent with eating, min A oral care, CGA showering, CGA upper body dressing, max A lower body dressing, max A footwear and min A toileting. OT tx focused on increasing safety and independence with ADLs, and increasing BUE strength and activity tolerance. At discharge, pt was independent with eating, oral care, and upper body dressing, min A showering, CGA lower body dressing, and SBA toileting. Pt made functional progress towards LTGs, but only attained goals for eating, oral care and UE dressing. OT recommendations include tub transfer bench and a walker. Pt to discharge from facility on this date, d/c from OT. Decreased Safety Aware, Decreased UE Strength, Impaired Coordination, Impaired Funct Balance PT Nursing Home Goals Sporting Goods Salesperson Goals PT Nursing Home Goals Time Frame: Jul 18, 2021 Roll Left to Right (QC): 5 Sit to Lying (QC): 5 Lying-Sitting on Side/Bed(QC): 5 Sit to Stand (QC): 5 Chair/Qbf-qy-Zulss Xfer(QC): 5 Car Transfer (QC): 55 Does the Patient Walk: Yes Walk 10 feet (QC): 5 Walk 10ft-Uneven Surface(QC): 5 Walk 50ft with 2 Turns (QC): 5 Walk 150 ft (QC): 5 Does the Pt use WC or Scooter?: No Wheel 50 feet with 2 turns (QC: 9 1 Step (curb) (QC): 5 4 Steps (QC): 5 12 Steps (QC): 5 Picking up an Object (QC): 5 OT Sporting Goods Salesperson Goals Sporting Goods Salesperson Goals Time Frame: Jul 18, 2021 Eating (QC): 6 (met) Oral Hygiene (QC): 6 (met) Shower/Bathe Self (QC): 5 (not met) Upper Body Dressing (QC): 6 (met) Lower Body Dressing (QC): 5 (not met) On/Off Footwear (QC): 6 (not met) Toileting Hygiene (QC): 6 (not met) Toilet/Commode Transfer (QC): 5 Additional Goals: 1-Demonstrate ADL Tasks, 2-Verbalize Understanding, 3- ImproveStrength/Navya 1=Demonstrate adherence to instructed precautions during ADL tasks. 2=Patient will verbalize/demonstrate understanding of assistive devices/modifications for ADL. 3=Patient will improve strength/tolerance for activity to enable patient to perform ADL's. BC HERNANDEZ OT Jul 17, 2021 09:28
[2021-07-17] MEDS ORDERED: SODI15OR5 PO (09:57)
--- NOTE | 2021-07-17 14:44 | Therapy Team Discharge Summary ---
Therapy Discharge Summary Discharge Recommendations Date of Discharge Physical Therapy Patient came to rehab following a CVA. Upon evaluation patient performed rolling and supine <-> sit with min/mod assist, sit <-> stand with min/mod assist, transfers max assist, car transfer max assist, ambulated 135' with a rolling walker with max assist (including 50' with at least two turns of 90 degrees and 10' over an uneven surface), and can go up and down 1 step using a rolling walker with max assist. Patient has been performing bed mobility and transfer training, balance and endurance training, functional strengthening, stair training, gait training, and education. 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 Now, patient performs bed mobility and transfers with independence, car transfer independent, ambulates 500' with a rolling walker with CGA/SBA (including 50' with at least 2 turns of 90 degrees and 10' over an uneven surface), and can go up and down 4 steps using 2 handrails with CGA/SBA. Patient is being discharged from this facility today and will be discharged from PT at this time. Occupational Therapy Decreased Safety Aware, Decreased UE Strength, Impaired Coordination, Impaired Funct Balance PT [facility] Goals Associate Professor Of Art Goals PT Associate Professor Of Art Goals Time Frame: Jul 18, 2021 Roll Left to Right (QC): 5 Sit to Lying (QC): 5 Lying-Sitting on Side/Bed(QC): 5 Sit to Stand (QC): 5 Chair/Are-yh-Ccaro Xfer(QC): 5 Car Transfer (QC): 55 Does the Patient Walk: Yes Walk 10 feet (QC): 5 Walk 10ft-Uneven Surface(QC): 5 Walk 50ft with 2 Turns (QC): 5 Walk 150 ft (QC): 5 Does the Pt use WC or Scooter?: No Wheel 50 feet with 2 turns (QC: 9 1 Step (curb) (QC): 5 4 Steps (QC): 5 12 Steps (QC): 5 Picking up an Object (QC): 5 OT Associate Professor Of Art Goals [facility] Goals Time Frame: Jul 18, 2021 Eating (QC): 6 (met) Oral Hygiene (QC): 6 (met) Shower/Bathe Self (QC): 5 (not met) Upper Body Dressing (QC): 6 (met) Lower Body Dressing (QC): 5 (not met) On/Off Footwear (QC): 6 (not met) Toileting Hygiene (QC): 6 (not met) Toilet/Commode Transfer (QC): 5 Additional Goals: 1-Demonstrate ADL Tasks, 2-Verbalize Understanding, 3-ImproveStrength/Navya 1=Demonstrate adherence to instructed precautions during ADL tasks. 2=Patient will verbalize/demonstrate understanding of assistive devices/modifications for ADL. 3=Patient will improve strength/tolerance for activity to enable patient to perform ADL's. JOSE KRUGER PT Jul 17, 2021 14:44
[2021-07-17 16:43] VITALS: BP 175/74
== END 2021-07-17 16:37 | disposition home health service (06) | DRG 57 ==
PROVIDERS: ADMIT Internal Medicine; ATTEND Internal Medicine
DX: I69.398 Other sequelae of cerebral infarction (principal); N18.4 Chronic kidney disease, stage 4 (severe); N17.9 Acute kidney failure, unspecified; R42 Dizziness and giddiness; R26.89 Other abnormalities of gait and mobility; R53.1 Weakness; Z91.81 History of falling; I12.9 Hypertensive chronic kidney disease with stage 1 through stage 4 chronic kidney disease, or unspecified chronic kidney disease; E11.22 Type 2 diabetes mellitus with diabetic chronic kidney disease; E11.65 Type 2 diabetes mellitus with hyperglycemia; E11.21 Type 2 diabetes mellitus with diabetic nephropathy; E11.3513 Type 2 diabetes mellitus with proliferative diabetic retinopathy with macular edema, bilateral; H25.9 Unspecified age-related cataract; D50.9 Iron deficiency anemia, unspecified; E87.5 Hyperkalemia; K59.00 Constipation, unspecified; E78.00 Pure hypercholesterolemia, unspecified; M19.91 Primary osteoarthritis, unspecified site; F41.9 Anxiety disorder, unspecified; F32.A Depression, unspecified; R22.0 Localized swelling, mass and lump, head; Z79.4 Long term (current) use of insulin; Z79.82 Long term (current) use of aspirin; Z88.8 Allergy status to other drugs, medicaments and biological substances
CPT/HCPCS: 36415; 80048; 80053; 82274; 82607; 82947; 83540; 85014; 85018; 85025

== ENCOUNTER → 2021-10-08 | Outpatient (CLI) | payer OTHER ==
[~2021-10-08] MED LIST changes: -ACETAMINOPHEN 500 MG TAB (TYLENOL) PO PRN; -ALPRAZolam 0.25 MG (XANAX) TAB PO PRN; -BISACODYL 10 MG SUPP (DULCOLAX) PR PRN; -CALCIUM CARBONATE 500 MG (TUMS) TAB.CHEW PO PRN; +CYAN-41 PO; -DOCUSATE SODIUM 100 MG (COLACE) CAP PO PRN; +DOXA1TAB2 PO; +ERGO1250 PO; -FLEET ENEMA ADULT 1 EA BTL PR PRN; +HYDR-3923 PO; -LACTULOSE SYRUP 10GM/15ML (ENULOSE) 30ML UDC PO PRN; -LOPERAMIDE 2 MG (IMODIUM) TABLET PO PRN; +LORA10TA7 PO; +MECL-149 PO; +MELA3TAB39 PO; -MELATONIN 3 MG TABLET PO PRN; +MIRT-47 PO; +MONT-40 PO; +NF-SODBICA PO; -ONDANSETRON 4 MG (ZOFRAN) ORAL DISSOLVE TAB PO PRN; +PATI8.4P PO; +SODI15OR5 PO; -diphenhydrAMINE 25 MG TAB (BENADRYL) PO PRN; -guaiFENesin/CODEINE (ROBITUSSIN AC) 10ML UDC PO PRN
[2021-10-08 14:42] LABS: BASOPHILS # (AUTO) 0.1 10^3/uL (0.0-0.1); BASOPHILS % (AUTO) 1 % (0-10); EOSINOPHILS # (AUTO) 0.4 10^3/uL (0.0-0.3); EOSINOPHILS % (AUTO) 6 % (0-10); HEMATOCRIT 22 % (40-54); HEMOGLOBIN 7.4 g/dL (13.3-17.7); LYMPHOCYTES % (AUTO) 30 % (12-44); MEAN CORPUSCULAR HEMOGLOBIN 30 pg (25-34); MEAN CORPUSCULAR HGB CONC 33 g/dL (32-36); MEAN CORPUSCULAR VOLUME 90 fL (80-99); MEAN PLATELET VOLUME 8.7 fL (9.0-12.2); MONOCYTES # (AUTO) 0.5 10^3/uL (0.0-1.0); MONOCYTES % (AUTO) 7 % (0-12); NEUTROPHILS # (AUTO) 3.6 10^3/uL (1.8-7.8); NEUTROPHILS % (AUTO) 55 % (42-75); PLATELET COUNT 264 10^3/uL (130-400); WHITE BLOOD COUNT 6.6 10^3/uL (4.3-11.0)
[2021-10-08 15:04] LABS: ALBUMIN 3.4 GM/DL (3.2-4.5); BILIRUBIN,TOTAL 0.5 MG/DL (0.1-1.0); CALCIUM 8.3 MG/DL (8.5-10.1); CREATININE SERUM 3.62 MG/DL (0.60-1.30); TOTAL PROTEIN 6.3 GM/DL (6.4-8.2)
== END ==
LOC: LAB 14:14
PROVIDERS: ATTEND Internal Medicine
DX: I10 Essential (primary) hypertension (principal)
CPT/HCPCS: 36415; 80053; 85025